=== PATIENT | male | born 1950 | race Caucasian/White ===

== ENCOUNTER 2018-04-21 17:04 | Emergency (ER) | payer MEDICARE, MEDICAID ==
[2018-04-21] MEDS ORDERED: Ondansetron 4 MG/2 ML SDV IVPUSH ONE (17:29)
[2018-04-21] MEDS ORDERED: Sodium Chloride 0.9% 10 ML Syringe FLUSH PRN (17:29)
[2018-04-21] MEDS ORDERED: Sodium Chloride 0.9% 1,000 ML IV SCH (17:30)
[2018-04-21] MEDS ORDERED: HYDROmorphone 0.5 MG/0.5 ML SYRINGE IVPUSH ONE (17:30)
[2018-04-21] MEDS ORDERED: HYDROmorphone 0.5 MG/0.5 ML SYRINGE ONE ×2 (19:57→20:02)
[2018-04-21] MEDS ORDERED: Sodium Chloride 0.9% 1,000 ML ONE ×2 (19:57→20:01)
[2018-04-21] MEDS ORDERED: Sodium Chloride 0.9% 10 ML Syringe IV ONE (20:10)
[2018-04-21] MEDS ORDERED: Iopamidol 612 MG/ML 150 ML Bottle IV ONE (20:10)
[2018-04-21] MEDS ORDERED: Famotidine 20 MG/2 ML SDV ONE (20:51)
[2018-04-21] MEDS ORDERED: Levofloxacin 500 MG Tab ONE (20:51)
--- NOTE | 2018-04-22 07:52 | EDM.PDOC ---
ED HPI GENERAL MEDICAL PROBLEM - General Chief Complaint: Gastrointestinal Problem Stated Complaint: VOMITING X 2 DAYS Time Seen by Provider: 04/21/18 17:14 Source of Information: Reports: Patient History Limitations: Reports: No Limitations - History of Present Illness INITIAL COMMENTS - FREE TEXT/NARRATIVE: The patient presents with nausea, vomiting and abdominal pain. This started 2 days ago. He thinks he ate a bad hamburger on Saturday. He had a few episodes of diarrhea the first day. He is not able to keep any fluids or food down. He has no fever, chills or cough. He has joint pain. He has his gallbladder and appendix. He says he has taken off many tics in the past few weeks. He is worried he may have an infection from them. Onset: Gradual Duration: Day(s): (2) Location: Reports: Abdomen Quality: Reports: Sharp Severity: Moderate Improves with: Reports: None Worsens with: Reports: None Associated Symptoms: Reports: Nausea/Vomiting. Denies: Chest Pain, Cough, Fever /Chills, Headaches, Shortness of Breath - Related Data Allergies Allergy/AdvReac Type Severity Reaction Status Date / Time boysenberry flavor Allergy Anaphylactic Uncoded 05/25/14 08:50 Shock Home Meds: Home Meds Cyclobenzaprine [Flexeril] 0.5 tab PO TID PRN 05/25/14 [History] Hydrocodone/Acetaminophen [Hydrocodone-Acetaminophen 5-325] 1 tab PO Q6HR PRN [History] Zolpidem [Ambien] 5 mg PO BEDTIME PRN 05/25/14 [History] oxyCODONE HCl/Acetaminophen [oxyCODONE-Acetaminophen 5-325] 1 tab PO Q6H PRN [History] Past Medical History Musculoskeletal History: Reports: Arthritis Social & Family History - Tobacco Use Smoking Status *Q: Never Smoker - Recreational Drug Use Recreational Drug Use: No ED ROS GENERAL - Review of Systems Review Of Systems: See Below Constitutional: Reports: No Symptoms HEENT: Reports: No Symptoms Respiratory: Reports: No Symptoms Cardiovascular: Reports: No Symptoms Endocrine: Reports: No Symptoms GI/Abdominal: Reports: Abdominal Pain, Diarrhea, Nausea, Vomiting : Reports: No Symptoms Musculoskeletal: Reports: Muscle Pain ED EXAM, GI/ABD - Physical Exam Exam: See Below Exam Limited By: No Limitations General Appearance: Alert, No Apparent Distress Ears: Normal External Exam Nose: Normal Inspection Head: Atraumatic, Normocephalic Neck: Normal Inspection Respiratory/Chest: No Respiratory Distress, Lungs Clear, Normal Breath Sounds Cardiovascular: Regular Rate, Rhythm, No Edema, No Murmur GI/Abdominal Exam: Soft, No Organomegaly, No Mass, Tender (Moderate generalized tenderness) Back Exam: Normal Inspection Course - Vital Signs Last Recorded V/S: Last Vital Signs Temp 98.2 F 04/21/18 17:12 Pulse 77 04/21/18 17:12 Resp 16 04/21/18 17:12 BP 125/76 04/21/18 17:12 Pulse Ox 95 04/21/18 17:12 - Orders/Labs/Meds Orders: Active Orders 24 hr Category Date Time Status Cardiac Monitoring [RC] . DIRECTED Care 04/21/18 17:29 Active Peripheral IV Care [RC] . DIRECTED Care 04/21/18 17:29 Active Abdomen Pelvis w Cont [CT] Routine Exams 04/21/18 19:22 Taken LYME, WESTERN BLOT, SERUM [REF] Stat Lab 04/21/18 18:36 Ordered UA W/MICROSCOPIC [URIN] Stat Lab 04/21/18 20:23 Ordered ED Antiemetic Medication Reflex [OM.PC] Stat Oth 04/21/18 17:29 Ordered Peripheral IV Insertion Adult [OM.PC] Stat Oth 04/21/18 17:29 Ordered Labs: Laboratory Tests 04/21/18 04/21/18 04/21/18 Range/Units 17:45 17:45 20:23 WBC 9.84 H (4.23-9.07) K/mm3 RBC 5.34 (4.63-6.08) M/mm3 Hgb 16.2 (13.7-17.5) gm/L Hct 47.7 (40.1-51.0) % MCV 89.3 (79.0-92.2) fl MCH 30.3 (25.7-32.2) pg MCHC 34.0 (32.2-35.5) g/dl RDW Std Deviation 41.4 (35.1-43.9) fL Plt Count 335 (163-337) K/mm3 MPV 10.5 (9.4-12.3) fl Neut % (Auto) 70.0 H (34.0-67.9) % Lymph % (Auto) 17.6 L (21.8-53.1) % [place] % (Auto) 11.4 (5.3-12.2) % Eos % (Auto) 0.5 L (0.8-7.0) Baso % (Auto) 0.1 (0.1-1.2) % Neut # (Auto) 6.89 H (1.78-5.38) K/mm3 Lymph # (Auto) 1.73 (1.32-3.57) K/mm3 [place] # (Auto) 1.12 H (0.30-0.82) K/mm3 Eos # (Auto) 0.05 (0.04-0.54) K/mm3 Baso # (Auto) 0.01 (0.01-0.08) K/mm3 Sodium 138 (136-145) mEq/L Potassium 3.9 (3.5-5.1) mEq/L Chloride 100 (98-107) mEq/L Carbon Dioxide 28 (21-32) mEq/L Anion Gap 13.9 (5-15) BUN 18 (7-18) mg/dL Creatinine 1.0 (0.7-1.3) mg/dL Est Cr Clr Drug Dosing 69.72 mL/min Estimated GFR (MDRD) > 60 (>60) mL/min BUN/Creatinine Ratio 18.0 (14-18) Glucose 109 (80-115) mg/dL Calcium 10.2 H (8.5-10.1) mg/dL Total Bilirubin 1.1 H (0.2-1.0) mg/dL AST 31 (15-37) U/L ALT 27 (16-63) U/L Alkaline Phosphatase 79 (46-116) U/L Total Protein 8.9 H (6.4-8.2) g/dl Albumin 4.2 (3.4-5.0) g/dl Globulin 4.7 gm/dL Albumin/Globulin Ratio 0.9 L (1-2) Lipase 99 (73-393) U/L Urine Color Dark yellow (Yellow) Urine Appearance Clear (Clear) Urine pH 6.0 (5.0-8.0) Ur Specific Adkins 1.020 (1.005-1.030) Urine Protein 1+ H (Negative) Urine Glucose (UA) Negative (Negative) Urine Ketones Negative (Negative) Urine Occult Blood Negative (Negative) Urine Nitrite Negative (Negative) Urine Bilirubin Negative (Negative) Urine Urobilinogen 0.2 (0.2-1.0) Ur Leukocyte Esterase Negative (Negative) Urine RBC 0-5 (0-5) /hpf Urine WBC 0-5 (0-5) /hpf Ur Epithelial Cells Not seen (0-5) /hpf Urine Bacteria Not seen (FEW) /hpf Hyaline Casts 0-5 (0-5) /lpf Urine Mucus Not seen (FEW) /hpf Meds: Medications Discontinued Medications Generic Name Dose Route Start Last Admin Trade Name Freq PRN Reason Stop Dose Admin Famotidine Confirm 04/21/18 20:51 Pepcid Administered 04/21/18 20:52 Dose 20 mg .ROUTE .STK-MED ONE Hydromorphone HCl 0.5 mg 04/21/18 17:30 04/21/18 17:52 Dilaudid IVPUSH 04/21/18 17:31 0.5 mg ONETIME ONE Administration Hydromorphone HCl Confirm 04/21/18 19:57 Dilaudid Administered 04/21/18 19:58 Dose 0.5 mg .ROUTE .STK-MED ONE Hydromorphone HCl Confirm 04/21/18 20:02 Dilaudid Administered 04/21/18 20:03 Dose 0.5 mg .ROUTE .STK-MED ONE Sodium Chloride 1,000 mls @ 1,000 mls/hr 04/21/18 17:30 04/21/18 17:54 Normal Saline IV 1,000 mls/hr .BOLUS SCAR Administration Sodium Chloride Confirm 04/21/18 19:57 Normal Saline Administered 04/21/18 19:58 Dose 1,000 mls @ as directed .ROUTE .STK-MED ONE Sodium Chloride Confirm 04/21/18 20:01 Normal Saline Administered 04/21/18 20:02 Dose 1,000 mls @ as directed .ROUTE .STK-MED ONE Levofloxacin Confirm 04/21/18 20:51 Levaquin Administered 04/21/18 20:52 Dose 500 mg .ROUTE .STK-MED ONE Ondansetron HCl 4 mg 04/21/18 17:29 04/21/18 17:51 Zofran IVPUSH 04/21/18 17:30 4 mg ONETIME ONE Administration Sodium Chloride 10 ml 04/21/18 17:29 04/21/18 17:51 Saline Flush FLUSH 10 ml ASDIRECTED PRN Administration Keep Vein Open - Re-Assessments/Exams Free Text/Narrative Re-Assessment/Exam: 04/22/18 08:08 I ordered an IV NS 1L bolus, zofran 4mg IV, dilaudid 0.5mg IV, labs, and a UA. I also ordered a lyme disease test. His WBC was elevated at 9.84. His total bili is 1.1. His protein was elevated. His lipase was negative. His UA shows no UTI. He still had pain so I ordered dilaudid 0.5mg IV. I then ordered a CT of his abdomen and pelvis. That showed he had a gastritis and duodenitis. I am concerned this may be infectious. He thought he ate a bad burger in town. He also has 5 dogs and 22 cats in his house. I gave him a dose of levaquin here and some pepcid. I will get him on cipro, zofran and something for pain. He should also take some pepcid. Departure - Departure Time of Disposition: 08:25 Disposition: Home, Self-Care 01 Condition: Good Clinical Impression: Gastritis and duodenitis Nausea & vomiting Qualifiers: Vomiting type: unspecified Vomiting Intractability: non-intractable Qualified Code(s): R11.2 - Nausea with vomiting, unspecified - Discharge Information Referrals: PCP,None [Primary Care Provider] - Forms: ED Department Discharge Additional Instructions: Take the medication as prescribed. You should also take some pepcid daily. Drink plenty of fluids. Follow up with your doctor. Please return if you are worse. - My Orders Last 24 Hours: My Active Orders 04/21/18 17:29 Cardiac Monitoring [RC] . DIRECTED Peripheral IV Care [RC] . DIRECTED ED Antiemetic Medication Reflex [OM.PC] Stat Peripheral IV Insertion Adult [OM.PC] Stat 04/21/18 18:36 LYME, WESTERN BLOT, SERUM [REF] Stat 04/21/18 19:22 Abdomen Pelvis w Cont [CT] Routine 04/21/18 20:23 UA W/MICROSCOPIC [URIN] Stat - Assessment/Plan Last 24 Hours: My Active Orders 04/21/18 17:29 Cardiac Monitoring [RC] . DIRECTED Peripheral IV Care [RC] . DIRECTED ED Antiemetic Medication Reflex [OM.PC] Stat Peripheral IV Insertion Adult [OM.PC] Stat 04/21/18 18:36 LYME, WESTERN BLOT, SERUM [REF] Stat 04/21/18 19:22 Abdomen Pelvis w Cont [CT] Routine 04/21/18 20:23 UA W/MICROSCOPIC [URIN] Stat
--- NOTE | 2018-04-23 12:53 | CT ---
CT abdomen and pelvis Technique: Multiple axial sections were obtained from above the dome of the diaphragm inferiorly to the pubic symphysis. Intravenous contrast was utilized. Delayed images were obtained through the bladder. No oral contrast was utilized. Findings: Increased wall enhancement is seen at the gastroduodenal junction. There appears to be some luminal narrowing present at this junction. Mild surrounding inflammatory change is seen. Visualized lung bases show nothing acute. Liver shows no focal parenchymal abnormality. Spleen appears within normal limits. Adrenal glands show no nodule. Gallbladder contains no calcified gallstones. Pancreas is normal. Kidneys show symmetric contrast enhancement without hydronephrosis or mass. Small cyst is seen within the mid left kidney measuring 9mm which is incidental. Aorta shows no aneurysmal dilatation. No retroperitoneal adenopathy or mesenteric abnormalities are seen. Appendix is seen which appears normal. No pelvic mass or adenopathy is seen. No free fluid is identified. Delayed images show contrast within the distal ureters and within the bladder. Small fat containing bilateral inguinal hernias are noted. Scattered degenerative change is noted throughout the spine. Impression: 1. Findings at gastroduodenal junction most likely due to duodenitis and distal gastritis. Difficult to exclude ulcer. 2. Other incidental findings. Diagnostic code #3 I agree with preliminary report from [facility], finalized at 04/21/18, 9:32 PM Central Time
== END 2018-04-21 20:30 | disposition home or self-care (01) ==
LOC: JD.ED 17:04
DX: K29.70 Gastritis, unspecified, without bleeding (principal); K29.80 Duodenitis without bleeding; M19.90 Unspecified osteoarthritis, unspecified site; Z91.018 Allergy to other foods
CPT/HCPCS: 36415; 74177; 80053; 81001; 83690; 85025; 96374; 99284; A9270; J1170; J2405; J7040; J7050; Q9967; 96375; 96376

== ENCOUNTER 2019-02-26 16:10 | Emergency (ER) | payer MEDICARE, MEDICAID ==
--- NOTE | 2019-02-26 16:50 | EDM.PDOC ---
ED HPI GENERAL MEDICAL PROBLEM - General Chief Complaint: Upper Extremity Injury/Pain Stated Complaint: LT SHOULDER PAIN Time Seen by Provider: 02/26/19 16:23 Source of Information: Reports: Patient, RN Notes Reviewed History Limitations: Reports: No Limitations - History of Present Illness INITIAL COMMENTS - FREE TEXT/NARRATIVE: Patient is a 69-year-old male who presents to the ED today for the evaluation of left shoulder pain. He notes that he has a "bum" left shoulder and he is going to need surgery on this to provide definitive management. He notes that he has pain medication, hydrocodone's 10/325 and tramadol 50 mg that he gets filled in [place] by another provider. He states that the hydrocodone, even taken as directed does not provide any pain relief any longer. He states for the last week his left shoulder has been giving him more trouble than lately. He notes that he now has limited range of motion, where it is hard to lift even his blankets to go to bed he states that he is not able to get much rest. Due to pain in his left shoulder. He also notes that he has had previous joints replaced in this facility by Dr. Goodman, this includes his R shoulder, and he notes that he does need to have his hips replaced eventually. Left Shoulder Pain Score (Numeric/FACES): 8 - Related Data Allergies Allergy/AdvReac Type Severity Reaction Status Date / Time boysenberry flavor Allergy Anaphylactic Uncoded 05/25/14 08:50 Shock Home Meds: Home Meds Hydrocodone/Acetaminophen [Hydrocodone-Acetaminophen 5-325] 10 - 325 mg PO Q6HR PRN 05/25/14 [History] Baclofen 10 mg PO Q8H PRN 02/26/19 [History] oxyCODONE HCl/Acetaminophen [Percocet 10-325 mg Tablet] 1 each PO Q6H #28 tablet 02/26/19 [Rx] traMADol [Ultram] 50 mg PO Q6H 02/26/19 [History] Past Medical History Musculoskeletal History: Reports: Arthritis, RA - Past Surgical History GI Surgical History: Reports: Hernia, Abdominal Musculoskeletal Surgical History: Reports: Shoulder Surgery, Other (See Below) Other Musculoskeletal Surgeries/Procedures:: shoulder pain; right knee surgery 3 times Social & Family History - Tobacco Use Smoking Status *Q: Never Smoker - Caffeine Use Caffeine Use: Reports: Soda - Recreational Drug Use Recreational Drug Use: No Review of Systems - Review of Systems Review Of Systems: See Below Constitutional: Reports: No Symptoms Eyes: Reports: No Symptoms Ears: Reports: No Symptoms Nose: Reports: No Symptoms Mouth/Throat: Reports: No Symptoms Respiratory: Reports: No Symptoms Cardiovascular: Reports: No Symptoms GI/Abdominal: Reports: No Symptoms Genitourinary: Reports: No Symptoms Musculoskeletal: Reports: Shoulder Pain, Joint Pain (hip pain) Skin: Reports: No Symptoms Neurological: Reports: No Symptoms Psychiatric: Reports: No Symptoms ED EXAM, GENERAL - Physical Exam Exam: See Below Exam Limited By: No Limitations General Appearance: Alert, WD/WN, No Apparent Distress Eye Exam: Bilateral Eye: Normal Inspection Ears: Normal External Exam Head: Atraumatic, Normocephalic Respiratory/Chest: No Respiratory Distress, Lungs Clear, Normal Breath Sounds, No Accessory Muscle Use, Chest Non-Tender Cardiovascular: Normal Peripheral Pulses, Regular Rate, Rhythm, No Murmur Back Exam: Normal Inspection Extremities: Normal Inspection, Normal Capillary Refill, Limited Range of Motion (of left shoulder d/t pain) Neurological: Alert, Oriented, Normal Cognition, No Motor/Sensory Deficits Psychiatric: Normal Affect, Normal Mood Skin Exam: Warm, Dry, Intact, Normal Color, No Rash Course - Vital Signs Last Recorded V/S: Last Vital Signs Temp 97.3 F 02/26/19 16:18 Pulse 65 02/26/19 16:18 Resp 20 02/26/19 16:18 BP 116/73 02/26/19 16:18 Pulse Ox 97 02/26/19 16:18 - Re-Assessments/Exams Free Text/Narrative Re-Assessment/Exam: 02/26/19 17:42 Patient presents to the ED for the evaluation of left shoulder pain. This is a chronic issue for him. I did review his PD MP and he does get hydrocodone's 10/ 325 and tramadol 50 mg from a another provider. He did get a full prescription refill on 03 February, I did count his pills with him and he has taken appropriate amount of pain medications. It appears that the hydrocodone is not providing him pain relief. I did write him a prescription for 1 week's worth of oxycodone tablets, an MRI outpatient of his left shoulder with referral to the orthostatic surgeon for possible repair. The patient is amenable to this plan. Departure - Departure Time of Disposition: 16:48 Disposition: Home, Self-Care 01 Condition: Fair Clinical Impression: Left shoulder pain Qualifiers: Chronicity: chronic Qualified Code(s): M25.512 - Pain in left shoulder; G89.29 - Other chronic pain - Discharge Information *PRESCRIPTION DRUG MONITORING PROGRAM REVIEWED*: Yes *COPY OF PRESCRIPTION DRUG MONITORING REPORT IN PATIENT DANIKA: No Instructions: Shoulder Pain, [id number] Referrals: PCP,None [Primary Care Provider] - Forms: ED Department Discharge Additional Instructions: You have been evaluated in the ED for your left shoulder pain. You did not get imaging at this ED visit, as an MRI would be the best imaging modality for your left shoulder to further determine the damage in the shoulder joint. Our x-ray department will call you tomorrow a.m. to schedule this MRI. Please use ice/heat as tolerated to the affected area. Please take your previous pain medicine as previously prescribed by your pain contract provider. You have been given a prescription for OxyContin, you have only been given enough tablets for one week so that you may be evaluated by the orthopedic surgeon. You will need to set up care with a primary care provider please call [phone], any family practice provider will be able to do this for you. Please call Ortho for follow-up and further evaluation Dr. Gillespie is our orthopedic surgeon, his office number is [phone]. Please call and set up an appointment as soon as possible for further management. Please return to ED if your symptoms should change or worsen.
== END 2019-02-26 17:27 | disposition home or self-care (01) ==
LOC: JD.ED 16:10
DX: G89.29 Other chronic pain (principal); M25.512 Pain in left shoulder; Z79.899 Other long term (current) drug therapy; Z91.018 Allergy to other foods
CPT/HCPCS: 99283

== ENCOUNTER 2019-04-28 02:31 | Emergency (ER) | payer MEDICARE, MEDICAID ==
[2019-04-28] MEDS ORDERED: Ondansetron 4 MG/2 ML SDV IVPUSH ONE (03:11)
[2019-04-28] MEDS ORDERED: Sodium Chloride 0.9% 10 ML Syringe FLUSH PRN (03:11)
[2019-04-28] MEDS ORDERED: Sodium Chloride 0.9% 1,000 ML IV SCH (03:15)
[2019-04-28] MEDS ORDERED: cloNIDine 0.1 MG Tab PO ONE (03:21)
--- NOTE | 2019-04-28 03:21 | EDM.PDOC ---
ED HPI GENERAL MEDICAL PROBLEM - General Chief Complaint: Gastrointestinal Problem Stated Complaint: WITHDRAW FROM PAIN PILLS 10YRS ON PILLS Time Seen by Provider: 04/28/19 02:58 Source of Information: Reports: Patient, RN Notes Reviewed - History of Present Illness INITIAL COMMENTS - FREE TEXT/NARRATIVE: 6-year-old male comes in with abdominal pain, nausea, vomiting and diarrhea. He eats that he stopped taking his hydrocodone and tramadol "cold turkey about 5 days ago. He states he did fine for the first day or so and since then has been having nausea, vomiting and especially frequent watery diarrhea. He states he has been on pain meds for many years for various arthritic type pains upper and lower extremities and low back. Abdomen Pain Score (Numeric/FACES): 5 - Related Data Allergies Allergy/AdvReac Type Severity Reaction Status Date / Time boysenberry flavor Allergy Anaphylactic Uncoded 04/28/19 02:51 Shock Home Meds: Home Meds Baclofen 10 mg PO Q8H PRN 02/26/19 [History] Ondansetron [Zofran ODT] 4 mg PO Q6H PRN #10 tab.dis 04/28/19 [Rx] cloNIDine [Catapres] 0.1 mg PO Q12HR #20 tab 04/28/19 [Rx] Past Medical History Musculoskeletal History: Reports: Arthritis, RA - Past Surgical History GI Surgical History: Reports: Hernia, Abdominal Musculoskeletal Surgical History: Reports: Shoulder Surgery, Other (See Below) Other Musculoskeletal Surgeries/Procedures:: shoulder pain; right knee surgery 3 times Social & Family History - Tobacco Use Smoking Status *Q: Never Smoker Second Hand Smoke Exposure: No - Caffeine Use Caffeine Use: Reports: None - Recreational Drug Use Recreational Drug Use: Yes ED ROS GENERAL - Review of Systems Review Of Systems: See Below HEENT: Reports: Other (Mouth is dry). Denies: Throat Pain, Throat Swelling Respiratory: Denies: Shortness of Breath Cardiovascular: Denies: Chest Pain GI/Abdominal: Reports: Abdominal Pain (Intermittent generalized abdominal cramps ), Diarrhea, Nausea, Vomiting Musculoskeletal: Reports: Back Pain (Low back, chronic), Joint Pain (Knees and hips, chronic) Skin: Denies: Rash Neurological: Denies: Numbness, Tingling, Weakness ED EXAM, GI/ABD - Physical Exam Exam: See Below General Appearance: Alert, No Apparent Distress Eyes: Bilateral: Normal Appearance Throat/Mouth: Other Head: Atraumatic (Oral mucosa is dry). No: Facial Swelling Neck: Supple Respiratory/Chest: No Respiratory Distress, Lungs Clear, Normal Breath Sounds Cardiovascular: Regular Rate, Rhythm GI/Abdominal Exam: Soft, Non-Tender. No: Guarding Extremities: Normal Inspection, Normal Range of Motion. No: Pedal Edema, Leg Pain Skin Exam: Warm, Dry, No Rash Course - Vital Signs Last Recorded V/S: Last Vital Signs Temp 98.3 F 04/28/19 02:39 Pulse 85 04/28/19 02:39 Resp 20 04/28/19 02:39 BP 148/84 H 04/28/19 03:31 Pulse Ox 97 04/28/19 02:39 - Orders/Labs/Meds Orders: Active Orders 24 hr Category Date Time Status Peripheral IV Care [RC] . DIRECTED Care 04/28/19 03:11 Active Sodium Chloride 0.9% [Normal Saline] 1,000 ml Med 04/28/19 03:15 Active IV ONETIME Sodium Chloride 0.9% [Saline Flush] Med 04/28/19 03:11 Active 10 ml FLUSH ASDIRECTED PRN Peripheral IV Insertion Adult [OM.PC] Stat Oth 04/28/19 03:11 Ordered Medication Orders Sodium Chloride (Normal Saline) 1,000 mls @ 999 mls/hr IV ONETIME [facility] Last Admin: 04/28/19 03:26 Dose: 999 mls/hr Sodium Chloride (Saline Flush) 10 ml FLUSH ASDIRECTED PRN PRN Reason: Keep Vein Open Last Admin: 04/28/19 03:27 Dose: 10 ml Labs: Laboratory Tests 04/28/19 04/28/19 Range/Units 03:25 03:25 WBC 12.81 H (4.23-9.07) K/mm3 RBC 5.37 (4.63-6.08) M/mm3 Hgb 16.1 D (13.7-17.5) gm/L Hct 47.5 (40.1-51.0) % MCV 88.5 (79.0-92.2) fl MCH 30.0 (25.7-32.2) pg MCHC 33.9 (32.2-35.5) g/dl RDW Std Deviation 41.1 (35.1-43.9) fL Plt Count 389 H D (163-337) K/mm3 MPV 10.2 (9.4-12.3) fl Neut % (Auto) 68.1 H (34.0-67.9) % Lymph % (Auto) 19.4 L (21.8-53.1) % [place] % (Auto) 11.3 (5.3-12.2) % Eos % (Auto) 0.3 L (0.8-7.0) Baso % (Auto) 0.2 (0.1-1.2) % Neut # (Auto) 8.71 H (1.78-5.38) K/mm3 Lymph # (Auto) 2.49 (1.32-3.57) K/mm3 [place] # (Auto) 1.45 H (0.30-0.82) K/mm3 Eos # (Auto) 0.04 (0.04-0.54) K/mm3 Baso # (Auto) 0.03 (0.01-0.08) K/mm3 Sodium 137 (136-145) mEq/L Potassium 3.5 (3.5-5.1) mEq/L Chloride 101 (98-107) mEq/L Carbon Dioxide 23 (21-32) mEq/L Anion Gap 16.5 H (5-15) BUN 19 H (7-18) mg/dL Creatinine 0.9 (0.7-1.3) mg/dL Est Cr Clr Drug Dosing 76.37 mL/min Estimated GFR (MDRD) > 60 (>60) mL/min BUN/Creatinine Ratio 21.1 H (14-18) Glucose 114 (80-115) mg/dL Calcium 9.2 (8.5-10.1) mg/dL Total Bilirubin 1.6 H (0.2-1.0) mg/dL AST 51 H (15-37) U/L ALT 62 (16-63) U/L Alkaline Phosphatase 80 (46-116) U/L Total Protein 8.2 (6.4-8.2) g/dl Albumin 4.0 (3.4-5.0) g/dl Globulin 4.2 gm/dL Albumin/Globulin Ratio 1.0 (1-2) Meds: Medications Generic Name Dose Route Start Last Admin Trade Name Freq PRN Reason Stop Dose Admin Sodium Chloride 1,000 mls @ 999 mls/hr 04/28/19 03:15 04/28/19 03:26 Normal Saline IV 999 mls/hr ONETIME SCAR Administration Sodium Chloride 10 ml 04/28/19 03:11 04/28/19 03:27 Saline Flush FLUSH 10 ml ASDIRECTED PRN Administration Keep Vein Open Discontinued Medications Generic Name Dose Route Start Last Admin Trade Name Melita PRN Reason Stop Dose Admin Clonidine HCl 0.1 mg 04/28/19 03:21 04/28/19 03:31 Catapres PO 04/28/19 03:22 0.1 mg ONETIME ONE Administration Ondansetron HCl 4 mg 04/28/19 03:11 04/28/19 03:26 Zofran IVPUSH 04/28/19 03:12 4 mg ONETIME ONE Administration - Re-Assessments/Exams Free Text/Narrative Re-Assessment/Exam: 04/28/19 04:00 Labs show very mild dehydration. We are running a liter of normal saline. Have also given Zofran 4 mg IV, clonidine 0.1 mg oral. A checked on the patient just a couple of minutes ago and he is currently sleeping. Landed discharge home with when necessary Zofran, clonidine 0.1 mg twice a day and also strong suggestion to take [id number] probiotic twice daily. Departure - Departure Time of Disposition: 04:45 Disposition: Home, Self-Care 01 Condition: Fair Clinical Impression: Vomiting, Diarrhea, Opioid withdrawal - Discharge Information Prescriptions: cloNIDine [Catapres] 0.1 mg PO Q12HR #20 tab Ondansetron [Zofran ODT] 4 mg PO Q6H PRN #10 tab.dis PRN Reason: Nausea/Vomiting Referrals: Alessia Shannon MD [Primary Care Provider] - Forms: ED Department Discharge Additional Instructions: Clear liquids and bland diet as tolerated, Zofran 4 mg ODT every 8 hours when necessary severe nausea or vomiting. Clonidine 0.1 mg twice daily. Follow-up with your regular medical provider in about 2-3 days for recheck. Call for appointment. - My Orders Last 24 Hours: My Active Orders 04/28/19 03:11 Peripheral IV Care [RC] . DIRECTED Sodium Chloride 0.9% [Saline Flush] 10 ml FLUSH ASDIRECTED PRN Peripheral IV Insertion Adult [OM.PC] Stat 04/28/19 03:15 Sodium Chloride 0.9% [Normal Saline] 1,000 ml IV ONETIME - Assessment/Plan Last 24 Hours: My Active Orders 04/28/19 03:11 Peripheral IV Care [RC] . DIRECTED Sodium Chloride 0.9% [Saline Flush] 10 ml FLUSH ASDIRECTED PRN Peripheral IV Insertion Adult [OM.PC] Stat 04/28/19 03:15 Sodium Chloride 0.9% [Normal Saline] 1,000 ml IV ONETIME
== END 2019-04-28 04:49 | disposition home or self-care (01) ==
LOC: JD.ED 02:31
DX: F11.23 Opioid dependence with withdrawal (principal); M06.9 Rheumatoid arthritis, unspecified; M19.90 Unspecified osteoarthritis, unspecified site; Z91.018 Allergy to other foods
CPT/HCPCS: 36415; 80053; 85025; 96361; 96374; 99284; A9270; J2405; J7040

== ENCOUNTER 2019-07-27 19:33 | Emergency (ER) | payer MEDICARE, MEDICAID ==
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
== END 2019-07-27 20:30 | disposition home or self-care (01) ==
LOC: JD.ED 19:33
DX: M25.512 Pain in left shoulder (principal); M06.9 Rheumatoid arthritis, unspecified; Z79.899 Other long term (current) drug therapy; Z91.048 Other nonmedicinal substance allergy status
CPT/HCPCS: 99283

== ENCOUNTER 2019-12-30 06:14 | Day surgery (SDC) | payer MEDICARE, MEDICAID ==
[~2019-12-30 06:14] MED LIST: Albuterol 0.083% 2.5 MG/3 ML Neb Soln NEB PRN; Lactated Ringers 1,000 ML IV SCH; Lidocaine 1%/Sod Bicarbonate in NS 8.4% 1 ML Syringe IDERM PRN; Sodium Chloride 0.9% 10 ML Syringe FLUSH PRN
[2019-12-30] MEDS ORDERED: Albuterol/Ipratropium 3.0-0.5 MG/3 ML Neb Soln NEB SCH (07:30)
--- NOTE | 2019-12-30 07:36 | PCM.PREANE ---
Preanesthetic Assessment - Anesthesia/Transfusion/Family Hx Anesthesia History: Prior Anesthesia Without Reaction Family History of Anesthesia Reaction: No Transfusion History: No Prior Transfusion(s) Intubation History: Unknown - Review of Systems General: No Symptoms Pulmonary: No Symptoms (History of ETOH abuse, last drank 20 years ago./Never smoked per patient (COPD)-last used inhaler months ago. Pre-op albuterol nebulizer given.) Cardiovascular: No Symptoms (Histroy of elevated HTN) Gastrointestinal: No Symptoms (GERD-denies) Neurological: No Symptoms (chronic back pain 04/27, Arthritis noted by patient over all of body) Other: Reports: Anxiety (patient denies.) - Physical Assessment NPO Status Date: 12/29/19 NPO Status Time: 23:00 Vital Signs: Last Vital Signs Temp 36.6 C 12/30/19 06:20 Pulse 64 12/30/19 06:20 Resp 16 12/30/19 06:20 BP 109/71 12/30/19 06:20 Pulse Ox 95 12/30/19 06:20 Height: 1.75 m Weight: 84.368 kg ASA Class: 2 Mental Status: Alert & Oriented x3 Airway Class: Mallampati = 2 Dentition: Reports: Dentures Thyro-Mental Finger Breadths: 3 Mouth Opening Finger Breadths: 3 ROM/Head Extension: Full Lungs: Clear to Auscultation, Normal Respiratory Effort, Wheezing (forced on expiration noted otherwise clear.) Cardiovascular: Regular Rate, Regular Rhythm, No Murmurs - Lab Values: Laboratory Last Values MRSA (PCR) Negative 12/23/19 15:47 All labs reviewed and noted and within acceptable ranges to proceed with scheduled procedure. 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 Gillespie for post operative pain control.) Pt an Appropriate Candidate for the Planned Anesthesia: Yes Alternatives and Risks of Anesthesia Discussed w Pt/Guardian: Yes Pt/Guardian Understands and Agrees with Anesthesia Plan: Yes PreAnesthesia Questionnaire Cardiovascular History: Reports: Hypertension, Other (See Below) Other Cardiovascular History: heart block Respiratory History: Reports: COPD Gastrointestinal History: Reports: GERD Genitourinary History: Reports: None LEGAL ANALYST History: Reports: None Musculoskeletal History: Reports: Arthritis, RA Other Musculoskeletal History: chronic pain, AC joint bone spurs, rotator cuff tear, malunion fracture Neurological History: Reports: None Psychiatric History: Reports: Addiction, Anxiety, Other (See Below) Other Psychiatric History: history of ETOH abx, 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, insomnia Endocrine/Metabolic History: Reports: Vitamin D Deficiency Hematologic History: Reports: None Immunologic History: Reports: None Oncologic (Cancer) History: Reports: None Dermatologic History: Reports: Other (See Below) Other Dermatologic History: HSV-2, abcess, scabies, rash - Past Surgical History Head Surgeries/Procedures: Reports: None HEENT Surgical History: Reports: Cataract Surgery, Other (See Below) Other HEENT Surgeries/Procedures: has dentures Cardiovascular Surgical History: Reports: None Respiratory Surgical History: Reports: None GI Surgical History: Reports: Colonoscopy, Hernia, Abdominal Female Surgical History: Reports: None Male Surgical History: Reports: None Endocrine Surgical History: Reports: None Neurological Surgical History: Reports: None Musculoskeletal Surgical History: Reports: Arthroscopic Knee, Shoulder Surgery, Other (See Below) Other Musculoskeletal Surgeries/Procedures:: shoulder pain; right knee surgery 3 times Oncologic Surgical History: Reports: None Dermatological Surgical History: Reports: None - SUBSTANCE USE Smoking Status *Q: Never Smoker Recreational Drug Use History: No - HOME MEDS Home Medications: Home Meds Baclofen 10 mg PO Q8H PRN 02/26/19 [History] Acetaminophen/HYDROcodone [[place] 325-5 MG] 1 tab PO Q4H PRN 12/29/19 [History] traZODone HCl [Trazodone HCl] 50 mg PO BEDTIME PRN 12/29/19 [History] - CURRENT (IN HOUSE) MEDS Current Meds: Current Medications Albuterol/Ipratropium (Duoneb 3.0-0.5 Mg/3 Ml) 3 ml NEB ONETIME SCAR Epinephrine HCl (Adrenalin) 3 mg .XX ONETIME SCAR Lactated Ringer's (Ringers, Lactated) 1,000 mls @ 125 mls/hr IV ASDIRECTED SCAR Stop: 12/30/19 23:00 Lidocaine/Sodium Bicarbonate (Buffered Lidocaine 1% In Ns 8.4%) 0.25 ml IDERM ONETIME PRN PRN Reason: Prior to IV Start Stop: 12/30/19 18:00 Sodium Chloride (Saline Flush) 10 ml FLUSH ASDIRECTED PRN PRN Reason: Keep Vein Open Stop: 12/30/19 18:00 Discontinued Medications Albuterol (Proventil Neb Soln) 2.5 mg NEB ONETIME PRN PRN Reason: bronchodilation Stop: 09/09/19 14:00 Lactated Ringer's (Ringers, Lactated) 1,000 mls @ 125 mls/hr IV ASDIRECTED SCAR Stop: 09/09/19 23:00 Lidocaine/Sodium Bicarbonate (Buffered Lidocaine 1% In Ns 8.4%) 0.25 ml IDERM ONETIME PRN PRN Reason: Prior to IV Start Stop: 09/09/19 18:00 Sodium Chloride (Saline Flush) 10 ml FLUSH ASDIRECTED PRN PRN Reason: Keep Vein Open Stop: 09/09/19 18:00
[2019-12-30] MEDS ORDERED: Lidocaine 1% 4 ML ONE ×2 (07:43→08:37)
[2019-12-30] MEDS ORDERED: Ertapenem 1 GM Vial ONE (07:44)
[2019-12-30] MEDS ORDERED: EPINEPHrine 1 MG/ML SDV ONE (07:44)
[2019-12-30] MEDS ORDERED: Ropivacaine 0.5% 5 MG/ML 30 ML SDV ONE (07:44)
[2019-12-30] MEDS ORDERED: Midazolam 1 MG/ML 2 ML SDV ONE (07:46)
[2019-12-30] MEDS ORDERED: fentaNYL 250 MCG/5 ML SDV ONE (07:47)
[2019-12-30] MEDS ORDERED: EPINEPHrine 1 MG/1 ML Amp SCH (08:30)
[2019-12-30] MEDS ORDERED: Ondansetron 4 MG/2 ML SDV ONE (08:36)
[2019-12-30] MEDS ORDERED: Rocuronium 50 MG/5 ML Vial ONE (08:36)
[2019-12-30] MEDS ORDERED: Propofol 200 MG/20 ML SDV ONE (08:37)
[2019-12-30] MEDS ORDERED: ceFAZolin 1 GM Vial ONE (08:37)
[2019-12-30] MEDS ORDERED: Lactated Ringers 1,000 ML ONE (09:17)
--- NOTE | 2019-12-30 10:22 | PCM.SN ---
- Free Text/Narrative Note: Date: 12/30/2019 Time Out: 811 Start: 811 Stop: 829 Surgical Procedure: Left Shoulder Video Arthroscopy and Rotator Cuff Repair Diagnosis Left Shoulder Rotator Cuff Tear Current Procedure: Left interscalene block under US guidance for postoperative pain control requested by Dr. Gillespie. Patient chart reviewed, risk/benefits discussed with patient, consent obtained. Patient positioned supine, monitors/alarms on, oxygen placed via nasal cannula at 2 LPM. IV sedation administered: Versed 2mg IV, Fentanyl 50, mcg IV given in pre-op prior to block placement. Left shoulder prepped with two chloropreps. Sterile drapes placed with aseptic technique noted. Under US guidance, left subclavian artery visualized along with the left brachial plexus. Plexus followed up to C6 cricoid level, and area localized with 2mls of 1% lidocaine. 22gauge 2 inch stimiplex needle advanced under US with 0.6mV with stimulation of biceps noted. Good stimulation noted with decreased voltage and absent at 0.3mVs. 1ml of Normal Saline injected with loss of stimulation noted to confirm needle not placed intraneurally. Incremental dosing of 5mls with negative aspiration noted prior to each injection of 0.5% ropivacaine with 1:200,000 epinephrine. Total volume=30mls. Please refer to nurses noted for vital signs. Tomasa Gordillo CRNA
[2019-12-30] MEDS ORDERED: fentaNYL 100 MCG/2 ML SDV IVPUSH PRN (11:12)
--- NOTE | 2019-12-30 11:13 | PCM.POSTAN ---
POST ANESTHESIA ASSESSMENT - MENTAL STATUS Mental Status: Alert, Oriented - VITAL SIGNS Vital Signs: Last Vital Signs Temp 36.6 C 12/30/19 06:20 Pulse 64 12/30/19 06:20 Resp 16 12/30/19 06:20 BP 109/71 12/30/19 06:20 Pulse Ox 97 12/30/19 07:28 - RESPIRATORY Respiratory Status: Respiratory Rate WNL, Airway Patent, O2 Saturation Stable, Supplemental Oxygen - CARDIOVASCULAR CV Status: Pulse Rate WNL, Blood Pressure Stable - GASTROINTESTINAL GI Status: No Symptoms - PAIN Pain Score: 0 - POST OP HYDRATION Hydration Status: Adequate & Stable - OBSERVATIONS Free Text/Narrative:: no anesthesia complications noted
--- NOTE | 2019-12-30 14:29 | PCM48HPAN ---
Post Anesthesia Note - EVALUATION WITHIN 48HRS OF ANESTHETIC Vital Signs in Normal Range: Yes Patient Participated in Evaluation: Yes Respiratory Function Stable: Yes Airway Patent: Yes Cardiovascular Function Stable: Yes Hydration Status Stable: Yes Pain Control Satisfactory: Yes Nausea and Vomiting Control Satisfactory: Yes Mental Status Recovered: Yes Vital Signs: Last Vital Signs Temp 37.2 C 12/30/19 12:10 Pulse 84 12/30/19 13:05 Resp 14 12/30/19 13:05 BP 132/93 H 12/30/19 13:05 Pulse Ox 92 L 12/30/19 13:05
--- NOTE | 2020-01-01 12:47 | PCM.OPNOTE ---
- General Post-Op/Procedure Note Date of Surgery/Procedure: 12/30/19 Operative Procedure(s): left shoulder video arthoscopy with massive rotator cuff repair, subacromial decompression, biceps tenotomy and extensive debridement Pre Op Diagnosis: left shoulder rotator cuff tear with impingement Post-Op Diagnosis: same with biceps tendinopathy Anesthesia Technique: General ET Tube, Regional Block Primary Surgeon: Soren Gillespie Anesthesia Provider: Aftab Mcdonnell Regulatory Product Manager: Hansa Howell EBL in mLs: 5 Complications: None Condition: Good
--- NOTE | 2020-01-01 13:19 | OR ---
DATE OF OPERATION: 12/30/2019 SURGEON: Soren Gillespie MD OPERATION PERFORMED: Left shoulder video arthroscopy with massive rotator cuff repair, subacromial decompression, biceps tenotomy, and extensive debridement. PREOPERATIVE DIAGNOSIS: Left shoulder rotator cuff tear with impingement. POSTOPERATIVE DIAGNOSIS: Left shoulder rotator cuff tear with impingement with biceps tendinopathy. ANESTHESIA: General endotracheal intubation with regional interscalene block. ANESTHESIA PROVIDER: Aftab Mcdonnell CRNA DYE RANGE FEEDER: Hansa Howell LPN ESTIMATED BLOOD LOSS: 5 mL. COMPLICATIONS: None. CONDITION: Stable. DESCRIPTION OF PROCEDURE: The patient was identified in the preop holding area. Proper site was marked and identified by the surgeon. The patient was taken back to the operating theater, where after adequate anesthesia, the patient was placed in the lazy right lateral decubitus position. A wedge was placed posteriorly. The patient was secured to the table. At this time, left shoulder was then sterilely prepped and draped in the usual sterile fashion. OR-wide time-out was performed. The patient received 2 g of IV Ancef and 12 pounds of traction was applied to the left upper extremity. Standard posterior incision was made. Scope trocar was introduced into the glenohumeral joint. With the use of a spinal needle, anterior portal was then created as well with an outside-in technique. The patient was noted to have a massive full-thickness rotator cuff tear of the supraspinatus as well as the anterior portion of the infraspinatus. At this time, he was noted to have significant biceps fraying as well as biceps tendinopathy with some fraying of the superior labrum. At this time, a biceps tenotomy was performed as well as an extensive debridement of the synovium as well as the anterior and superior labrum. The labrum otherwise was found to be intact with no instability. The subscapularis tendon was intact. At this time, the scope trocar was removed and attention was turned to the subacromial space. The patient was noted to have a large amount of bursitis and synovitis noted in the subacromial space and an extensive debridement was done at this time. A lateral portal was then created. With the use of a spinal needle, two medial row 4.5 mm Arthrex SwiveLock anchors, triple loaded with FiberTape were then placed medially. Before this, a good bony bleeding surface had been done using a 4.0 full-radius macy. The suture limbs were then passed anterior to posterior with all 12 limbs exiting through good tissue through the previous footprint. The Fiberwire limbs, all 8 strands were then tied for a medial-row repair and then cut. The 2 limbs of FiberTape, the most anterior and then the third one were brought anteriorly and another 4.75 mm Arthrex SwiveLock anchor was placed anteriorly for a lateral row. The remaining 2 limbs of FiberTape were then brought posteriorly and another anchor was placed posteriorly for a second lateral row repair. It had good watertight repair of the rotator cuff at this time. Subacromial decompression with a 4.0 full-radius macy was then done bringing it to a smooth border to the posterior portion of the acromion. Excess saline was drained from the shoulder. 3-0 nylon suture was used for closure of the skin. The patient tolerated the procedure well and was sent to PACU in stable condition with a sterile soft dressing and a pillow sling. XIMENA /[id number]
== END 2019-12-30 13:20 | disposition home or self-care (01) ==
LOC: JD.SDS 06:14
PROVIDERS: ATTEND Orthopaedic Surgery
DX: M75.122 Complete rotator cuff tear or rupture of left shoulder, not specified as traumatic (principal); M25.812 Other specified joint disorders, left shoulder; M75.22 Bicipital tendinitis, left shoulder; M19.019 Primary osteoarthritis, unspecified shoulder; J43.9 Emphysema, unspecified; M06.9 Rheumatoid arthritis, unspecified; G47.00 Insomnia, unspecified; K21.9 Gastro-esophageal reflux disease without esophagitis; I10 Essential (primary) hypertension; Z79.899 Other long term (current) drug therapy; G89.18 Other acute postprocedural pain
CPT/HCPCS: 29823; 29826; 29827; 87641; 94640; C1713; J0171; J0690; J2001; J2250; J2405; J2704; J2795; J3010; J7120; 01630; 64415; J1335; J7620-GY

== ENCOUNTER 2020-05-28 18:08 | Emergency (ER) | payer MEDICARE, MEDICAID ==
--- NOTE | 2020-05-28 19:26 | EDM.PDOC ---
ED HPI GENERAL MEDICAL PROBLEM - General Chief Complaint: General Stated Complaint: CRAMPS IN LEGS,HANDS,AND FEET Time Seen by Provider: 05/28/20 19:03 Source of Information: Reports: Patient History Limitations: Reports: No Limitations - History of Present Illness INITIAL COMMENTS - FREE TEXT/NARRATIVE: This is a 70-year-old male. He comes tonight because he has had 4 days of spasms in his calves he also says his hands and his feet. He apparently takes some potassium or can and has been drinking water and he is not certain why he is having the spasms. He does have a history of some sort of arthritis for which she takes hydrocodone twice a day and has a pain contract with Dr. Morales in [place]. He comes tonight because the spasms are unrelenting and he is not able to sleep at night. He has no idea why he is having these spasms. He does drink some green tea but he says he does that because is good for him. Denies any fever or chills, no cough or congestion, no other acute symptoms. - Related Data Allergies Allergy/AdvReac Type Severity Reaction Status Date / Time No Known Drug Allergies Allergy N/A Verified 05/28/20 18:29 Home Meds: Home Meds Baclofen 10 mg PO Q8H PRN 02/26/19 [History] Acetaminophen/HYDROcodone [[place] 325-5 MG] 1 tab PO Q4H PRN 12/29/19 [History] traZODone HCl [Trazodone HCl] 50 mg PO BEDTIME PRN 12/29/19 [History] Albuterol Sulfate [Albuterol Sulfate Hfa] 18 gm IH 04/08/20 [History] Past Medical History Cardiovascular History: Reports: Other (See Below) Other Cardiovascular History: heart block Respiratory History: Reports: COPD Gastrointestinal History: Reports: GERD Genitourinary History: Reports: None IT CONSULTING DIRECTOR History: Reports: None Musculoskeletal History: Reports: Arthritis, RA Other Musculoskeletal History: chronic pain Neurological History: Reports: None Psychiatric History: Reports: Addiction, Anxiety, Other (See Below) Other Psychiatric History: history of ETOH abx, 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, insomnia Endocrine/Metabolic History: Reports: Vitamin D Deficiency Hematologic History: Reports: None Immunologic History: Reports: None Oncologic (Cancer) History: Reports: None Dermatologic History: Reports: Other (See Below) Other Dermatologic History: HSV-2, abcess, scabies, rash - Past Surgical History Head Surgeries/Procedures: Reports: None HEENT Surgical History: Reports: Cataract Surgery, Other (See Below) Other HEENT Surgeries/Procedures: has dentures Respiratory Surgical History: Reports: None GI Surgical History: Reports: Hernia, Abdominal Male Surgical History: Reports: None Endocrine Surgical History: Reports: None Neurological Surgical History: Reports: None Musculoskeletal Surgical History: Reports: Shoulder Surgery, Other (See Below) Oncologic Surgical History: Reports: None Dermatological Surgical History: Reports: None Social & Family History - Family History Family Medical History: Noncontributory - Tobacco Use Smoking Status *Q: Never Smoker - Caffeine Use Caffeine Use: Reports: Soda ED ROS GENERAL - Review of Systems Review Of Systems: See Below Constitutional: Denies: Fever, Chills HEENT: Reports: No Symptoms Respiratory: Denies: Shortness of Breath, Cough Cardiovascular: Denies: Chest Pain Endocrine: Reports: No Symptoms GI/Abdominal: Denies: Abdominal Pain, Diarrhea, Nausea, Vomiting : Reports: No Symptoms Musculoskeletal: Reports: Other (History of arthritis in his joints) Skin: Reports: No Symptoms Neurological: Reports: No Symptoms Psychiatric: Reports: No Symptoms ED EXAM, GENERAL - Physical Exam Exam: See Below Exam Limited By: No Limitations General Appearance: Alert, WD/WN, Other (Occasional distress when he has a spasm in his right calf) Eye Exam: Bilateral Eye: Normal Inspection Ears: Normal External Exam Nose: Normal Inspection Throat/Mouth: Normal Voice, No Airway Compromise Head: Normocephalic Neck: Supple Respiratory/Chest: No Respiratory Distress, Lungs Clear, Normal Breath Sounds Cardiovascular: Regular Rate, Rhythm, No Murmur Back Exam: Full Range of Motion Extremities: Normal Inspection, Normal Range of Motion, Other (When he talks about having a spasm he says he his toes will curl back as and extend back yet he complains of the belly of his gastrocnemius as being the place of pain, when I palpate his muscles in his calves they do not appear to be tight or tense though they are sore, he has full flexion and extension of his ankles. He is able to walk with no significant difficulty and holds his balance well. While I talked to him he did not have any hand spasms noted.) Neurological: Alert, Oriented Psychiatric: Normal Affect, Normal Mood Skin Exam: Warm, Dry Course - Vital Signs Last Recorded V/S: Last Vital Signs Temp 97.9 F 05/28/20 18:26 Pulse 59 L 05/28/20 18:26 Resp 16 05/28/20 18:26 BP 145/81 H 05/28/20 18:26 Pulse Ox 97 05/28/20 18:26 - Orders/Labs/Meds Labs: Laboratory Tests 05/28/20 05/28/20 05/28/20 Range/Units 18:46 18:46 18:46 WBC 8.34 (4.23-9.07) K/mm3 RBC 5.04 (4.63-6.08) M/mm3 Hgb 15.0 (13.7-17.5) gm/dl Hct 47.0 (40.1-51.0) % MCV 93.3 H D (79.0-92.2) fl MCH 29.8 (25.7-32.2) pg MCHC 31.9 L (32.2-35.5) g/dl RDW Std Deviation 46.1 H (35.1-43.9) fL Plt Count 317 (163-337) K/mm3 MPV 9.6 (9.4-12.3) fl Neut % (Auto) 68.7 H (34.0-67.9) % Lymph % (Auto) 18.9 L (21.8-53.1) % [place] % (Auto) 9.6 (5.3-12.2) % Eos % (Auto) 1.2 (0.8-7.0) Baso % (Auto) 0.5 (0.1-1.2) % Neut # (Auto) 5.73 H (1.78-5.38) K/mm3 Lymph # (Auto) 1.58 (1.32-3.57) K/mm3 [place] # (Auto) 0.80 (0.30-0.82) K/mm3 Eos # (Auto) 0.10 (0.04-0.54) K/mm3 Baso # (Auto) 0.04 (0.01-0.08) K/mm3 Sodium 138 (136-145) mEq/L Potassium 3.6 (3.5-5.1) mEq/L Chloride 102 (98-107) mEq/L Carbon Dioxide 27 (21-32) mEq/L Anion Gap 12.6 (5-15) BUN 20 H (7-18) mg/dL Creatinine 1.0 (0.7-1.3) mg/dL Est Cr Clr Drug Dosing 67.75 mL/min Estimated GFR (MDRD) > 60 (>60) mL/min BUN/Creatinine Ratio 20.0 H (14-18) Glucose 189 H (83-115) mg/dL Calcium 9.0 (8.5-10.1) mg/dL Phosphorus 4.0 (2.6-4.7) mg/dL Magnesium 2.2 (1.8-2.4) mg/dl Total Bilirubin 0.7 (0.2-1.0) mg/dL AST 28 (15-37) U/L ALT 43 (16-63) U/L Alkaline Phosphatase 63 (46-116) U/L Total Protein 7.6 (6.4-8.2) g/dl Albumin 3.5 (3.4-5.0) g/dl Globulin 4.1 gm/dL Albumin/Globulin Ratio 0.9 L (1-2) - Re-Assessments/Exams Free Text/Narrative Re-Assessment/Exam: 05/28/20 20:10 I spoke to the patient regarding his test results and his electrolytes as well as magnesium and phosphorus and calcium are all within normal limits. I do not know why he is having these muscle spasms but I will give him some muscle relaxers to help at home he is to follow-up with his family doctor regarding th is work-up. He indicates he is not withdrawing from narcotics because he has been taking his pain medications faithfully. Departure - Departure Time of Disposition: 20:11 Disposition: Home, Self-Care 01 Condition: Fair Clinical Impression: Muscle spasm of both lower legs - Discharge Information *PRESCRIPTION DRUG MONITORING PROGRAM REVIEWED*: Not Applicable *COPY OF PRESCRIPTION DRUG MONITORING REPORT IN PATIENT DANIKA: Not Applicable Instructions: Muscle Cramps and Spasms, [id number] Referrals: Alessia Shannon MD [Primary Care Provider] - Forms: ED Department Discharge Additional Instructions: Get the medications from the [facility] machine in the lobby. Take the medication for spasms as needed, follow-up with your family doctor this coming week for continued evaluation of why you are having these muscle spasms, return to the ER if needed Sepsis Event Note (ED) - Evaluation Sepsis Screening Result: No Definite Risk - Focused Exam Vital Signs: Vital Signs Temp Pulse Resp BP Pulse Ox 05/28/20 18:26 97.9 F 59 L 16 145/81 H 97
== END 2020-05-28 20:30 | disposition home or self-care (01) ==
LOC: JD.ED 18:08
DX: M62.838 Other muscle spasm (principal); J44.9 Chronic obstructive pulmonary disease, unspecified; F41.9 Anxiety disorder, unspecified
CPT/HCPCS: 36415; 80053; 83735; 84100; 85025; 99282; 99283

== ENCOUNTER 2020-08-12 15:32 | Emergency (ER) | payer MEDICARE, MEDICAID ==
--- NOTE | 2020-08-12 16:32 | EDM.PDOC ---
ED HPI GENERAL MEDICAL PROBLEM - General Chief Complaint: Skin Complaint Stated Complaint: SKIN COMPLAINT/BUTTOCKS Time Seen by Provider: 08/12/20 16:22 - History of Present Illness INITIAL COMMENTS - FREE TEXT/NARRATIVE: 70-year-old male presents the emergency room skin lesions. Patient had 2 areas on his left buttocks that came to pimples he squeezed them and peel them apart had some exudative-like material drained from the area but now they are not healing. He also has an area on his right knee that is the same thing. He is not had any fevers or chills the areas are getting a little more uncomfortable and they drained lots of what sounds like serous fluid. Left Buttock Pain Score (Numeric/FACES): 8 - Related Data Allergies Allergy/AdvReac Type Severity Reaction Status Date / Time No Known Drug Allergies Allergy N/A Verified 05/28/20 18:29 Home Meds: Home Meds Baclofen 10 mg PO Q8H PRN 02/26/19 [History] Acetaminophen/HYDROcodone [[place] 325-5 MG] 1 tab PO Q4H PRN 12/29/19 [History] traZODone HCl [Trazodone HCl] 50 mg PO BEDTIME PRN 12/29/19 [History] Albuterol Sulfate [Albuterol Sulfate Hfa] 18 gm IH 04/08/20 [History] Sulfamethoxazole/Trimethoprim [Bactrim Ds Tablet] 1 each PO BID #20 tablet 08/12/20 [Rx] Past Medical History Cardiovascular History: Reports: Other (See Below) Other Cardiovascular History: heart block Respiratory History: Reports: COPD Gastrointestinal History: Reports: GERD Genitourinary History: Reports: None IMMIGRATION PARALEGAL History: Reports: None Musculoskeletal History: Reports: Arthritis, RA Other Musculoskeletal History: chronic pain Neurological History: Reports: None Psychiatric History: Reports: Addiction, Anxiety, Other (See Below) Other Psychiatric History: history of ETOH abx, 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, insomnia Endocrine/Metabolic History: Reports: Vitamin D Deficiency Hematologic History: Reports: None Immunologic History: Reports: None Oncologic (Cancer) History: Reports: None Dermatologic History: Reports: Other (See Below) Other Dermatologic History: HSV-2, abcess, scabies, rash - Past Surgical History Head Surgeries/Procedures: Reports: None HEENT Surgical History: Reports: Cataract Surgery, Other (See Below) Other HEENT Surgeries/Procedures: has dentures Respiratory Surgical History: Reports: None GI Surgical History: Reports: Hernia, Abdominal Male Surgical History: Reports: None Endocrine Surgical History: Reports: None Neurological Surgical History: Reports: None Musculoskeletal Surgical History: Reports: Shoulder Surgery, Other (See Below) Oncologic Surgical History: Reports: None Dermatological Surgical History: Reports: None Social & Family History - Family History Family Medical History: Noncontributory - Caffeine Use Caffeine Use: Reports: Soda ED ROS GENERAL - Review of Systems Review Of Systems: See Below Constitutional: Reports: No Symptoms Respiratory: Reports: No Symptoms Cardiovascular: Reports: No Symptoms GI/Abdominal: Reports: No Symptoms ED EXAM, SKIN/RASH Exam: See Below Exam Limited By: No Limitations General Appearance: Alert, No Apparent Distress Respiratory/Chest: No Respiratory Distress, Lungs Clear, Normal Breath Sounds Cardiovascular: Regular Rate, Rhythm, No Edema, No Murmur Skin: Warm, Dry, Intact, Other (Patient has an area of the largest lesion on his left buttocks roughly 1-1/2 cm circular with erythematous margins and an inflamed base there is nothing to culture at this point. He has a smaller lesion adjacent to this. And he has an area on his right knee that is less than a centimeter round that is doing the same thing.) Course - Vital Signs Last Recorded V/S: Last Vital Signs Temp 36.1 C 08/12/20 15:55 Pulse 74 08/12/20 15:55 Resp 16 08/12/20 15:55 BP 134/66 08/12/20 15:55 Pulse Ox 93 L 08/12/20 15:55 - Re-Assessments/Exams Free Text/Narrative Re-Assessment/Exam: 08/12/20 16:41 Patient will be started on antibiotics considering MRSA. He is advised to do Epson salt soaks for 20 minutes twice daily. And follow-up with his regular provider this next week. Departure - Departure Time of Disposition: 16:42 Disposition: Home, Self-Care 01 Clinical Impression: Skin lesion, infected - Discharge Information Referrals: Alessia Shannon MD [Primary Care Provider] - Additional Instructions: Return to the emergency room with any questions problems or worsening symptoms. 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 Take 1 twice daily until all gone. forklift supervisor some Epson salts and soak your bottom in knee and Epson salt solution that is warm for 20 minutes twice daily. Follow-up with Dr. Shannon the end of this next week. Sepsis Event Note (ED) - Evaluation Sepsis Screening Result: No Definite Risk - Focused Exam Vital Signs: Vital Signs Temp Pulse Resp BP Pulse Ox 08/12/20 15:55 36.1 C 74 16 134/66 93 L
== END 2020-08-12 17:26 | disposition home or self-care (01) ==
LOC: JD.ED 15:32
DX: L98.9 Disorder of the skin and subcutaneous tissue, unspecified (principal); L08.9 Local infection of the skin and subcutaneous tissue, unspecified; J44.9 Chronic obstructive pulmonary disease, unspecified
CPT/HCPCS: 99282; 99283

== ENCOUNTER 2020-12-25 19:44 | Emergency (ER) | payer MEDICARE, MEDICAID ==
--- NOTE | 2020-12-25 20:30 | EDM.PDOC ---
ED HPI GENERAL MEDICAL PROBLEM - General Chief Complaint: Lower Extremity Injury/Pain Stated Complaint: KNEE SWELLING AND ABSCESS Time Seen by Provider: 12/25/20 19:54 Source of Information: Reports: Patient History Limitations: Reports: No Limitations - History of Present Illness INITIAL COMMENTS - FREE TEXT/NARRATIVE: Mr. De La Rosa is a very pleasant 70-year-old gentleman who now presents to the ED with a few concerns, but primarily about an infection of his anterior right knee. He states that he has suffered from recurrent infections to this area ever since he underwent 3 arthroscopic procedures to the right knee in 2004. This most current episode began about 3 weeks ago. 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 He reports that he numbed his anterior knee yesterday, then lanced an apparent abscess, draining a considerable amount of purulent material. He states that he is primarily here to figure out why he keeps getting an infection to the area. He also points out a number of skin lesions on various parts of his body. He acknowledges that he has 24 cats, and also takes care of a number of strays. He acknowledges that when he feeds them, he gets down on his right knee, and that he hears and feels a crunching sensation, but, for reasons unclear, he does not seem to think that that has anything to do with his recurrent knee infection. The patient also showed me an anterior abdominal hernia that he says he has had his entire life. He states that he has not talked to anyone about getting it repaired. Here in the ED, the patient's initial BP is found to be mildly elevated at 148/83, otherwise, he is hemodynamically stable, afebrile, saturating 97% on room air. Other than his recurrent knee infection and lifelong abdominal hernia, the patient denies having a recent fever, chills, sore throat, ear pain, nasal or sinus congestion, cough, dyspnea, chest pain, palpitations, nausea, vomiting, constipation, diarrhea, abdominal pain, urinary symptoms, recent weight gain or weight loss, recent bloody bowel movements or black bowel movements, recent joint aches, headaches, or rashes. The patient's PCP is Dr. Alessia Shannon. He states that he has not seen her in over a year. His pain specialist is Dr. Ilan Morales. His Psych Assistant is Dr. Jon Higgins. He does not recall the name of his Orthopedic Surgeon. He has not received an influenza vaccine this season, but agreed to receive one here in the ED. Middle Back Pain Score (Numeric/FACES): 9 - Related Data Allergies Allergy/AdvReac Type Severity Reaction Status Date / Time No Known Drug Allergies Allergy N/A Verified 12/25/20 19:58 Home Meds: Home Meds Baclofen 10 mg PO Q8H PRN 02/26/19 [History] Acetaminophen/HYDROcodone [[place] 325-5 MG] 1 tab PO Q4H PRN 12/29/19 [History] traZODone HCl [Trazodone HCl] 50 mg PO BEDTIME PRN 12/29/19 [History] Albuterol Sulfate [Albuterol Sulfate Hfa] 18 gm IH ASDIRECTED 04/08/20 [History] Past Medical History Cardiovascular History: Reports: High Cholesterol (untreated) Musculoskeletal History: Reports: Osteoarthritis Psychiatric History: Reports: Addiction (alcohol), Other (See Below) Endocrine/Metabolic History: Reports: Vitamin D Deficiency - Past Surgical History HEENT Surgical History: Reports: Cataract Surgery (bilateral), Oral Surgery (dentures) Musculoskeletal Surgical History: Reports: Arthroscopic Knee (x 3 in 2004), Shoulder Surgery (bilateral, arthroscopic) Social & Family History - Tobacco Use Tobacco Use Status *Q: Never Tobacco User Second Hand Smoke Exposure: No - Caffeine Use Caffeine Use: Reports: Coffee - Alcohol Use Alcohol Use History: Yes Date/Time of Last Drink Comment: Alcoholic - sober x 1999 - Recreational Drug Use Recreational Drug Use: Yes Drug Use in Last 12 Months: No Recreational Drug Type: Reports: Marijuana/Hashish (last smoked 1985) - Living Situation & Occupation Living situation: Reports: Single, Alone, Other (Has 24 cats + strays) Occupation: Retired ED ROS GENERAL - Review of Systems Review Of Systems: Comprehensive ROS is negative, except as noted in HPI. ED EXAM, GENERAL - Physical Exam Exam: See Below Exam Limited By: No Limitations General Appearance: Alert, WD/WN, No Apparent Distress Extremities: Other (Over the patient's right patella, there is a 2 cm diameter scab, surrounded by a 6 cm diameter area of erythema. The area is indurated, with no palpable fluctuance. It is warm to palpation. It is tender to palpation. Neurovascular status of the right lower extremity is intact.) Course - Vital Signs Last Recorded V/S: Last Vital Signs Temp 36.9 C 12/25/20 19:53 Pulse 92 12/25/20 19:53 Resp 16 12/25/20 19:53 BP 148/83 H 12/25/20 19:53 Pulse Ox 97 12/25/20 19:53 - Orders/Labs/Meds Meds: Medications Discontinued Medications Generic Name Dose Route Start Last Admin Trade Name Melita PRN Reason Stop Dose Admin Influenza Virus Vaccine 1 each 12/25/20 20:46 Pharmacy To Dose - Influenza Vaccine IM 12/25/20 20:47 ONETIME ONE Influenza Virus Vaccine 240 mcg 12/25/20 21:00 12/25/20 20:53 Fluzone High-Dose Quad 2019- IM 12/25/20 21:01 240 mcg .ONCE ONE Administration - Re-Assessments/Exams Free Text/Narrative Re-Assessment/Exam: 12/25/20 20:24 As above, the patient has had a recurrent infection to his anterior right knee on and off over the past 8 years, with his most current episode persisting for the past 3 weeks. He states that he injected his knee with lidocaine yesterday, then lanced it, recovering some purulent fluid. On examination today, the patient has what appears to be a 2 cm diameter scab within a 6 cm diameter area of erythema over his right patella. The area is indurated, with no fluctuance felt whatsoever. It appears to be a relatively simple case of cellulitis at this time. I will prescribe Keflex via [facility], but I stressed to the patient the importance of him following up with Dr. Shannon at the next available appointment. At that time, he can also discuss whether or not he wants to be referred to a surgeon to address his lifelong abdominal hernia. The patient will be given an influenza vaccine prior to discharge. Departure - Departure Time of Disposition: 20:30 Disposition: Home, Self-Care 01 Condition: Good Clinical Impression: Cellulitis of right knee - Discharge Information *PRESCRIPTION DRUG MONITORING PROGRAM REVIEWED*: Not Applicable *COPY OF PRESCRIPTION DRUG MONITORING REPORT IN PATIENT DANIKA: Not Applicable Instructions: Cellulitis, Adult, [id number] Referrals: Alessia Shannon MD [Primary Care Provider] - Jon Higgins MD [Ordering Only Provider] - Ilan Morales MD [Ordering Only Provider] - Forms: ED Department Discharge Additional Instructions: You were seen in the emergency room for a recurrent infection of your right knee. Based on your history and physical examination, you appear to have cellulitis (an infection of the skin) of your right knee. You have been started on the antibiotic cephalexin (Keflex) via [facility]. Take 1 tablet of cephalexin every 6 hours, as prescribed. Finish the entire prescription unless told otherwise by a doctor. We strongly recommend that you do not try to grant the wound on your own. We recommend that you follow-up with your PCP, Dr. Alessia Shannon, at the next available appointment. At that time, you can talk to her about being referred to a surgeon to address your lifelong abdominal hernia. If any other problems, please do not hesitate to return to the ER. You were given an influenza vaccine during your ER visit. Sepsis Event Note (ED) - Evaluation Sepsis Screening Result: No Definite Risk - Focused Exam Vital Signs: Vital Signs Temp Pulse Resp BP Pulse Ox 12/25/20 19:53 36.9 C 92 16 148/83 H 97
[2020-12-25] MEDS ORDERED: FLU Vacc QV2020-21(65YR UP)/PF 240 MCG/0.7 ML Syringe IM ONE (21:00)
== END 2020-12-25 21:00 | disposition home or self-care (01) ==
LOC: JD.ED 19:44
DX: L03.115 Cellulitis of right lower limb (principal); Z23 Encounter for immunization
CPT/HCPCS: 90662; 99283; G0008

== ENCOUNTER 2021-04-09 09:42 | Emergency (ER) | payer MEDICARE, MEDICAID ==
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
--- NOTE | 2021-04-09 11:03 | CR ---
Left shoulder: 3 views of the left shoulder were obtained. Comparison: Prior MRI left shoulder arthrogram study of 04/12/20. Joint space narrowing is noted within the acromioclavicular joint with inferior spurring being seen within the distal clavicle at the acromioclavicular joint. Glenohumeral joint appears within normal limits. No acute fracture, dislocation or other bony abnormality is appreciated. Impression: 1. Degenerative change within the acromioclavicular joint. 2. No additional abnormality is appreciated on left shoulder study. Diagnostic code #2
== END 2021-04-09 11:40 | disposition home or self-care (01) ==
LOC: SUPCPDRO 09:42 → JD.ED 09:42
DX: M75.42 Impingement syndrome of left shoulder (principal); J44.9 Chronic obstructive pulmonary disease, unspecified; Z91.018 Allergy to other foods
CPT/HCPCS: 73030-26-LT; 73030-LT; 99283

== ENCOUNTER 2021-04-30 19:53 | Emergency (ER) | payer MEDICARE, MEDICAID ==
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
[2021-04-30] MEDS ORDERED: Albuterol 6.7 GM Inhaler INH ONE (21:15)
[2021-04-30] MEDS ORDERED: Morphine 2 MG/ML SYRINGE IVPUSH STA (22:25)
--- NOTE | 2021-05-01 08:12 | CR ---
Chest: Portable view of the chest was obtained. Comparison: No prior chest imaging is available. Prior right shoulder surgery is noted. Scattered degenerative spurring is noted within the spine. Heart size and mediastinum are normal. Lungs are clear with no acute parenchymal change. Impression: 1. Prior right shoulder surgery. Degenerative spurring within the spine. 2. Nothing acute is appreciated on portable chest x-ray. Diagnostic code #2
== END 2021-04-30 23:25 | disposition home or self-care (01) ==
LOC: JD.ED 19:53
DX: T59.811A Toxic effect of smoke, accidental (unintentional), initial encounter (principal); E78.00 Pure hypercholesterolemia, unspecified; J44.9 Chronic obstructive pulmonary disease, unspecified; Z91.018 Allergy to other foods
CPT/HCPCS: 36415; 71045; 80053; 82375; 84484; 85025; 93005; 94640; 96374; 99284; A9270; J2270; 93010; 99283

== ENCOUNTER 2021-06-11 17:48 | Emergency (ER) | payer MEDICARE, MEDICAID ==
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
[2021-06-11] MEDS ORDERED: Cephalexin 500 MG Cap PO STA (20:20)
--- NOTE | 2021-06-11 20:28 | CR ---
Left foot: 3 views of the left foot were obtained. Comparison: No prior foot exam is available. No calcaneal spurs are seen. Slight joint space narrowing is noted within the first MTP joint. No acute fracture, dislocation or other bony abnormality is appreciated. Impression: 1. Mild degenerative change within the first MTP joint. 2. Nothing acute is otherwise seen on the foot study. Diagnostic code #2
== END 2021-06-11 20:43 | disposition home or self-care (01) ==
LOC: JD.ED 17:48
DX: L03.116 Cellulitis of left lower limb (principal); E78.00 Pure hypercholesterolemia, unspecified; J44.9 Chronic obstructive pulmonary disease, unspecified; Z79.899 Other long term (current) drug therapy; Z91.018 Allergy to other foods
CPT/HCPCS: 73630; 99283; A9270

== ENCOUNTER 2021-09-23 18:54 | Emergency (ER) | payer MEDICARE, MEDICAID ==
[2021-09-23] MEDS ORDERED: HYDROmorphone 1 MG/ML Syringe IM ONE (19:35)
[2021-09-23] MEDS ORDERED: Ketorolac 60 MG/2 ML SDV IM ONE (19:39)
--- NOTE | 2021-09-23 19:42 | EDM.PDOC ---
ED HPI GENERAL MEDICAL PROBLEM - General Chief Complaint: Laceration Stated Complaint: LT POINTER FINGER LAC Time Seen by Provider: 09/23/21 19:20 Source of Information: Reports: Patient, RN Notes Reviewed History Limitations: Reports: No Limitations - History of Present Illness INITIAL COMMENTS - FREE TEXT/NARRATIVE: Patient is a 71-year-old male who presents to the ER for evaluation of his left hand/finger injury. States that he was holding a rash that his cat had corn. When the rat must have jumped a little bit, the patient became startled, and had some sort of small hammer type tool and went to hit the ratchet, but ended up hitting his left second metacarpal area instead. The whole base of the finger is swollen. Extremely painful. There is a very superficial linear abrasion over the posterior MCP. Denying any numbness or tingling into the fingertip. All range of motion is intact at this time. Patient denies any other sick-like symptoms, fever/chills, cough/shortness of breath, nausea/vomiting/diarrhea. Left Finger-Index Pain Score (Numeric/FACES): 8 - Related Data Allergies Allergy/AdvReac Type Severity Reaction Status Date / Time bosenberry Allergy Severe Anaphylactic Uncoded 09/23/21 19:18 Shock Home Meds: Home Meds Albuterol Sulfate [Albuterol Sulfate Hfa] 18 gm IH ASDIRECTED 04/08/20 [History] atorvaSTATin [Lipitor] 20 mg PO BEDTIME 04/30/21 [History] Hydrocodone/Acetaminophen [HYDROcodone-Acetaminophen 5-325 MG] 1 each PO Q6H PRN #12 tablet 09/23/21 [Rx] Past Medical History Cardiovascular History: Reports: High Cholesterol Other Cardiovascular History: heart block Respiratory History: Reports: COPD Gastrointestinal History: Reports: GERD Genitourinary History: Reports: None Musculoskeletal History: Reports: Osteoarthritis Other Musculoskeletal History: chronic pain Neurological History: Reports: None Psychiatric History: Reports: Addiction, Other (See Below) Other Psychiatric History: history of ETOH abx, 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, insomnia Endocrine/Metabolic History: Reports: Vitamin D Deficiency Hematologic History: Reports: None Immunologic History: Reports: None Oncologic (Cancer) History: Reports: None Dermatologic History: Reports: Other (See Below) Other Dermatologic History: HSV-2, abcess, scabies, rash - Infectious Disease History Infectious Disease History: Reports: Chicken Pox, Measles, Mumps - Past Surgical History Head Surgeries/Procedures: Reports: None HEENT Surgical History: Reports: Cataract Surgery, Oral Surgery Other HEENT Surgeries/Procedures: has dentures Cardiovascular Surgical History: Reports: None Respiratory Surgical History: Reports: None Male Surgical History: Reports: None Endocrine Surgical History: Reports: None Neurological Surgical History: Reports: None Musculoskeletal Surgical History: Reports: Arthroscopic Knee, Shoulder Surgery Other Musculoskeletal Surgeries/Procedures:: shoulder pain; right knee surgery 3 times Oncologic Surgical History: Reports: None Dermatological Surgical History: Reports: None Social & Family History - Family History Family Medical History: No Pertinent Family History - Tobacco Use Tobacco Use Status *Q: Never Tobacco User - Caffeine Use Caffeine Use: Reports: Soda - Recreational Drug Use Recreational Drug Use: No - Living Situation & Occupation Living situation: Reports: Single, Alone, Other (Has 24 cats + strays) Occupation: Retired ED ROS GENERAL - Review of Systems Review Of Systems: Comprehensive ROS is negative, except as noted in HPI. ED EXAM, SKIN/RASH Exam: See Below Exam Limited By: No Limitations General Appearance: Alert, WD/WN, No Apparent Distress Respiratory/Chest: No Respiratory Distress, Lungs Clear, Normal Breath Sounds, No Accessory Muscle Use, Chest Non-Tender Cardiovascular: Normal Peripheral Pulses, Regular Rate, Rhythm Peripheral Pulses: 2+: Radial (L), Radial (R) Extremities: Normal Inspection, Normal Capillary Refill Neurological: Alert, Oriented, Normal Cognition, No Motor/Sensory Deficits Psychiatric: Normal Affect, Normal Mood Skin: Warm, Dry, Normal Color, No Rash, Wound/Incision (Linear laceration to the Left posterior second MCP. No active bleeding noted.) Course - Vital Signs Last Recorded V/S: Last Vital Signs Temp 98.4 F 09/23/21 19:15 Pulse 74 09/23/21 19:15 Resp 19 09/23/21 19:15 BP 134/84 09/23/21 19:15 Pulse Ox 93 L 09/23/21 19:15 - Orders/Labs/Meds Orders: Active Orders 24 hr Category Date Time Status Hand Comp Min 3V Lt [CR] Stat Exams 09/23/21 19:24 Ordered Meds: Medications Discontinued Medications Generic Name Dose Route Start Last Admin Trade Name Freq PRN Reason Stop Dose Admin Hydromorphone HCl 1 mg 09/23/21 19:35 09/23/21 19:59 Hydromorphone 1 Mg/Ml Syringe IM 09/23/21 19:36 Not Given ONETIME ONE Ketorolac Tromethamine 60 mg 09/23/21 19:39 09/23/21 19:54 Ketorolac 60 Mg/2 Ml Sdv IM 09/23/21 19:40 60 mg ONETIME ONE Administration - Re-Assessments/Exams Free Text/Narrative Re-Assessment/Exam: 09/23/21 19:40 Patient presents to the ER for his finger crush injury; we will go ahead and get x-rays of his hand for evaluation. Patient's laceration is superficial and will not require sutures however if the bone is broken, we will send him home on antibiotics due to having to have the area wrapped. 09/23/21 20:14 X-rays were obtained and show no acute fracture or other bony abnormality. Reviewed by myself and Dr. Vázquez, official radiology read is still pending. We will go ahead get the patient with some pain meds for home use and discharge him with general recommendations. Departure - Departure Time of Disposition: 20:15 Disposition: Home, Self-Care 01 Condition: Good Clinical Impression: Crushing injury of finger of left hand - Discharge Information *PRESCRIPTION DRUG MONITORING PROGRAM REVIEWED*: Yes *COPY OF PRESCRIPTION DRUG MONITORING REPORT IN PATIENT DANIKA: No Prescriptions: Hydrocodone/Acetaminophen [HYDROcodone-Acetaminophen 5-325 MG] 1 each PO Q6H PRN #12 tablet PRN Reason: Pain Instructions: Laceration Care, Adult, [id number] Referrals: Alessia Shannon MD [Primary Care Provider] - Forms: ED Department Discharge Additional Instructions: You have been evaluated in the ED for your left finger injury. Your x-ray demonstrated no acute fractures or other bony abnormalities. Please use ice as tolerated to the affected area. Please try to elevate the affected area to relieve swelling. You may take Tylenol 500 mg or ibuprofen 600mg q6 hrs for pain relief. Please do so until you have a tolerable level of pain with activity. Do not exceed 4000mg Tylenol or 3200mg ibuprofen in a 24 hour time period. You were given a prescription for a strong pain medication, hydrocodone/acetaminophen 5/325mg, please take 1 tab every 6 hours as needed for pain not relieved by Tylenol or ibuprofen alone. Please note this medication does contain Tylenol in it, so do not take more than 4000 mg in a 24-hour time span. These medications can be addictive, so please take as few as possible to achieve adequate pain control. These meds can also be quite constipating, recommend that you increase your oral fluid intake and take a stool softener like MiraLAX while taking these medications. Do not drive while taking this medication. This medication was electronically sent to the [place] pharmacy located in the [facility] grocery store. Please follow-up with your regular provider for re-evaluation, if your injury is not feeling much better in roughly 7 to 10 days time. Please return to ED if your symptoms should change or worsen. Sepsis Event Note (ED) - Evaluation Sepsis Screening Result: No Definite Risk - Focused Exam Vital Signs: Vital Signs Temp Pulse Resp BP Pulse Ox 09/23/21 19:15 98.4 F 74 19 134/84 93 L - My Orders Last 24 Hours: My Active Orders 09/23/21 19:24 Hand Comp Min 3V Lt [CR] Stat - Assessment/Plan Last 24 Hours: My Active Orders 09/23/21 19:24 Hand Comp Min 3V Lt [CR] Stat
--- NOTE | 2021-09-24 06:07 | CR ---
Left hand: 3 views of the left hand were obtained. Comparison: Prior left hand study of 09/18/19. Severe joint space narrowing is seen within the third MCP joint. Lesser joint space narrowing is noted within the fifth MCP joint. Scattered joint space narrowing is noted within the DIP joints with osteophytes. Joint space narrowing is noted off the distal navicular bone. Mild deformity is seen within the proximal phalanx of the second finger compatible with old injury. No acute fracture, dislocation or other bony abnormality is appreciated. Impression: 1. Diffuse degenerative change as noted above. 2. Old injury believed to be present within the proximal phalanx of the left second finger. 3. No definite acute osseous abnormality is appreciated. Diagnostic code #2
== END 2021-09-23 20:30 | disposition home or self-care (01) ==
LOC: JD.ED 18:54
DX: S67.191A Crushing injury of left index finger, initial encounter (principal); E78.00 Pure hypercholesterolemia, unspecified; J44.9 Chronic obstructive pulmonary disease, unspecified; Z79.899 Other long term (current) drug therapy; Z91.018 Allergy to other foods; W22.09XA Striking against other stationary object, initial encounter
CPT/HCPCS: 73130; 96372; 99283; J1885

== ENCOUNTER 2021-11-20 16:25 | Emergency (ER) | payer MEDICARE, MEDICAID ==
--- NOTE | 2021-11-20 17:51 | EDM.PDOC ---
ED HPI GENERAL MEDICAL PROBLEM - General Chief Complaint: Upper Extremity Injury/Pain Stated Complaint: SHOULDER INJURY Time Seen by Provider: 11/20/21 16:39 Source of Information: Reports: Patient, RN Notes Reviewed History Limitations: Reports: No Limitations - History of Present Illness INITIAL COMMENTS - FREE TEXT/NARRATIVE: Patient is a 71-year-old male presenting to the emergency department with complaints of left shoulder pain. Reports that he tripped over his cat and hit his shoulder on the wall. He reports chronic pain to the shoulder. He has had previous rotator cuff surgery and reports that his bicep was cut. He is scheduled to have shoulder replacement done at [facility] in [place] after his "scabies scabs" heal. He is able to move his shoulder, however it is painful. He has not taken anything for pain. Left Shoulder Pain Score (Numeric/FACES): 7 - Related Data Allergies Allergy/AdvReac Type Severity Reaction Status Date / Time bosenberry Allergy Severe Anaphylactic Uncoded 11/20/21 16:36 Shock Home Meds: Home Meds Albuterol Sulfate [Albuterol Sulfate Hfa] 18 gm IH ASDIRECTED 04/08/20 [History] atorvaSTATin [Lipitor] 20 mg PO BEDTIME 04/30/21 [History] Hydrocodone/Acetaminophen [Hydrocodone-Acetamin 5-325 mg] 1 each PO Q4H PRN #12 tablet 11/20/21 [Rx] Past Medical History Cardiovascular History: Reports: High Cholesterol Other Cardiovascular History: heart block Respiratory History: Reports: COPD Gastrointestinal History: Reports: GERD Genitourinary History: Reports: None Musculoskeletal History: Reports: Osteoarthritis Other Musculoskeletal History: chronic pain Neurological History: Reports: None Psychiatric History: Reports: Addiction, Other (See Below) Other Psychiatric History: history of ETOH abx, 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, insomnia Endocrine/Metabolic History: Reports: Vitamin D Deficiency Hematologic History: Reports: None Immunologic History: Reports: None Oncologic (Cancer) History: Reports: None Dermatologic History: Reports: Other (See Below) Other Dermatologic History: HSV-2, abcess, scabies, rash - Infectious Disease History Infectious Disease History: Reports: Chicken Pox, Measles, Mumps - Past Surgical History HEENT Surgical History: Reports: Cataract Surgery, Oral Surgery Other HEENT Surgeries/Procedures: has dentures GI Surgical History: Reports: Hernia, Abdominal Musculoskeletal Surgical History: Reports: Arthroscopic Knee, Shoulder Surgery Other Musculoskeletal Surgeries/Procedures:: shoulder pain; right knee surgery 3 times Social & Family History - Family History Family Medical History: No Pertinent Family History - Tobacco Use Tobacco Use Status *Q: Never Tobacco User Second Hand Smoke Exposure: No - Caffeine Use Caffeine Use: Reports: Soda - Recreational Drug Use Recreational Drug Use: No - Living Situation & Occupation Living situation: Reports: Single, Alone, Other (Has 24 cats + strays) Occupation: Retired Review of Systems - Review of Systems Review Of Systems: Comprehensive ROS is negative, except as noted in HPI. ED EXAM, GENERAL - Physical Exam Exam: See Below Exam Limited By: No Limitations General Appearance: Alert, WD/WN, No Apparent Distress Respiratory/Chest: No Respiratory Distress, Lungs Clear, Normal Breath Sounds, No Accessory Muscle Use, Chest Non-Tender Cardiovascular: Normal Peripheral Pulses, Regular Rate, Rhythm, No Edema, No Gallop, No JVD, No Murmur, No Rub Extremities: Other (Slight swelling and tenderness to palpation over the humeral head. No obvious deformity.) Neurological: Alert, Oriented, CN II-XII Intact, Normal Cognition, Normal Gait, Normal Reflexes, No Motor/Sensory Deficits Psychiatric: Normal Affect, Normal Mood Skin Exam: Warm, Dry, Intact, Normal Color, No Rash Course - Vital Signs Last Recorded V/S: Last Vital Signs Temp 98.1 F 11/20/21 16:30 Pulse 124 H 11/20/21 16:30 Resp 16 11/20/21 16:30 BP 117/82 11/20/21 16:30 Pulse Ox 91 L 11/20/21 16:30 - Orders/Labs/Meds Orders: Active Orders 24 hr Category Date Time Status Shoulder Comp Lt [CR] Stat Exams 11/20/21 16:44 Taken - Re-Assessments/Exams Free Text/Narrative Re-Assessment/Exam: 11/20/21 17:59 X-ray of the left shoulder shows no acute abnormalities. Recommend intermittent icing. I will gove a short prescription of hydrocodone with Tylenol for pain. Recommend follow-up with orthopedics as scheduled. Discharge instructions as document. Departure - Departure Time of Disposition: 17:59 Disposition: Home, Self-Care 01 Condition: Good Clinical Impression: Contusion of shoulder, left Qualifiers: Encounter type: initial encounter Qualified Code(s): S40.012A - Contusion of left shoulder, initial encounter - Discharge Information *PRESCRIPTION DRUG MONITORING PROGRAM REVIEWED*: Yes *COPY OF PRESCRIPTION DRUG MONITORING REPORT IN PATIENT DANIKA: No Prescriptions: Hydrocodone/Acetaminophen [Hydrocodone-Acetamin 5-325 mg] 1 each PO Q4H PRN #12 tablet PRN Reason: Pain Instructions: Contusion, [id number] Referrals: Alessia Shannon MD [Primary Care Provider] - Forms: ED Department Discharge Additional Instructions: Ice shoulder intermittently over the next few days. Use routine Tylenol and ibuprofen for pain. For pain not relieved by this, you may use one of the hydrocodone with Tylenol. Follow-up with orthopedics as planned. Return to ER as needed. Sepsis Event Note (ED) - Evaluation Sepsis Screening Result: No Definite Risk - Focused Exam Vital Signs: Vital Signs Temp Pulse Resp BP Pulse Ox 11/20/21 16:30 98.1 F 124 H 16 117/82 91 L - My Orders Last 24 Hours: My Active Orders 11/20/21 16:44 Shoulder Comp Lt [CR] Stat - Assessment/Plan Last 24 Hours: My Active Orders 11/20/21 16:44 Shoulder Comp Lt [CR] Stat
--- NOTE | 2021-11-21 09:58 | CR ---
EXAM: XRAY SHOULDER,2+VWS LEFT LOCATION: [facility] DATE/TIME: 11/20/2021 5:14 PM INDICATION: Fell over cat, hit shoulder on wall, shoulder pain. COMPARISON: None. IMPRESSION: Anatomic alignment left shoulder. No acute displaced left shoulder fracture. Moderate-severe left acromioclavicular joint osteoarthritis. Mild left glenohumeral joint osteoarthritis. Slight lateral downsloping of the acromion. Visualized left lung grossly clear. Degenerative change visualized spine. SIGNED BY: Lucien Holden MD 11/20/2021 7:14 PM LETY
== END 2021-11-20 18:20 | disposition home or self-care (01) ==
LOC: JD.ED 16:25
DX: S40.012A Contusion of left shoulder, initial encounter (principal); E78.00 Pure hypercholesterolemia, unspecified; J44.9 Chronic obstructive pulmonary disease, unspecified; K21.9 Gastro-esophageal reflux disease without esophagitis; M19.90 Unspecified osteoarthritis, unspecified site; Z91.018 Allergy to other foods; W22.09XA Striking against other stationary object, initial encounter
CPT/HCPCS: 73030-26-LT; 73030-LT; 99283-25

== ENCOUNTER 2022-02-17 14:58 | Emergency (ER) | payer MEDICARE, MEDICAID | END 2022-02-17 16:35 | disposition home or self-care (01) | LOC: JD.ED 14:58 | DX: M25.512 Pain in left shoulder (principal); F11.23 Opioid dependence with withdrawal; E78.00 Pure hypercholesterolemia, unspecified; K21.9 Gastro-esophageal reflux disease without esophagitis; J44.9 Chronic obstructive pulmonary disease, unspecified; Z91.018 Allergy to other foods; Z79.899 Other long term (current) drug therapy | CPT/HCPCS: 99283 ==

== ENCOUNTER 2022-03-16 20:00 | Emergency (ER) | payer MEDICARE, MEDICAID ==
[2022-03-16] MEDS ORDERED: Acetaminophen/HYDROcodone 325-10 MG Tab PO ONE (23:02)
== END 2022-03-16 23:31 | disposition home or self-care (01) ==
LOC: JD.ED 20:00
DX: G89.29 Other chronic pain (principal); M25.512 Pain in left shoulder; E78.00 Pure hypercholesterolemia, unspecified; J44.9 Chronic obstructive pulmonary disease, unspecified; K21.9 Gastro-esophageal reflux disease without esophagitis; M19.90 Unspecified osteoarthritis, unspecified site; Z91.018 Allergy to other foods; Z79.899 Other long term (current) drug therapy
CPT/HCPCS: 99283; A9270

== ENCOUNTER 2022-04-17 16:09 | Emergency (ER) | payer MEDICARE, MEDICAID | END 2022-04-17 18:03 | disposition home or self-care (01) | LOC: JD.ED 16:09 | DX: M25.512 Pain in left shoulder (principal); E78.00 Pure hypercholesterolemia, unspecified; J44.9 Chronic obstructive pulmonary disease, unspecified; Z91.018 Allergy to other foods; Z79.899 Other long term (current) drug therapy | CPT/HCPCS: 73030-26-LT; 73030-LT; 99283-25 ==

== ENCOUNTER 2022-05-12 18:00 | Emergency (ER) | payer MEDICARE, MEDICAID | END 2022-05-12 19:15 | disposition home or self-care (01) | LOC: JD.ED 18:00 | DX: M25.512 Pain in left shoulder (principal); F11.90 Opioid use, unspecified, uncomplicated; E78.00 Pure hypercholesterolemia, unspecified; J44.9 Chronic obstructive pulmonary disease, unspecified; Z91.018 Allergy to other foods; Z79.899 Other long term (current) drug therapy | CPT/HCPCS: 99283; 99284 ==

== ENCOUNTER 2022-07-05 20:29 | Emergency (ER) | payer MEDICARE, MEDICAID | END 2022-07-05 22:28 | disposition home or self-care (01) | LOC: JD.ED 20:29 | DX: M25.512 Pain in left shoulder (principal) | CPT/HCPCS: 99283 ==

== ENCOUNTER 2022-07-16 17:00 | Emergency (ER) | payer MEDICARE, MEDICAID | END 2022-07-16 18:20 | disposition home or self-care (01) | LOC: JD.ED 17:00 | DX: S46.212A Strain of muscle, fascia and tendon of other parts of biceps, left arm, initial encounter (principal); J45.909 Unspecified asthma, uncomplicated; Z91.018 Allergy to other foods; Z79.899 Other long term (current) drug therapy; W23.1XXA Caught, crushed, jammed, or pinched between stationary objects, initial encounter | CPT/HCPCS: 99283; 99284 ==

== ENCOUNTER 2022-07-25 13:20 | Emergency (ER) | payer MEDICARE, MEDICAID | END 2022-07-25 15:45 | disposition left against medical advice (07) | LOC: JD.ED 13:20 | DX: G89.29 Other chronic pain (principal); F11.10 Opioid abuse, uncomplicated; J45.909 Unspecified asthma, uncomplicated; Z91.018 Allergy to other foods; Z79.899 Other long term (current) drug therapy | CPT/HCPCS: 99283 ==

== ENCOUNTER 2022-08-17 15:55 | Emergency (ER) | payer MEDICARE, MEDICAID | END 2022-08-17 20:44 | disposition home or self-care (01) | LOC: JD.ED 15:55 | DX: S29.012A Strain of muscle and tendon of back wall of thorax, initial encounter (principal); S49.92XA Unspecified injury of left shoulder and upper arm, initial encounter; J45.909 Unspecified asthma, uncomplicated; E78.00 Pure hypercholesterolemia, unspecified; Z91.018 Allergy to other foods; Z79.899 Other long term (current) drug therapy; W01.0XXA Fall on same level from slipping, tripping and stumbling without subsequent striking against object, initial encounter | CPT/HCPCS: 72072; 72072-26; 73030-26-LT; 73030-LT; 99283; 99284 ==

== ENCOUNTER 2022-08-21 14:25 | Emergency (ER) | payer MEDICARE, MEDICAID | END 2022-08-21 17:15 | disposition home or self-care (01) | LOC: JD.ED 14:25 | DX: F11.20 Opioid dependence, uncomplicated (principal); Z96.611 Presence of right artificial shoulder joint; W19.XXXA Unspecified fall, initial encounter | CPT/HCPCS: 99283 ==

== ENCOUNTER 2022-08-24 14:08 | Emergency (ER) | payer MEDICARE, MEDICAID | END 2022-08-24 17:19 | disposition home or self-care (01) | LOC: JD.ED 14:08 | DX: L03.012 Cellulitis of left finger (principal); M25.512 Pain in left shoulder; G89.29 Other chronic pain; J45.909 Unspecified asthma, uncomplicated; Z91.018 Allergy to other foods; Z79.899 Other long term (current) drug therapy | CPT/HCPCS: 99283 ==

== ENCOUNTER 2023-01-05 02:54 | Emergency (ER) | payer MEDICARE, MEDICAID ==
[2023-01-05] MEDS ORDERED: Sodium Chloride 0.9% 10 ML Syringe FLUSH PRN (03:13)
[2023-01-05] MEDS ORDERED: Albuterol/Ipratropium 3.0-0.5 MG/3 ML Neb Soln NEB ONE (03:14)
[2023-01-05 03:57] LABS: CORONAVIRUS COVID-19 NAA POSITIVE (NEGATIVE)
[2023-01-05] MEDS ORDERED: REMDESIVIR 200 MG in Sodium Chloride 0.9% 250 ML IV ONE (04:48)
[2023-01-05] MEDS ORDERED: Albuterol 6.7 GM Inhaler INH ONE (04:49)
== END 2023-01-05 06:35 | disposition home or self-care (01) ==
LOC: JD.ED 02:54
DX: U07.1 COVID-19 (principal); E78.00 Pure hypercholesterolemia, unspecified; I10 Essential (primary) hypertension; J44.9 Chronic obstructive pulmonary disease, unspecified; Z79.899 Other long term (current) drug therapy; Z91.018 Allergy to other foods; Z87.891 Personal history of nicotine dependence
CPT/HCPCS: 0241U; 36415; 71045; 80053; 83605; 85007; 85027; 85610; 86140; 87040; 93005; 94640; 96365; 99285; J0248; J7050; 93010; 99284; J7620-GY

== ENCOUNTER 2023-02-14 18:19 | Emergency (ER) | payer MEDICARE, MEDICAID ==
[2023-02-14] MEDS ORDERED: methylPREDNISolone Sodium Succinate 40 MG/1 ML SDV IVPUSH ONE (19:05)
[2023-02-14] MEDS ORDERED: Albuterol/Ipratropium 3.0-0.5 MG/3 ML Neb Soln NEB ONE ×2 (19:14→21:06)
[2023-02-14 20:41] LABS: ESTIMATED GFR 93 mL/min (>60)
[2023-02-14 20:57] LABS: CORONAVIRUS COVID-19 NAA NEGATIVE (NEGATIVE)
== END 2023-02-14 21:36 | disposition home or self-care (01) ==
LOC: JD.ED 18:19
DX: J44.1 Chronic obstructive pulmonary disease with (acute) exacerbation (principal); I10 Essential (primary) hypertension; M19.90 Unspecified osteoarthritis, unspecified site; Z86.16 Personal history of COVID-19; Z91.018 Allergy to other foods; Z79.899 Other long term (current) drug therapy; Z20.822 Contact with and (suspected) exposure to COVID-19
CPT/HCPCS: 0241U; 36415; 71045; 80053; 83880; 84484; 85025; 86140; 93005; 94640; 96374; 99285; J2920; J7620-GY

== ENCOUNTER 2023-02-17 12:33 | Emergency (ER) | payer MEDICARE, MEDICAID ==
[2023-02-17] MEDS ORDERED: Albuterol/Ipratropium 3.0-0.5 MG/3 ML Neb Soln ONE (12:45)
[2023-02-17] MEDS ORDERED: Sodium Chloride 0.9% 10 ML Syringe FLUSH PRN (12:46)
[2023-02-17] MEDS ORDERED: methylPREDNISolone Sodium Succinate 125 MG/2 ML SDV IVPUSH ONE (12:48)
[2023-02-17] MEDS ORDERED: Albuterol/Ipratropium 3.0-0.5 MG/3 ML Neb Soln NEB ONE ×2 (12:50→14:10)
[2023-02-17 14:07] LABS: CORONAVIRUS COVID-19 NAA POSITIVE (NEGATIVE)
[2023-02-17] MEDS ORDERED: REMDESIVIR 200 MG in Sodium Chloride 0.9% 250 ML IV ONE (15:23)
[2023-02-17] MEDS ORDERED: Albuterol 6.7 GM Inhaler INH ONE (16:31)
== END 2023-02-17 17:35 | disposition home or self-care (01) ==
LOC: JD.ED 12:33
DX: U07.1 COVID-19 (principal); I10 Essential (primary) hypertension; J44.9 Chronic obstructive pulmonary disease, unspecified; Z86.16 Personal history of COVID-19; Z91.018 Allergy to other foods; Z79.899 Other long term (current) drug therapy; Z20.822 Contact with and (suspected) exposure to COVID-19
CPT/HCPCS: 0241U; 36415; 71045; 80053; 83880; 84484; 85025; 85379; 86140; 93005; 94640; 99285; J0248; J2930; J3490; J7050; 93010; 99284; J7620-GY

== ENCOUNTER 2023-04-16 17:22 | Emergency (ER) | payer MEDICARE, MEDICAID ==
[2023-04-16] MEDS ORDERED: Amoxicillin/Clavulanate K 875-125 MG Tab PO ONE (19:32)
== END 2023-04-16 19:52 | disposition home or self-care (01) ==
LOC: JD.ED 17:22
DX: S61.451A Open bite of right hand, initial encounter (principal); J44.9 Chronic obstructive pulmonary disease, unspecified; I10 Essential (primary) hypertension; Z86.16 Personal history of COVID-19; Z91.018 Allergy to other foods; W54.0XXA Bitten by dog, initial encounter
CPT/HCPCS: 99283; A9270; 99282

== ENCOUNTER 2023-04-22 12:46 | Emergency (ER) | payer MEDICARE, MEDICAID | END 2023-04-22 13:08 | disposition left against medical advice (07) | LOC: JD.ED 12:46 | DX: Z53.21 Procedure and treatment not carried out due to patient leaving prior to being seen by health care provider (principal) ==

== ENCOUNTER 2023-05-16 21:18 | Emergency (ER) | payer MEDICARE, MEDICAID | END 2023-05-17 01:00 | disposition home or self-care (01) | LOC: JD.ED 21:18 | DX: R05.9 Cough, unspecified (principal); R53.81 Other malaise; J44.9 Chronic obstructive pulmonary disease, unspecified; Z86.16 Personal history of COVID-19; Z91.018 Allergy to other foods; Z79.899 Other long term (current) drug therapy; Z20.822 Contact with and (suspected) exposure to COVID-19 | CPT/HCPCS: 99283; U0002; 99282 ==

== ENCOUNTER 2023-08-11 19:41 | Emergency (ER) | payer MEDICARE, MEDICAID ==
[2023-08-11] MEDS ORDERED: Albuterol/Ipratropium 3.0-0.5 MG/3 ML Neb Soln NEB ONE ×2 (20:30→21:29)
[2023-08-11] MEDS ORDERED: predniSONE 20 MG Tab PO ONE (21:23)
[2023-08-11] MEDS ORDERED: Albuterol 6.7 GM Inhaler INH ONE (21:23)
== END 2023-08-11 22:47 | disposition home or self-care (01) ==
LOC: JD.ED 19:41
DX: J44.1 Chronic obstructive pulmonary disease with (acute) exacerbation (principal); Z86.16 Personal history of COVID-19; Z91.018 Allergy to other foods; Z79.899 Other long term (current) drug therapy
CPT/HCPCS: 71046; 94640; 99285; A9270; J7512; 99284; J7620-GY

== ENCOUNTER 2023-11-02 08:13 | Emergency (ER) | payer MEDICARE, MEDICAID ==
[2023-11-02] MEDS ORDERED: Acetaminophen 325 MG Tab PO ONE (08:55)
[2023-11-02] MEDS ORDERED: Dextrose 5%-0.9% NaCl 1,000 ML IV SCH (09:00)
[2023-11-02] MEDS ORDERED: Albuterol/Ipratropium 3.0-0.5 MG/3 ML Neb Soln NEB ONE (09:04)
[2023-11-02] MEDS ORDERED: Iopamidol 612 MG/ML 100 ML Bottle IVPUSH ONE (09:22)
[2023-11-02 09:43] LABS: BASOPHILS ABSOLUTE AUTO 0.1 K/mm3 (0.0-0.2); EOSINOPHILS ABSOLUTE AUTO 0.2 K/mm3 (0.0-0.4); HEMATOCRIT 43.4 % (42.0-52.0); HEMOGLOBIN 14.2 gm/dl (14.0-18.0); IMMATURE GRAN PERCENT AUTO 3.7 % (0.0-0.4); LYMPHOCYTES ABSOLUTE AUTO 2.2 K/mm3 (1.0-4.8); LYMPHOCYTES PERCENT AUTO 27.3 % (24.0-44.0); MEAN CORPUSCULAR HEMOGLOBIN 29.9 pg (28.0-32.0); MEAN CORPUSCULAR HGB CONC 32.7 g/dl (32.0-36.0); MEAN CORPUSCULAR VOLUME 91.4 fl (83.0-99.0); MEAN PLATELET VOLUME 9.9 fl (9.4-12.4); MONOCYTES ABSOLUTE AUTO 0.9 K/mm3 (0.0-0.8); MONOCYTES PERCENT AUTO 11.1 % (0.0-8.0); NEUTROPHILS ABSOLUTE AUTO 4.4 K/mm3 (1.8-7.7); NEUTROPHILS PERCENT AUTO 53.9 % (41.0-71.0); PLATELET COUNT,PLT 264 K/mm3 (150-400); RED BLOOD CELL COUNT 4.75 M/mm3 (4.52-5.90); WHITE BLOOD CELL COUNT,WBC 8.09 K/mm3 (3.9-11.3)
[2023-11-02 09:53] LABS: INR 1.01; PROTHROMBIN TIME 10.8 SECONDS (9.7-12.0)
[2023-11-02 09:54] LABS: A/G RATIO 0.8 (1-2); ALBUMIN 3.2 g/dl (3.4-5.0); ANION GAP 9.9 (5-15); BILIRUBIN TOTAL 0.4 mg/dL (0.2-1.0); BUN/CREATININE RATIO 22.2 (14-18); C-REACTIVE PROTEIN 0.3 mg/dL (<1.0); CALCIUM 8.8 mg/dL (8.5-10.1); CREATININE 0.9 mg/dL (0.7-1.3); EST CRCL DRUG DOSING (CG) 72.01 mL/min; MAGNESIUM 1.9 mg/dL (1.8-2.4); POTASSIUM,K 3.9 mEq/L (3.5-5.1); PTT,PARTIAL THROMBOPLSTIN TIME 26.3 SECONDS (21.7-31.4)
[2023-11-02 11:19] LABS: APPEARANCE,URINE CLEAR (Clear); BILIRUBIN,URINE NEGATIVE (Negative); COLOR,URINE YELLOW (Yellow); GLUCOSE,URINE NEGATIVE (Negative); KETONES,URINE NEGATIVE (Negative); LEUKOCYTE ESTERASE,URINE NEGATIVE (Negative); NITRITE,URINE NEGATIVE (Negative); OCCULT BLOOD,URINE NEGATIVE (Negative); PH,URINE 6.5 (5.0-8.0); PROTEIN,URINE NEGATIVE (Negative); UROBILINOGEN,URINE 0.2 (0.2-1.0)
[2023-11-02 11:34] LABS: BACTERIA,URINE RARE /hpf (FEW); MUCUS,URINE NOT SEEN /hpf (FEW); RBC,URINE 0-5 /hpf (0-5); SQUAMOUS EPITHELIAL CELLS,UR 0-5 /hpf (0-5); WBC,URINE 0-5 /hpf (0-5)
[2023-11-02] MEDS ORDERED: cefTRIAXone 2 GM in Sodium Chloride 0.9% 100 ML IV ONE (12:20)
== END 2023-11-02 14:05 | disposition home or self-care (01) ==
LOC: JD.ED 08:13
DX: R06.02 Shortness of breath (principal); K11.1 Hypertrophy of salivary gland; E78.00 Pure hypercholesterolemia, unspecified; J44.9 Chronic obstructive pulmonary disease, unspecified; Z86.16 Personal history of COVID-19; Z79.899 Other long term (current) drug therapy; Z91.018 Allergy to other foods
CPT/HCPCS: 36415; 70491; 71045; 80053; 81001; 83735; 83880; 84484; 85025; 85379; 85610; 85730; 86140; 87040; 93005; 94640; 96361; 96365; 99285; A9270; J0696; J3490; J7042; Q9967; J7620-GY

== ENCOUNTER 2023-11-04 11:56 | Emergency (ER) | payer MEDICARE, MEDICAID ==
[2023-11-04] MEDS ORDERED: Ondansetron 4 MG/2 ML SDV IVPUSH ONE (12:53)
[2023-11-04] MEDS ORDERED: Sodium Chloride 0.9% 10 ML Syringe FLUSH PRN (12:53)
[2023-11-04] MEDS ORDERED: Sodium Chloride 0.9% 1,000 ML IV STA (12:53)
[2023-11-04] MEDS ORDERED: Loperamide 2 MG Cap PO ONE (12:54)
[2023-11-04 14:18] LABS: BASOPHILS ABSOLUTE AUTO 0.1 K/mm3 (0.0-0.2); BASOPHILS PERCENT AUTO 0.6 % (0.0-1.0); EOSINOPHILS PERCENT AUTO 0.1 % (0.0-6.0); HEMATOCRIT 50.8 % (42.0-52.0); IMMATURE GRAN ABSOLUTE AUTO 0.28 K/mm3 (0.00-0.05); IMMATURE GRAN PERCENT AUTO 2.5 % (0.0-0.4); LYMPHOCYTES PERCENT AUTO 9.2 % (24.0-44.0); MEAN CORPUSCULAR HGB CONC 33.5 g/dl (32.0-36.0); MEAN PLATELET VOLUME 9.1 fl (9.4-12.4); MONOCYTES ABSOLUTE AUTO 0.7 K/mm3 (0.0-0.8); MONOCYTES PERCENT AUTO 6.3 % (0.0-8.0); NEUTROPHILS ABSOLUTE AUTO 9.2 K/mm3 (1.8-7.7); NEUTROPHILS PERCENT AUTO 81.3 % (41.0-71.0); PLATELET COUNT,PLT 293 K/mm3 (150-400); RED BLOOD CELL COUNT 5.87 M/mm3 (4.52-5.90); WHITE BLOOD CELL COUNT,WBC 11.34 K/mm3 (3.9-11.3)
[2023-11-04 14:36] LABS: MEAN CORPUSCULAR VOLUME 86.5 fl (83.0-99.0)
[2023-11-04 14:44] LABS: A/G RATIO 0.8 (1-2); ALBUMIN 3.6 g/dl (3.4-5.0); ANION GAP 16.4 (5-15); BILIRUBIN TOTAL 1.1 mg/dL (0.2-1.0); CALCIUM 9.6 mg/dL (8.5-10.1); CREATININE 0.8 mg/dL (0.7-1.3); EST CRCL DRUG DOSING (CG) 81.01 mL/min; POTASSIUM,K 4.4 mEq/L (3.5-5.1); PROTEIN TOTAL,TP 8.4 g/dl (6.4-8.2)
[2023-11-04] MEDS ORDERED: Sodium Chloride 0.9% 1,000 ML IV ONE (15:58)
[2023-11-04] MEDS ORDERED: Diltiazem 25 MG/5 ML SDV IVPUSH ONE (15:59)
[2023-11-04 17:08] LABS: TSH 0.364 uIU/mL (0.358-3.74)
== END 2023-11-04 18:15 | disposition home or self-care (01) ==
LOC: JD.ED 11:56
DX: A08.4 Viral intestinal infection, unspecified (principal); J44.9 Chronic obstructive pulmonary disease, unspecified; K21.9 Gastro-esophageal reflux disease without esophagitis; Z79.899 Other long term (current) drug therapy; Z91.018 Allergy to other foods; Z86.16 Personal history of COVID-19
CPT/HCPCS: 36415; 74018; 80053; 83690; 84443; 84484; 85025; 96361; 96374; 96375; 99284; A9270; J2405; J3490; J7030; 93010

== ENCOUNTER 2023-11-05 23:06 | Emergency (ER) | payer MEDICARE, MEDICAID ==
[2023-11-05] MEDS ORDERED: Aspirin 81 MG Tab.Chew PO ONE ×2 (23:34→23:38)
[2023-11-05] MEDS ORDERED: Sodium Chloride 0.9% 10 ML Syringe FLUSH PRN (23:38)
[2023-11-06 00:03] LABS: BASOPHILS PERCENT AUTO 0.3 % (0.0-1.0); EOSINOPHILS PERCENT AUTO 0.3 % (0.0-6.0); HEMATOCRIT 49.2 % (42.0-52.0); HEMOGLOBIN 16.3 gm/dl (14.0-18.0); IMMATURE GRAN ABSOLUTE AUTO 0.23 K/mm3 (0.00-0.05); IMMATURE GRAN PERCENT AUTO 1.6 % (0.0-0.4); LYMPHOCYTES ABSOLUTE AUTO 1.8 K/mm3 (1.0-4.8); LYMPHOCYTES PERCENT AUTO 11.9 % (24.0-44.0); MEAN CORPUSCULAR HEMOGLOBIN 29.5 pg (28.0-32.0); MEAN CORPUSCULAR HGB CONC 33.1 g/dl (32.0-36.0); MEAN CORPUSCULAR VOLUME 89.1 fl (83.0-99.0); MEAN PLATELET VOLUME 9.3 fl (9.4-12.4); MONOCYTES ABSOLUTE AUTO 1.4 K/mm3 (0.0-0.8); MONOCYTES PERCENT AUTO 9.8 % (0.0-8.0); NEUTROPHILS ABSOLUTE AUTO 11.2 K/mm3 (1.8-7.7); NEUTROPHILS PERCENT AUTO 76.1 % (41.0-71.0); PLATELET COUNT,PLT 281 K/mm3 (150-400); RED BLOOD CELL COUNT 5.52 M/mm3 (4.52-5.90); WHITE BLOOD CELL COUNT,WBC 14.67 K/mm3 (3.9-11.3)
[2023-11-06 00:21] LABS: INR 1.06; PROTHROMBIN TIME 11.3 SECONDS (9.7-12.0)
[2023-11-06 00:33] LABS: D-DIMER QUANTITATIVE 1.79 mg/L (0.19-0.50)
[2023-11-06 00:40] LABS: A/G RATIO 0.7 (1-2); ALBUMIN 3.1 g/dl (3.4-5.0); ANION GAP 14.1 (5-15); BILIRUBIN TOTAL 1.1 mg/dL (0.2-1.0); BUN/CREATININE RATIO 17.8 (14-18); CALCIUM 9.1 mg/dL (8.5-10.1); CREATININE 0.9 mg/dL (0.7-1.3); EST CRCL DRUG DOSING (CG) 72.01 mL/min; POTASSIUM,K 4.1 mEq/L (3.5-5.1); PROTEIN TOTAL,TP 7.6 g/dl (6.4-8.2)
[2023-11-06] MEDS ORDERED: Lidocaine 2% Viscous Solution 15 ML UD ONE (03:23)
[2023-11-06] MEDS ORDERED: Sodium Chloride 0.9% 10 ML Syringe FLUSH ONE (05:29)
[2023-11-06] MEDS ORDERED: Iopamidol 755 Mg/ML 100 ML Bottle IVPUSH ONE (05:29)
[2023-11-06] MEDS ORDERED: Sodium Chloride 0.9% 100 ML IV SCH (05:30)
== END 2023-11-06 04:18 | disposition home or self-care (01) ==
LOC: JD.ED 23:06
DX: R10.13 Epigastric pain (principal); R94.6 Abnormal results of thyroid function studies; R11.0 Nausea; E78.00 Pure hypercholesterolemia, unspecified; J44.9 Chronic obstructive pulmonary disease, unspecified; Z86.16 Personal history of COVID-19; Z79.899 Other long term (current) drug therapy; Z91.018 Allergy to other foods
CPT/HCPCS: 36415; 71045; 71275; 80053; 83735; 83880; 84484; 85025; 85379; 85610; 93005; 99284; A9270; J3490; Q9967; 93010

== ENCOUNTER 2023-11-07 17:14 | Emergency (ER) | payer MEDICARE, MEDICAID ==
[2023-11-07] MEDS ORDERED: Sodium Chloride 0.9% 10 ML Syringe FLUSH PRN (18:18)
[2023-11-07] MEDS ORDERED: Iopamidol 612 MG/ML 100 ML Bottle IVPUSH ONE (18:56)
[2023-11-07] MEDS ORDERED: Sodium Chloride 0.9% 10 ML Syringe FLUSH ONE (18:56)
[2023-11-07 19:32] LABS: BASOPHILS ABSOLUTE AUTO 0.1 K/mm3 (0.0-0.2); BASOPHILS PERCENT AUTO 0.5 % (0.0-1.0); EOSINOPHILS PERCENT AUTO 0.1 % (0.0-6.0); HEMATOCRIT 51.2 % (42.0-52.0); IMMATURE GRAN ABSOLUTE AUTO 0.25 K/mm3 (0.00-0.05); IMMATURE GRAN PERCENT AUTO 1.6 % (0.0-0.4); LYMPHOCYTES ABSOLUTE AUTO 1.9 K/mm3 (1.0-4.8); LYMPHOCYTES PERCENT AUTO 12.4 % (24.0-44.0); MEAN CORPUSCULAR HEMOGLOBIN 29.1 pg (28.0-32.0); MEAN CORPUSCULAR HGB CONC 33.2 g/dl (32.0-36.0); MEAN CORPUSCULAR VOLUME 87.5 fl (83.0-99.0); MEAN PLATELET VOLUME 9.4 fl (9.4-12.4); MONOCYTES ABSOLUTE AUTO 1.5 K/mm3 (0.0-0.8); MONOCYTES PERCENT AUTO 9.4 % (0.0-8.0); NEUTROPHILS ABSOLUTE AUTO 11.9 K/mm3 (1.8-7.7); PLATELET COUNT,PLT 348 K/mm3 (150-400); RED BLOOD CELL COUNT 5.85 M/mm3 (4.52-5.90); WHITE BLOOD CELL COUNT,WBC 15.68 K/mm3 (3.9-11.3)
[2023-11-07] MEDS ORDERED: Sucralfate Suspension 1 GM/10 ML Cup PO STA (19:54)
[2023-11-07 19:57] LABS: CORONAVIRUS COVID-19 NAA NEGATIVE (NEGATIVE); INFLUENZA A NAA NEGATIVE (NEGATIVE); RESPIRATORY SYNCYTIAL VIR NAA NEGATIVE (NEGATIVE)
[2023-11-07 19:58] LABS: A/G RATIO 0.7 (1-2); ALBUMIN 3.2 g/dl (3.4-5.0); ANION GAP 15.1 (5-15); BILIRUBIN TOTAL 1.2 mg/dL (0.2-1.0); C-REACTIVE PROTEIN 2.3 mg/dL (<1.0); CALCIUM 9.1 mg/dL (8.5-10.1); EST CRCL DRUG DOSING (CG) 60.59 mL/min; POTASSIUM,K 4.1 mEq/L (3.5-5.1)
[2023-11-07] MEDS ORDERED: Sodium Chloride 0.9% 1,000 ML IV SCH (20:00)
[2023-11-07 22:10] LABS: APPEARANCE,URINE CLEAR (Clear); BILIRUBIN,URINE 1+ (Negative); COLOR,URINE ORANGE (Yellow); GLUCOSE,URINE NEGATIVE (Negative); KETONES,URINE 2+ (Negative); LEUKOCYTE ESTERASE,URINE NEGATIVE (Negative); NITRITE,URINE NEGATIVE (Negative); OCCULT BLOOD,URINE TRACE-INTACT (Negative); PROTEIN,URINE NEGATIVE (Negative); UROBILINOGEN,URINE 0.2 (0.2-1.0)
[2023-11-07 22:23] LABS: RBC,URINE 0-5 /hpf (0-5); SQUAMOUS EPITHELIAL CELLS,UR 0-5 /hpf (0-5); WBC,URINE 0-5 /hpf (0-5)
[2023-11-07 22:24] LABS: BACTERIA,URINE FEW /hpf (FEW); HYALINE CASTS,URINE 0-5 /lpf (0-5); MUCUS,URINE MODERATE /hpf (FEW)
[2023-11-07] MEDS ORDERED: Alum Hydrox/Mag Hydrox/Simeth 30 ML, Lidocaine 2% 15 ML PO ONE ×2 (22:44)
[2023-11-07] MEDS ORDERED: Dicyclomine 10 MG Cap PO ONE (22:45)
[2023-11-08] MEDS ORDERED: Aluminum Hydroxide/Magnesium Hydroxide/Simethicone Susp 30 ML Cup PO ONE (04:37)
[2023-11-08] MEDS ORDERED: Dicyclomine 10 MG Cap PO ONE (04:37)
[2023-11-08] MEDS ORDERED: Alum Hydrox/Mag Hydrox/Simeth 30 ML, Lidocaine 2% 15 ML PO ONE ×2 (07:22)
== END 2023-11-08 08:38 | disposition home or self-care (01) ==
LOC: JD.ED 17:14
DX: K29.80 Duodenitis without bleeding (principal); E78.00 Pure hypercholesterolemia, unspecified; J44.9 Chronic obstructive pulmonary disease, unspecified; Z86.16 Personal history of COVID-19; Z79.899 Other long term (current) drug therapy; Z91.018 Allergy to other foods
CPT/HCPCS: 0241U; 36415; 74177; 80053; 81001; 83690; 84484; 85025; 86140; 93005; 96360; 96361; 99284; A9270; J3490; J7030; Q9967

== ENCOUNTER 2023-11-17 18:51 | Emergency (ER) | payer MEDICARE, MEDICAID ==
[2023-11-17] MEDS ORDERED: Alum Hydrox/Mag Hydrox/Simeth 30 ML, Lidocaine 2% 15 ML PO ONE ×2 (20:00)
== END 2023-11-17 20:25 | disposition home or self-care (01) ==
LOC: JD.ED 18:51
DX: Z76.0 Encounter for issue of repeat prescription (principal); J44.9 Chronic obstructive pulmonary disease, unspecified; Z86.16 Personal history of COVID-19; Z91.018 Allergy to other foods; Z79.899 Other long term (current) drug therapy
CPT/HCPCS: 99281; A9270; 99282

== ENCOUNTER 2023-12-22 06:15 | Emergency (ER) | payer MEDICARE, MEDICAID ==
[2023-12-22] MEDS ORDERED: Acetaminophen 325 MG Tab PO PRN (07:07)
[2023-12-22 07:23] LABS: CORONAVIRUS COVID-19 NAA NEGATIVE (NEGATIVE); INFLUENZA A NAA NEGATIVE (NEGATIVE); RESPIRATORY SYNCYTIAL VIR NAA POSITIVE (NEGATIVE)
[2023-12-22] MEDS: Albuterol/Ipratropium 3.0-0.5 MG/3 ML Neb Soln NEB PRN (07:34)
[2023-12-22] MEDS: Dextrose 5%-0.9% NaCl 1,000 ML IV SCH (07:37)
[2023-12-22] MEDS: HYDROmorphone 0.5 MG/0.5 ML Syringe IVPUSH ONE (07:37)
[2023-12-22] MEDS: Metoclopramide 10 MG/2 ML SDV IVPUSH ONE (07:37)
[2023-12-22 08:21] LABS: BASOPHILS ABSOLUTE AUTO 0.1 K/mm3 (0.0-0.2); EOSINOPHILS ABSOLUTE AUTO 0.2 K/mm3 (0.0-0.4); EOSINOPHILS PERCENT AUTO 3.5 % (0.0-6.0); HEMATOCRIT 40.1 % (42.0-52.0); HEMOGLOBIN 13.1 gm/dl (14.0-18.0); IMMATURE GRAN ABSOLUTE AUTO 0.03 K/mm3 (0.00-0.05); IMMATURE GRAN PERCENT AUTO 0.5 % (0.0-0.4); LYMPHOCYTES ABSOLUTE AUTO 1.5 K/mm3 (1.0-4.8); LYMPHOCYTES PERCENT AUTO 23.5 % (24.0-44.0); MEAN CORPUSCULAR HEMOGLOBIN 29.1 pg (28.0-32.0); MEAN CORPUSCULAR HGB CONC 32.7 g/dl (32.0-36.0); MEAN CORPUSCULAR VOLUME 89.1 fl (83.0-99.0); MEAN PLATELET VOLUME 9.4 fl (9.4-12.4); MONOCYTES ABSOLUTE AUTO 0.9 K/mm3 (0.0-0.8); MONOCYTES PERCENT AUTO 13.8 % (0.0-8.0); NEUTROPHILS ABSOLUTE AUTO 3.6 K/mm3 (1.8-7.7); NEUTROPHILS PERCENT AUTO 57.7 % (41.0-71.0); PLATELET COUNT,PLT 250 K/mm3 (150-400)
[2023-12-22 08:47] LABS: A/G RATIO 0.9 (1-2); ALBUMIN 3.4 g/dl (3.4-5.0); ANION GAP 11.7 (5-15); BILIRUBIN TOTAL 0.5 mg/dL (0.2-1.0); BUN/CREATININE RATIO 21.1 (14-18); C-REACTIVE PROTEIN 0.5 mg/dL (<1.0); CALCIUM 8.5 mg/dL (8.5-10.1); CREATININE 0.9 mg/dL (0.7-1.3); EST CRCL DRUG DOSING (CG) 72.01 mL/min; MAGNESIUM 1.7 mg/dL (1.8-2.4); POTASSIUM,K 3.7 mEq/L (3.5-5.1); PROTEIN TOTAL,TP 7.2 g/dl (6.4-8.2)
[2023-12-22] MEDS: methylPREDNISolone Sodium Succinate 125 MG/2 ML SDV IVPUSH ONE (10:27)
== END 2023-12-22 10:38 | disposition home or self-care (01) ==
LOC: JD.ED 06:15
DX: J45.909 Unspecified asthma, uncomplicated (principal); B97.4 Respiratory syncytial virus as the cause of diseases classified elsewhere; M75.42 Impingement syndrome of left shoulder; I25.2 Old myocardial infarction; Z86.16 Personal history of COVID-19; Z79.899 Other long term (current) drug therapy; Z91.018 Allergy to other foods
CPT/HCPCS: 0241U; 36415; 71045; 80053; 83605; 83735; 83880; 84484; 85025; 86140; 87040; 93005; 94640; 96361; 96374; 96375; 99285; J1170; J2765; J2930; J7042; 93010; 99284; J7620-GY

== ENCOUNTER 2023-12-24 08:18 | Emergency (ER) | payer MEDICARE, MEDICAID ==
[2023-12-24] MEDS ORDERED: Albuterol/Ipratropium 3.0-0.5 MG/3 ML Neb Soln NEB SCH (08:45)
[2023-12-24] MEDS: Albuterol/Ipratropium 3.0-0.5 MG/3 ML Neb Soln NEB SCH (08:45)
[2023-12-24] MEDS ORDERED: Magnesium Sulfate/Water 2 GM/50 ML BAG IV ONE (09:21)
[2023-12-24] MEDS: Magnesium Sulfate/Water 50 ML ONE (09:37)
[2023-12-24] MEDS: Magnesium Sulfate/Water 2 GM in Premix Bag 1 BAG IV ONE (09:37)
[2023-12-24] MEDS ORDERED: Magnesium Sulfate/Water 2 GM in Premix Bag 1 BAG IV ONE (09:45)
== END 2023-12-24 11:04 | disposition left against medical advice (07) ==
LOC: JD.ED 08:18
DX: J44.1 Chronic obstructive pulmonary disease with (acute) exacerbation (principal); Z87.09 Personal history of other diseases of the respiratory system; Z91.018 Allergy to other foods; Z79.899 Other long term (current) drug therapy; Z86.16 Personal history of COVID-19
CPT/HCPCS: 93005; 94640; 96365; 99284; J3475; J7620-GY

== ENCOUNTER 2024-03-23 21:07 | Emergency (ER) | payer MEDICARE, MEDICAID | END 2024-03-23 22:48 | disposition home or self-care (01) | LOC: JD.ED 21:07 | DX: M16.0 Bilateral primary osteoarthritis of hip (principal); J44.9 Chronic obstructive pulmonary disease, unspecified; Z86.16 Personal history of COVID-19; Z79.899 Other long term (current) drug therapy; Z91.018 Allergy to other foods; W07.XXXA Fall from chair, initial encounter | CPT/HCPCS: 73502-26-RT; 73502-RT; 99283 ==

== ENCOUNTER 2024-04-04 12:44 | Emergency (ER) | payer MEDICARE, MEDICAID ==
[2024-04-04 14:11] LABS: BASOPHILS ABSOLUTE AUTO 0.1 K/mm3 (0.0-0.2); BASOPHILS PERCENT AUTO 0.9 % (0.0-1.0); EOSINOPHILS ABSOLUTE AUTO 0.2 K/mm3 (0.0-0.4); EOSINOPHILS PERCENT AUTO 2.9 % (0.0-6.0); IMMATURE GRAN ABSOLUTE AUTO 0.04 K/mm3 (0.00-0.05); IMMATURE GRAN PERCENT AUTO 0.7 % (0.0-0.4); LYMPHOCYTES ABSOLUTE AUTO 1.7 K/mm3 (1.0-4.8); MEAN CORPUSCULAR HEMOGLOBIN 28.5 pg (28.0-32.0); MEAN CORPUSCULAR HGB CONC 32.9 g/dl (32.0-36.0); MEAN PLATELET VOLUME 9.9 fl (9.4-12.4); MONOCYTES ABSOLUTE AUTO 0.6 K/mm3 (0.0-0.8); MONOCYTES PERCENT AUTO 11.5 % (0.0-8.0); PLATELET COUNT,PLT 277 K/mm3 (150-400); RED BLOOD CELL COUNT 4.73 M/mm3 (4.52-5.90); WHITE BLOOD CELL COUNT,WBC 5.57 K/mm3 (3.9-11.3)
[2024-04-04 14:17] LABS: HEMOGLOBIN 13.5 gm/dl (14.0-18.0); MEAN CORPUSCULAR VOLUME 86.7 fl (83.0-99.0)
[2024-04-04 14:32] LABS: ALBUMIN 3.6 g/dl (3.4-5.0); ANION GAP 8.4 (5-15); BILIRUBIN TOTAL 0.5 mg/dL (0.2-1.0); BUN/CREATININE RATIO 21.3 (14-18); C-REACTIVE PROTEIN 0.51 mg/dL (<0.30); CALCIUM 9.1 mg/dL (8.5-10.1); CREATININE 0.8 mg/dL (0.7-1.3); EST CRCL DRUG DOSING (CG) 79.78 mL/min; POTASSIUM,K 4.4 mEq/L (3.5-5.1); PROTEIN TOTAL,TP 7.4 g/dl (6.4-8.2)
[2024-04-04 14:39] LABS: LACTIC ACID 0.7 mmol/L (0.4-2.0)
[2024-04-04] MEDS: Albuterol 6.7 GM Inhaler INH ONE (14:43)
== END 2024-04-04 16:03 | disposition home or self-care (01) ==
LOC: JD.ED 12:44
DX: R06.02 Shortness of breath (principal); J44.9 Chronic obstructive pulmonary disease, unspecified; E78.00 Pure hypercholesterolemia, unspecified; Z91.018 Allergy to other foods; Z79.899 Other long term (current) drug therapy; Z86.16 Personal history of COVID-19
CPT/HCPCS: 36415; 71045; 80053; 83605; 85025; 86140; 94640; 99285; A9270; 99284

== ENCOUNTER 2024-05-17 22:05 | Emergency (ER) | payer MEDICARE, MEDICAID ==
[2024-05-17 23:47] LABS: BASOPHILS ABSOLUTE AUTO 0.1 K/mm3 (0.0-0.2); BASOPHILS PERCENT AUTO 0.9 % (0.0-1.0); EOSINOPHILS ABSOLUTE AUTO 0.3 K/mm3 (0.0-0.4); EOSINOPHILS PERCENT AUTO 5.8 % (0.0-6.0); HEMATOCRIT 39.1 % (42.0-52.0); HEMOGLOBIN 12.5 gm/dl (14.0-18.0); IMMATURE GRAN ABSOLUTE AUTO 0.03 K/mm3 (0.00-0.05); IMMATURE GRAN PERCENT AUTO 0.5 % (0.0-0.4); LYMPHOCYTES ABSOLUTE AUTO 1.6 K/mm3 (1.0-4.8); LYMPHOCYTES PERCENT AUTO 28.5 % (24.0-44.0); MEAN CORPUSCULAR HEMOGLOBIN 28.3 pg (28.0-32.0); MEAN CORPUSCULAR VOLUME 88.5 fl (83.0-99.0); MEAN PLATELET VOLUME 9.9 fl (9.4-12.4); MONOCYTES ABSOLUTE AUTO 0.8 K/mm3 (0.0-0.8); MONOCYTES PERCENT AUTO 13.5 % (0.0-8.0); NEUTROPHILS ABSOLUTE AUTO 2.9 K/mm3 (1.8-7.7); NEUTROPHILS PERCENT AUTO 50.8 % (41.0-71.0); PLATELET COUNT,PLT 243 K/mm3 (150-400); RED BLOOD CELL COUNT 4.42 M/mm3 (4.52-5.90); WHITE BLOOD CELL COUNT,WBC 5.72 K/mm3 (3.9-11.3)
[2024-05-17] MEDS: Famotidine 20 MG/2 ML SDV IVPUSH ONE (23:50)
[2024-05-17] MEDS: methylPREDNISolone Sodium Succinate 125 MG/2 ML SDV IVPUSH ONE (23:50)
[2024-05-18 00:13] LABS: A/G RATIO 0.9 (1-2); ALBUMIN 3.2 g/dl (3.4-5.0); ANION GAP 8.8 (5-15); BILIRUBIN TOTAL 0.3 mg/dL (0.2-1.0); BUN/CREATININE RATIO 16.7 (14-18); CALCIUM 8.7 mg/dL (8.5-10.1); CREATININE 0.9 mg/dL (0.7-1.3); EST CRCL DRUG DOSING (CG) 70.92 mL/min; POTASSIUM,K 3.8 mEq/L (3.5-5.1); PROTEIN TOTAL,TP 6.9 g/dl (6.4-8.2)
[2024-05-18] MEDS: Albuterol/Ipratropium 3.0-0.5 MG/3 ML Neb Soln NEB ONE (00:37)
[2024-05-18] MEDS: Albuterol 6.7 GM Inhaler INH ONE (01:01)
== END 2024-05-18 01:13 | disposition home or self-care (01) ==
LOC: JD.ED 22:05
DX: J44.9 Chronic obstructive pulmonary disease, unspecified (principal); E78.00 Pure hypercholesterolemia, unspecified; K21.9 Gastro-esophageal reflux disease without esophagitis; Z79.899 Other long term (current) drug therapy; Z91.018 Allergy to other foods
CPT/HCPCS: 36415; 71045; 80053; 84484; 85025; 93005; 94640; 96374; 96375; 99285; A9270; J2919; J3490; J7620-GY

== ENCOUNTER 2024-06-03 12:09 | Emergency (ER) | payer MEDICARE, MEDICAID ==
[2024-06-03] MEDS: Albuterol/Ipratropium 3.0-0.5 MG/3 ML Neb Soln NEB ONE (13:42)
[2024-06-03] MEDS: methylPREDNISolone Sodium Succinate 125 MG/2 ML SDV IVPUSH ONE (13:45)
[2024-06-03] MEDS: Sodium Chloride 0.9% 10 ML Syringe FLUSH PRN (13:45)
[2024-06-03 13:50] LABS: BASOPHILS PERCENT AUTO 0.5 % (0.0-1.0); EOSINOPHILS ABSOLUTE AUTO 0.2 K/mm3 (0.0-0.4); EOSINOPHILS PERCENT AUTO 3.7 % (0.0-6.0); HEMATOCRIT 42.3 % (42.0-52.0); HEMOGLOBIN 13.5 gm/dl (14.0-18.0); IMMATURE GRAN ABSOLUTE AUTO 0.06 K/mm3 (0.00-0.05); IMMATURE GRAN PERCENT AUTO 0.9 % (0.0-0.4); LYMPHOCYTES ABSOLUTE AUTO 1.5 K/mm3 (1.0-4.8); LYMPHOCYTES PERCENT AUTO 23.5 % (24.0-44.0); MEAN CORPUSCULAR HEMOGLOBIN 28.4 pg (28.0-32.0); MEAN CORPUSCULAR HGB CONC 31.9 g/dl (32.0-36.0); MEAN CORPUSCULAR VOLUME 89.1 fl (83.0-99.0); MEAN PLATELET VOLUME 9.8 fl (9.4-12.4); MONOCYTES ABSOLUTE AUTO 0.7 K/mm3 (0.0-0.8); MONOCYTES PERCENT AUTO 11.2 % (0.0-8.0); NEUTROPHILS ABSOLUTE AUTO 3.9 K/mm3 (1.8-7.7); NEUTROPHILS PERCENT AUTO 60.2 % (41.0-71.0); PLATELET COUNT,PLT 239 K/mm3 (150-400); RED BLOOD CELL COUNT 4.75 M/mm3 (4.52-5.90)
[2024-06-03 14:11] LABS: A/G RATIO 0.9 (1-2); ALBUMIN 3.5 g/dl (3.4-5.0); ANION GAP 12.6 (5-15); BILIRUBIN TOTAL 0.4 mg/dL (0.2-1.0); BUN/CREATININE RATIO 16.3 (14-18); CREATININE 0.8 mg/dL (0.7-1.3); EST CRCL DRUG DOSING (CG) 79.78 mL/min; POTASSIUM,K 4.6 mEq/L (3.5-5.1); PROTEIN TOTAL,TP 7.4 g/dl (6.4-8.2)
== END 2024-06-03 15:15 | disposition home or self-care (01) ==
LOC: JD.ED 12:09
DX: J44.1 Chronic obstructive pulmonary disease with (acute) exacerbation (principal); E78.00 Pure hypercholesterolemia, unspecified; J44.9 Chronic obstructive pulmonary disease, unspecified; Z86.16 Personal history of COVID-19; Z91.018 Allergy to other foods
CPT/HCPCS: 36415; 71046; 80053; 85025; 94640; 96374; 99285; J2919; J3490; J7620-GY

== ENCOUNTER 2024-07-10 06:30 | Emergency (ER) | payer MEDICARE, MEDICAID ==
[2024-07-10] MEDS: Morphine 2 MG/ML SYRINGE IVPUSH ONE (07:06)
[2024-07-10] MEDS: Sodium Chloride 0.9% 10 ML Syringe FLUSH PRN (07:07)
[2024-07-10 07:21] LABS: BASOPHILS PERCENT AUTO 0.3 % (0.0-1.0); EOSINOPHILS ABSOLUTE AUTO 0.1 K/mm3 (0.0-0.4); EOSINOPHILS PERCENT AUTO 1.9 % (0.0-6.0); HEMATOCRIT 39.9 % (42.0-52.0); HEMOGLOBIN 12.9 gm/dl (14.0-18.0); IMMATURE GRAN ABSOLUTE AUTO 0.04 K/mm3 (0.00-0.05); IMMATURE GRAN PERCENT AUTO 1.3 % (0.0-0.4); LYMPHOCYTES PERCENT AUTO 31.1 % (24.0-44.0); MEAN CORPUSCULAR HEMOGLOBIN 28.7 pg (28.0-32.0); MEAN CORPUSCULAR HGB CONC 32.3 g/dl (32.0-36.0); MEAN CORPUSCULAR VOLUME 88.7 fl (83.0-99.0); MEAN PLATELET VOLUME 10.2 fl (9.4-12.4); MONOCYTES ABSOLUTE AUTO 0.6 K/mm3 (0.0-0.8); MONOCYTES PERCENT AUTO 18.9 % (0.0-8.0); NEUTROPHILS ABSOLUTE AUTO 1.5 K/mm3 (1.8-7.7); NEUTROPHILS PERCENT AUTO 46.5 % (41.0-71.0); PLATELET COUNT,PLT 215 K/mm3 (150-400); WHITE BLOOD CELL COUNT,WBC 3.12 K/mm3 (3.9-11.3)
[2024-07-10 07:28] LABS: INR 1.05; PROTHROMBIN TIME 11.1 SECONDS (9.7-12.0)
[2024-07-10 07:33] LABS: A/G RATIO 0.9 (1-2); ALBUMIN 3.2 g/dl (3.4-5.0); BILIRUBIN TOTAL 0.3 mg/dL (0.2-1.0); BUN/CREATININE RATIO 18.9 (14-18); C-REACTIVE PROTEIN 0.25 mg/dL (<0.30); CALCIUM 8.7 mg/dL (8.5-10.1); CREATININE 0.9 mg/dL (0.7-1.3); EST CRCL DRUG DOSING (CG) 70.92 mL/min; MAGNESIUM 1.9 mg/dL (1.8-2.4); PROTEIN TOTAL,TP 6.7 g/dl (6.4-8.2)
[2024-07-10] MEDS: methylPREDNISolone Sodium Succinate 125 MG/2 ML SDV IVPUSH ONE (09:21)
== END 2024-07-10 10:10 | disposition home or self-care (01) ==
LOC: JD.ED 06:30
DX: M16.11 Unilateral primary osteoarthritis, right hip (principal); M46.1 Sacroiliitis, not elsewhere classified; J44.9 Chronic obstructive pulmonary disease, unspecified; Z86.16 Personal history of COVID-19; Z87.891 Personal history of nicotine dependence; Z91.018 Allergy to other foods
CPT/HCPCS: 36415; 73502; 80053; 83735; 85025; 85610; 86140; 96374; 96375; 99283; J2270; J2919; J3490

== ENCOUNTER 2024-07-25 19:03 | Emergency (ER) | payer MEDICARE, MEDICAID ==
[2024-07-25] MEDS: Ketorolac 30 MG/ML SDV IM ONE (20:49)
== END 2024-07-25 21:34 | disposition home or self-care (01) ==
LOC: JD.ED 19:03
DX: M48.061 Spinal stenosis, lumbar region without neurogenic claudication (principal); Z91.018 Allergy to other foods; Z86.16 Personal history of COVID-19
CPT/HCPCS: 73502; 96372; 99284; J1885

== ENCOUNTER 2024-08-13 04:25 | Emergency (ER) | payer MEDICARE, MEDICAID ==
[2024-08-13] MEDS: Metoclopramide 10 MG/2 ML SDV IVPUSH ONE (05:15)
[2024-08-13] MEDS: Sodium Chloride 0.9% 10 ML Syringe FLUSH PRN (05:16)
[2024-08-13] MEDS: HYDROmorphone 1 MG/ML Syringe IVPUSH ONE (05:16)
== END 2024-08-13 07:55 | disposition home or self-care (01) ==
LOC: JD.ED 04:25
DX: M54.41 Lumbago with sciatica, right side (principal); J44.9 Chronic obstructive pulmonary disease, unspecified; K21.9 Gastro-esophageal reflux disease without esophagitis; E78.00 Pure hypercholesterolemia, unspecified; Z79.899 Other long term (current) drug therapy; Z91.018 Allergy to other foods; Z86.16 Personal history of COVID-19
CPT/HCPCS: 96374; 96375; 99283; J1170; J2765; J3490

== ENCOUNTER 2024-08-29 07:24 | Emergency (ER) | payer MEDICARE, MEDICAID ==
[2024-08-29] MEDS ORDERED: Sodium Chloride 0.9% 10 ML Syringe FLUSH PRN (07:54)
[2024-08-29 08:13] LABS: BASOPHILS PERCENT AUTO 0.6 % (0.0-1.0); EOSINOPHILS ABSOLUTE AUTO 0.2 K/mm3 (0.0-0.4); EOSINOPHILS PERCENT AUTO 3.4 % (0.0-6.0); HEMATOCRIT 39.9 % (42.0-52.0); HEMOGLOBIN 13.1 gm/dl (14.0-18.0); IMMATURE GRAN ABSOLUTE AUTO 0.05 K/mm3 (0.00-0.05); IMMATURE GRAN PERCENT AUTO 0.7 % (0.0-0.4); LYMPHOCYTES ABSOLUTE AUTO 1.5 K/mm3 (1.0-4.8); LYMPHOCYTES PERCENT AUTO 22.8 % (24.0-44.0); MEAN CORPUSCULAR HEMOGLOBIN 28.9 pg (28.0-32.0); MEAN CORPUSCULAR HGB CONC 32.8 g/dl (32.0-36.0); MEAN CORPUSCULAR VOLUME 88.1 fl (83.0-99.0); MEAN PLATELET VOLUME 9.4 fl (9.4-12.4); MONOCYTES ABSOLUTE AUTO 0.8 K/mm3 (0.0-0.8); MONOCYTES PERCENT AUTO 11.5 % (0.0-8.0); NEUTROPHILS ABSOLUTE AUTO 4.1 K/mm3 (1.8-7.7); PLATELET COUNT,PLT 277 K/mm3 (150-400); RED BLOOD CELL COUNT 4.53 M/mm3 (4.52-5.90); WHITE BLOOD CELL COUNT,WBC 6.72 K/mm3 (3.9-11.3)
[2024-08-29] MEDS: fentaNYL 100 MCG/2 ML SDV IVPUSH ONE (08:17)
[2024-08-29] MEDS: Sodium Chloride 0.9% 500 ML IV ONE (08:18)
[2024-08-29 08:48] LABS: A/G RATIO 0.8 (1-2); ALBUMIN 3.2 g/dl (3.4-5.0); ANION GAP 10.5 (5-15); BILIRUBIN TOTAL 0.4 mg/dL (0.2-1.0); BUN/CREATININE RATIO 22.2 (14-18); CALCIUM 9.3 mg/dL (8.5-10.1); CREATININE 0.9 mg/dL (0.7-1.3); EST CRCL DRUG DOSING (CG) 70.92 mL/min; MAGNESIUM 2.1 mg/dL (1.8-2.4); POTASSIUM,K 4.5 mEq/L (3.5-5.1); PROTEIN TOTAL,TP 7.2 g/dl (6.4-8.2)
[2024-08-29] MEDS: Iopamidol 612 MG/ML 100 ML Bottle IVPUSH ONE (10:10)
[2024-08-29 11:36] LABS: APPEARANCE,URINE CLEAR (Clear); BILIRUBIN,URINE NEGATIVE (Negative); COLOR,URINE YELLOW (Yellow); GLUCOSE,URINE NEGATIVE (Negative); KETONES,URINE NEGATIVE (Negative); LEUKOCYTE ESTERASE,URINE NEGATIVE (Negative); NITRITE,URINE NEGATIVE (Negative); OCCULT BLOOD,URINE NEGATIVE (Negative); PROTEIN,URINE NEGATIVE (Negative); UROBILINOGEN,URINE 0.2 (0.2-1.0)
== END 2024-08-29 12:25 | disposition home or self-care (01) ==
LOC: JD.ED 07:24
DX: M54.6 Pain in thoracic spine (principal); M54.50 Low back pain, unspecified; L03.115 Cellulitis of right lower limb; J44.9 Chronic obstructive pulmonary disease, unspecified; Z86.16 Personal history of COVID-19; Z79.899 Other long term (current) drug therapy; Z91.018 Allergy to other foods
CPT/HCPCS: 36415; 71045; 74177; 80053; 81003; 83690; 83735; 83880; 85025; 93005; 93970; 96361; 96374; 99284; J3010; J7030; Q9967; 93010

== ENCOUNTER 2024-09-02 07:03 | Emergency (ER) | payer MEDICARE, MEDICAID | END 2024-09-02 07:45 | LOC: JD.ED 07:03 | DX: M54.50 Low back pain, unspecified (principal); J44.9 Chronic obstructive pulmonary disease, unspecified; Z86.16 Personal history of COVID-19; Z91.018 Allergy to other foods | CPT/HCPCS: 99283; 99284 ==

== ENCOUNTER 2024-09-11 23:04 | Emergency (ER) | payer MEDICARE, MEDICAID ==
[2024-09-11 23:58] LABS: BASOPHILS ABSOLUTE AUTO 0.1 K/mm3 (0.0-0.2); BASOPHILS PERCENT AUTO 0.9 % (0.0-1.0); EOSINOPHILS ABSOLUTE AUTO 0.3 K/mm3 (0.0-0.4); EOSINOPHILS PERCENT AUTO 5.1 % (0.0-6.0); HEMATOCRIT 39.1 % (42.0-52.0); HEMOGLOBIN 12.9 gm/dl (14.0-18.0); IMMATURE GRAN ABSOLUTE AUTO 0.05 K/mm3 (0.00-0.05); IMMATURE GRAN PERCENT AUTO 0.9 % (0.0-0.4); LYMPHOCYTES ABSOLUTE AUTO 1.6 K/mm3 (1.0-4.8); LYMPHOCYTES PERCENT AUTO 30.3 % (24.0-44.0); MEAN CORPUSCULAR HEMOGLOBIN 29.4 pg (28.0-32.0); MEAN CORPUSCULAR VOLUME 89.1 fl (83.0-99.0); MEAN PLATELET VOLUME 10.2 fl (9.4-12.4); MONOCYTES ABSOLUTE AUTO 0.9 K/mm3 (0.0-0.8); MONOCYTES PERCENT AUTO 16.1 % (0.0-8.0); NEUTROPHILS ABSOLUTE AUTO 2.5 K/mm3 (1.8-7.7); NEUTROPHILS PERCENT AUTO 46.7 % (41.0-71.0); PLATELET COUNT,PLT 245 K/mm3 (150-400); RED BLOOD CELL COUNT 4.39 M/mm3 (4.52-5.90); WHITE BLOOD CELL COUNT,WBC 5.34 K/mm3 (3.9-11.3)
[2024-09-12 00:20] LABS: A/G RATIO 0.9 (1-2); ALBUMIN 3.3 g/dl (3.4-5.0); ANION GAP 8.2 (5-15); BILIRUBIN TOTAL 0.4 mg/dL (0.2-1.0); BUN/CREATININE RATIO 28.6 (14-18); CALCIUM 8.8 mg/dL (8.5-10.1); CREATININE 0.7 mg/dL (0.7-1.3); EST CRCL DRUG DOSING (CG) 91.18 mL/min; POTASSIUM,K 4.2 mEq/L (3.5-5.1); PROTEIN TOTAL,TP 7.2 g/dl (6.4-8.2)
[2024-09-12 00:43] LABS: CORONAVIRUS COVID-19 NAA NEGATIVE (NEGATIVE); INFLUENZA A NAA NEGATIVE (NEGATIVE); RESPIRATORY SYNCYTIAL VIR NAA NEGATIVE (NEGATIVE)
[2024-09-12] MEDS ORDERED: Cephalexin 500 MG Cap PO ONE (01:23)
[2024-09-12] MEDS: Acetaminophen 325 MG Tab PO ONE (01:52)
[2024-09-12] MEDS: Clindamycin HCl 150 MG Cap PO ONE (01:53)
== END 2024-09-12 02:00 | disposition home or self-care (01) ==
LOC: JD.ED 23:04
DX: M25.551 Pain in right hip (principal); R05.9 Cough, unspecified; L03.115 Cellulitis of right lower limb; L03.116 Cellulitis of left lower limb; J44.9 Chronic obstructive pulmonary disease, unspecified; Z86.16 Personal history of COVID-19; Z79.899 Other long term (current) drug therapy; Z91.018 Allergy to other foods; W19.XXXA Unspecified fall, initial encounter
CPT/HCPCS: 0241U; 36415; 70450; 71045; 72125; 72192; 73552; 80053; 85025; 99284; A9270-GY

== ENCOUNTER 2024-09-19 06:26 | Emergency (ER) | payer MEDICARE, MEDICAID ==
[2024-09-19] MEDS: Albuterol/Ipratropium 3.0-0.5 MG/3 ML Neb Soln NEB ONE (07:26)
== END 2024-09-19 08:33 | disposition home or self-care (01) ==
LOC: JD.ED 06:26
DX: M54.50 Low back pain, unspecified (principal); R06.2 Wheezing; J44.9 Chronic obstructive pulmonary disease, unspecified; Z91.018 Allergy to other foods; Z79.899 Other long term (current) drug therapy; Z86.16 Personal history of COVID-19
CPT/HCPCS: 71045; 71045-26; 94640; 99283; J7620-GY

== ENCOUNTER 2024-10-02 10:24 | Emergency (ER) | payer MEDICARE, MEDICAID ==
[2024-10-02 11:15] LABS: BASOPHILS PERCENT AUTO 0.7 % (0.0-1.0); EOSINOPHILS ABSOLUTE AUTO 0.2 K/mm3 (0.0-0.4); EOSINOPHILS PERCENT AUTO 2.6 % (0.0-6.0); HEMATOCRIT 41.9 % (42.0-52.0); HEMOGLOBIN 13.6 gm/dl (14.0-18.0); IMMATURE GRAN ABSOLUTE AUTO 0.03 K/mm3 (0.00-0.05); IMMATURE GRAN PERCENT AUTO 0.5 % (0.0-0.4); LYMPHOCYTES ABSOLUTE AUTO 1.4 K/mm3 (1.0-4.8); LYMPHOCYTES PERCENT AUTO 22.4 % (24.0-44.0); MEAN CORPUSCULAR HEMOGLOBIN 28.9 pg (28.0-32.0); MEAN CORPUSCULAR HGB CONC 32.5 g/dl (32.0-36.0); MONOCYTES ABSOLUTE AUTO 0.7 K/mm3 (0.0-0.8); MONOCYTES PERCENT AUTO 11.6 % (0.0-8.0); NEUTROPHILS ABSOLUTE AUTO 3.8 K/mm3 (1.8-7.7); NEUTROPHILS PERCENT AUTO 62.2 % (41.0-71.0); PLATELET COUNT,PLT 279 K/mm3 (150-400); RED BLOOD CELL COUNT 4.71 M/mm3 (4.52-5.90); WHITE BLOOD CELL COUNT,WBC 6.11 K/mm3 (3.9-11.3)
[2024-10-02 11:44] LABS: A/G RATIO 0.8 (1-2); ALBUMIN 3.6 g/dl (3.4-5.0); ANION GAP 13.2 (5-15); BILIRUBIN TOTAL 0.4 mg/dL (0.2-1.0); BUN/CREATININE RATIO 28.6 (14-18); C-REACTIVE PROTEIN 0.33 mg/dL (<0.30); CALCIUM 9.5 mg/dL (8.5-10.1); CREATININE 0.7 mg/dL (0.7-1.3); EST CRCL DRUG DOSING (CG) 91.18 mL/min; POTASSIUM,K 4.2 mEq/L (3.5-5.1)
[2024-10-02 12:07] LABS: TSH 0.351 uIU/mL (0.358-3.74)
[2024-10-02] MEDS: Albuterol/Ipratropium 3.0-0.5 MG/3 ML Neb Soln NEB ONE (12:26)
[2024-10-02 12:31] LABS: T4 FREE 0.93 ng/dL (0.76-1.46)
== END 2024-10-02 12:40 | disposition left against medical advice (07) ==
LOC: JD.ED 10:24
DX: R06.02 Shortness of breath (principal); Z86.16 Personal history of COVID-19; Z91.018 Allergy to other foods
CPT/HCPCS: 36415; 71046; 71046-26; 80053; 84439; 84443; 84484; 85025; 85379; 86140; 93005; 94640; 99285; J7620-GY

== ENCOUNTER 2024-10-16 12:47 | Emergency (ER) | payer MEDICARE, MEDICAID ==
[2024-10-16 14:40] LABS: BASOPHILS ABSOLUTE AUTO 0.1 K/mm3 (0.0-0.2); BASOPHILS PERCENT AUTO 0.8 % (0.0-1.0); EOSINOPHILS ABSOLUTE AUTO 0.3 K/mm3 (0.0-0.4); EOSINOPHILS PERCENT AUTO 4.1 % (0.0-6.0); HEMATOCRIT 39.1 % (42.0-52.0); HEMOGLOBIN 12.8 gm/dl (14.0-18.0); IMMATURE GRAN ABSOLUTE AUTO 0.04 K/mm3 (0.00-0.05); IMMATURE GRAN PERCENT AUTO 0.7 % (0.0-0.4); LYMPHOCYTES ABSOLUTE AUTO 1.8 K/mm3 (1.0-4.8); LYMPHOCYTES PERCENT AUTO 29.6 % (24.0-44.0); MEAN CORPUSCULAR HEMOGLOBIN 29.5 pg (28.0-32.0); MEAN CORPUSCULAR HGB CONC 32.7 g/dl (32.0-36.0); MEAN CORPUSCULAR VOLUME 90.1 fl (83.0-99.0); MEAN PLATELET VOLUME 9.7 fl (9.4-12.4); MONOCYTES PERCENT AUTO 16.7 % (0.0-8.0); NEUTROPHILS PERCENT AUTO 48.1 % (41.0-71.0); PLATELET COUNT,PLT 256 K/mm3 (150-400); RED BLOOD CELL COUNT 4.34 M/mm3 (4.52-5.90); WHITE BLOOD CELL COUNT,WBC 6.12 K/mm3 (3.9-11.3)
[2024-10-16 14:46] LABS: LACTIC ACID 1.5 mmol/L (0.4-2.0)
[2024-10-16] MEDS: Albuterol/Ipratropium 3.0-0.5 MG/3 ML Neb Soln NEB ONE (15:07)
[2024-10-16 15:18] LABS: A/G RATIO 0.9 (1-2); ALBUMIN 3.3 g/dl (3.4-5.0); ANION GAP 12.3 (5-15); BILIRUBIN TOTAL 0.4 mg/dL (0.2-1.0); C-REACTIVE PROTEIN 0.42 mg/dL (<0.30); CALCIUM 8.8 mg/dL (8.5-10.1); CREATININE 0.8 mg/dL (0.7-1.3); EST CRCL DRUG DOSING (CG) 79.78 mL/min; POTASSIUM,K 4.3 mEq/L (3.5-5.1)
== END 2024-10-16 16:41 | disposition home or self-care (01) ==
LOC: JD.ED 12:47
DX: R06.02 Shortness of breath (principal); M25.512 Pain in left shoulder; M25.551 Pain in right hip; J44.9 Chronic obstructive pulmonary disease, unspecified; Z91.018 Allergy to other foods; Z79.899 Other long term (current) drug therapy; Z86.16 Personal history of COVID-19
CPT/HCPCS: 36415; 71045; 71045-26; 73030-26-LT; 73030-LT; 73502-26-RT; 73502-RT; 80053; 83605; 83880; 84484; 85025; 85379; 86140; 87428-QW; 93005; 94640; 99285; J7620-GY

== ENCOUNTER 2024-10-21 15:43 | Emergency (ER) | payer MEDICARE, MEDICAID ==
[2024-10-21] MEDS: Albuterol/Ipratropium 3.0-0.5 MG/3 ML Neb Soln NEB ONE ×2 (17:24→18:35)
[2024-10-21 17:34] LABS: BASOPHILS PERCENT AUTO 0.6 % (0.0-1.0); EOSINOPHILS ABSOLUTE AUTO 0.2 K/mm3 (0.0-0.4); EOSINOPHILS PERCENT AUTO 3.2 % (0.0-6.0); HEMATOCRIT 42.6 % (42.0-52.0); HEMOGLOBIN 13.9 gm/dl (14.0-18.0); IMMATURE GRAN ABSOLUTE AUTO 0.08 K/mm3 (0.00-0.05); IMMATURE GRAN PERCENT AUTO 1.2 % (0.0-0.4); LYMPHOCYTES ABSOLUTE AUTO 1.7 K/mm3 (1.0-4.8); LYMPHOCYTES PERCENT AUTO 24.7 % (24.0-44.0); MEAN CORPUSCULAR HEMOGLOBIN 29.2 pg (28.0-32.0); MEAN CORPUSCULAR HGB CONC 32.6 g/dl (32.0-36.0); MEAN CORPUSCULAR VOLUME 89.5 fl (83.0-99.0); MEAN PLATELET VOLUME 9.6 fl (9.4-12.4); MONOCYTES PERCENT AUTO 14.6 % (0.0-8.0); NEUTROPHILS ABSOLUTE AUTO 3.9 K/mm3 (1.8-7.7); NEUTROPHILS PERCENT AUTO 55.7 % (41.0-71.0); PLATELET COUNT,PLT 266 K/mm3 (150-400); RED BLOOD CELL COUNT 4.76 M/mm3 (4.52-5.90); WHITE BLOOD CELL COUNT,WBC 6.92 K/mm3 (3.9-11.3)
[2024-10-21 18:07] LABS: A/G RATIO 0.8 (1-2); ALBUMIN 3.2 g/dl (3.4-5.0); ANION GAP 12.3 (5-15); BILIRUBIN TOTAL 0.3 mg/dL (0.2-1.0); BUN/CREATININE RATIO 21.1 (14-18); CALCIUM 9.2 mg/dL (8.5-10.1); CREATININE 0.9 mg/dL (0.7-1.3); EST CRCL DRUG DOSING (CG) 70.92 mL/min; POTASSIUM,K 4.3 mEq/L (3.5-5.1); PROTEIN TOTAL,TP 7.1 g/dl (6.4-8.2)
[2024-10-21] MEDS: methylPREDNISolone Sodium Succinate 125 MG/2 ML SDV IVPUSH ONE (18:19)
== END 2024-10-21 20:22 | disposition home or self-care (01) ==
LOC: JD.ED 15:43
DX: R06.02 Shortness of breath (principal); J44.9 Chronic obstructive pulmonary disease, unspecified; Z86.16 Personal history of COVID-19; Z91.018 Allergy to other foods
CPT/HCPCS: 36415; 71046; 80053; 83735; 83880; 85025; 87428; 93005; 94640; 96374; 99285; J2919; J7620-GY

== ENCOUNTER 2025-02-10 05:49 | Emergency (ER) | payer MEDICARE, MEDICAID ==
[2025-02-10 06:45] LABS: BASOPHILS ABSOLUTE AUTO 0.1 K/mm3 (0.0-0.2); BASOPHILS PERCENT AUTO 0.8 % (0.0-1.0); EOSINOPHILS ABSOLUTE AUTO 0.2 K/mm3 (0.0-0.4); EOSINOPHILS PERCENT AUTO 2.7 % (0.0-6.0); HEMATOCRIT 39.7 % (42.0-52.0); HEMOGLOBIN 12.7 gm/dl (14.0-18.0); IMMATURE GRAN ABSOLUTE AUTO 0.17 K/mm3 (0.00-0.05); IMMATURE GRAN PERCENT AUTO 2.3 % (0.0-0.4); LYMPHOCYTES ABSOLUTE AUTO 1.5 K/mm3 (1.0-4.8); LYMPHOCYTES PERCENT AUTO 20.4 % (24.0-44.0); MEAN CORPUSCULAR HEMOGLOBIN 29.5 pg (28.0-32.0); MEAN CORPUSCULAR VOLUME 92.1 fl (83.0-99.0); MEAN PLATELET VOLUME 9.5 fl (9.4-12.4); MONOCYTES PERCENT AUTO 13.3 % (0.0-8.0); NEUTROPHILS ABSOLUTE AUTO 4.4 K/mm3 (1.8-7.7); NEUTROPHILS PERCENT AUTO 60.5 % (41.0-71.0); PLATELET COUNT,PLT 234 K/mm3 (150-400); RED BLOOD CELL COUNT 4.31 M/mm3 (4.52-5.90); WHITE BLOOD CELL COUNT,WBC 7.29 K/mm3 (3.9-11.3)
[2025-02-10 06:59] LABS: APPEARANCE,URINE CLEAR (Clear); BILIRUBIN,URINE NEGATIVE (Negative); COLOR,URINE YELLOW (Yellow); GLUCOSE,URINE NEGATIVE (Negative); KETONES,URINE NEGATIVE (Negative); LEUKOCYTE ESTERASE,URINE NEGATIVE (Negative); NITRITE,URINE NEGATIVE (Negative); OCCULT BLOOD,URINE NEGATIVE (Negative); PROTEIN,URINE NEGATIVE (Negative); UROBILINOGEN,URINE 0.2 (0.2-1.0)
[2025-02-10 07:06] LABS: A/G RATIO 0.8 (1-2); ANION GAP 7.2 (5-15); BILIRUBIN TOTAL 0.6 mg/dL (0.2-1.0); BUN/CREATININE RATIO 18.8 (14-18); CALCIUM 8.8 mg/dL (8.5-10.1); CREATININE 0.8 mg/dL (0.7-1.3); EST CRCL DRUG DOSING (CG) 78.56 mL/min; POTASSIUM,K 4.2 mEq/L (3.5-5.1); PROTEIN TOTAL,TP 6.7 g/dl (6.4-8.2)
[2025-02-10] MEDS: Sodium Chloride 0.9% 10 ML Syringe FLUSH PRN (07:20)
[2025-02-10] MEDS: Iopamidol 612 MG/ML 100 ML Bottle IVPUSH ONE (07:20)
[2025-02-10] MEDS: Iopamidol 612 MG/ML 30 ML SDV IVPUSH ONE (07:20)
== END 2025-02-10 08:17 | disposition home or self-care (01) ==
LOC: JD.ED 05:49
DX: S30.1XXA Contusion of abdominal wall, initial encounter (principal); M54.50 Low back pain, unspecified; Z91.018 Allergy to other foods; Z79.899 Other long term (current) drug therapy; Z86.16 Personal history of COVID-19; W19.XXXA Unspecified fall, initial encounter
CPT/HCPCS: 36415; 70450; 71260; 72125; 74177; 80053; 81003; 83690; 85025; 93005; 99284; Q9967; 93010; 99283

== ENCOUNTER 2025-02-15 23:51 | Emergency (ER) | payer MEDICARE, MEDICAID ==
[2025-02-16] MEDS ORDERED: Sodium Chloride 0.9% 10 ML Syringe FLUSH PRN (00:40)
[2025-02-16] MEDS: Albuterol/Ipratropium 3.0-0.5 MG/3 ML Neb Soln NEB SCH ×2 (00:45→03:21)
[2025-02-16 01:06] LABS: A/G RATIO 0.8 (1-2); ALBUMIN 3.2 g/dl (3.4-5.0); ANION GAP 7.9 (5-15); BILIRUBIN TOTAL 0.4 mg/dL (0.2-1.0); CALCIUM 8.8 mg/dL (8.5-10.1); EST CRCL DRUG DOSING (CG) 62.84 mL/min; LACTIC ACID 1.2 mmol/L (0.4-2.0); POTASSIUM,K 3.9 mEq/L (3.5-5.1)
[2025-02-16 01:15] LABS: BASOPHILS PERCENT AUTO 0.6 % (0.0-1.0); EOSINOPHILS ABSOLUTE AUTO 0.2 K/mm3 (0.0-0.4); EOSINOPHILS PERCENT AUTO 3.2 % (0.0-6.0); HEMATOCRIT 40.1 % (42.0-52.0); HEMOGLOBIN 12.6 gm/dl (14.0-18.0); IMMATURE GRAN ABSOLUTE AUTO 0.06 K/mm3 (0.00-0.05); IMMATURE GRAN PERCENT AUTO 0.9 % (0.0-0.4); LYMPHOCYTES ABSOLUTE AUTO 1.6 K/mm3 (1.0-4.8); LYMPHOCYTES PERCENT AUTO 24.5 % (24.0-44.0); MEAN CORPUSCULAR HEMOGLOBIN 28.9 pg (28.0-32.0); MEAN CORPUSCULAR HGB CONC 31.4 g/dl (32.0-36.0); MEAN PLATELET VOLUME 10.1 fl (9.4-12.4); MONOCYTES ABSOLUTE AUTO 0.8 K/mm3 (0.0-0.8); NEUTROPHILS ABSOLUTE AUTO 3.9 K/mm3 (1.8-7.7); NEUTROPHILS PERCENT AUTO 58.8 % (41.0-71.0); PLATELET COUNT,PLT 236 K/mm3 (150-400); RED BLOOD CELL COUNT 4.36 M/mm3 (4.52-5.90); WHITE BLOOD CELL COUNT,WBC 6.65 K/mm3 (3.9-11.3)
[2025-02-16] MEDS: Iopamidol 755 Mg/ML 100 ML Bottle IVPUSH ONE (01:21)
[2025-02-16] MEDS: methylPREDNISolone Sodium Succinate 125 MG/2 ML SDV IVPUSH ONE (01:21)
[2025-02-16] MEDS: Sodium Chloride 0.9% 500 ML IV ONE (01:21)
[2025-02-16] MEDS: Piperacillin/Tazobactam 4.5 GM in Sodium Chloride 0.9% 100 ML IV ONE (01:22)
[2025-02-16 01:34] LABS: CORONAVIRUS COVID-19 NAA NEGATIVE (NEGATIVE); INFLUENZA A NAA NEGATIVE (NEGATIVE); RESPIRATORY SYNCYTIAL VIR NAA NEGATIVE (NEGATIVE)
[2025-02-16 02:17] LABS: APPEARANCE,URINE CLEAR (Clear); BILIRUBIN,URINE NEGATIVE (Negative); COLOR,URINE YELLOW (Yellow); GLUCOSE,URINE NEGATIVE (Negative); KETONES,URINE NEGATIVE (Negative); LEUKOCYTE ESTERASE,URINE NEGATIVE (Negative); NITRITE,URINE NEGATIVE (Negative); OCCULT BLOOD,URINE NEGATIVE (Negative); PROTEIN,URINE NEGATIVE (Negative); UROBILINOGEN,URINE 0.2 (0.2-1.0)
== END 2025-02-16 05:30 | disposition home or self-care (01) ==
LOC: JD.ED 23:51
DX: J44.1 Chronic obstructive pulmonary disease with (acute) exacerbation (principal); L03.115 Cellulitis of right lower limb; L03.116 Cellulitis of left lower limb; Z86.16 Personal history of COVID-19; Z91.018 Allergy to other foods; Z79.51 Long term (current) use of inhaled steroids; Z79.899 Other long term (current) drug therapy
CPT/HCPCS: 0241U; 36415; 70450; 71275; 72125; 80053; 81003; 83605; 83690; 83735; 83880; 84484; 85025; 87040; 93005; 94640; 96365; 96375; 99285; A9270; J2543; J2919; J7030; Q9967; 93010; 99284

== ENCOUNTER 2025-02-21 00:19 | Emergency (ER) | payer MEDICAID, MEDICARE ==
[2025-02-21] MEDS: cefTRIAXone 1 GM, Lidocaine 1% 2.1 ML IM ONE (01:36)
[2025-02-21 01:43] LABS: APPEARANCE,URINE CLEAR (Clear); BILIRUBIN,URINE NEGATIVE (Negative); COLOR,URINE YELLOW (Yellow); GLUCOSE,URINE NEGATIVE (Negative); KETONES,URINE NEGATIVE (Negative); LEUKOCYTE ESTERASE,URINE NEGATIVE (Negative); NITRITE,URINE NEGATIVE (Negative); OCCULT BLOOD,URINE NEGATIVE (Negative); PH,URINE 6.5 (5.0-8.0); PROTEIN,URINE NEGATIVE (Negative); UROBILINOGEN,URINE 0.2 (0.2-1.0)
== END 2025-02-21 02:21 | disposition home or self-care (01) ==
LOC: JD.ED 00:19
DX: N39.0 Urinary tract infection, site not specified (principal); Z86.16 Personal history of COVID-19; Z79.899 Other long term (current) drug therapy; Z91.018 Allergy to other foods
CPT/HCPCS: 74176; 81003; 96372; 99284; J0696; J2003

== ENCOUNTER 2025-03-07 20:21 | Emergency (ER) | payer MEDICARE, MEDICAID ==
[2025-03-07] MEDS ORDERED: Sodium Chloride 0.9% 10 ML Syringe FLUSH PRN (20:58)
[2025-03-07] MEDS: Cephalexin 500 MG Cap PO ONE (21:07)
[2025-03-07] MEDS: methylPREDNISolone Sodium Succinate 125 MG/2 ML SDV IVPUSH ONE (21:07)
[2025-03-07 21:09] LABS: BASOPHILS ABSOLUTE AUTO 0.1 K/mm3 (0.0-0.2); BASOPHILS PERCENT AUTO 0.7 % (0.0-1.0); EOSINOPHILS ABSOLUTE AUTO 0.2 K/mm3 (0.0-0.4); EOSINOPHILS PERCENT AUTO 2.7 % (0.0-6.0); HEMATOCRIT 43.1 % (42.0-52.0); HEMOGLOBIN 13.7 gm/dl (14.0-18.0); IMMATURE GRAN ABSOLUTE AUTO 0.22 K/mm3 (0.00-0.05); IMMATURE GRAN PERCENT AUTO 3.2 % (0.0-0.4); LYMPHOCYTES ABSOLUTE AUTO 1.7 K/mm3 (1.0-4.8); LYMPHOCYTES PERCENT AUTO 24.1 % (24.0-44.0); MEAN CORPUSCULAR HEMOGLOBIN 28.5 pg (28.0-32.0); MEAN CORPUSCULAR HGB CONC 31.8 g/dl (32.0-36.0); MEAN CORPUSCULAR VOLUME 89.6 fl (83.0-99.0); MEAN PLATELET VOLUME 9.9 fl (9.4-12.4); MONOCYTES ABSOLUTE AUTO 0.8 K/mm3 (0.0-0.8); MONOCYTES PERCENT AUTO 11.8 % (0.0-8.0); NEUTROPHILS PERCENT AUTO 57.5 % (41.0-71.0); PLATELET COUNT,PLT 262 K/mm3 (150-400); RED BLOOD CELL COUNT 4.81 M/mm3 (4.52-5.90); WHITE BLOOD CELL COUNT,WBC 6.97 K/mm3 (3.9-11.3)
[2025-03-07] MEDS: Albuterol/Ipratropium 3.0-0.5 MG/3 ML Neb Soln NEB SCH (21:11)
[2025-03-07 21:30] LABS: A/G RATIO 0.9 (1-2); ALBUMIN 3.2 g/dl (3.4-5.0); ANION GAP 8.2 (5-15); BILIRUBIN TOTAL 0.7 mg/dL (0.2-1.0); CALCIUM 8.7 mg/dL (8.5-10.1); EST CRCL DRUG DOSING (CG) 62.84 mL/min; POTASSIUM,K 4.2 mEq/L (3.5-5.1); PROTEIN TOTAL,TP 6.7 g/dl (6.4-8.2)
[2025-03-07 21:54] LABS: CORONAVIRUS COVID-19 NAA NEGATIVE (NEGATIVE); INFLUENZA A NAA NEGATIVE (NEGATIVE); RESPIRATORY SYNCYTIAL VIR NAA NEGATIVE (NEGATIVE)
== END 2025-03-07 23:32 | disposition home or self-care (01) ==
LOC: JD.ED 20:21
DX: J44.1 Chronic obstructive pulmonary disease with (acute) exacerbation (principal); L03.115 Cellulitis of right lower limb; L03.116 Cellulitis of left lower limb; E78.00 Pure hypercholesterolemia, unspecified; Z86.16 Personal history of COVID-19; Z91.018 Allergy to other foods; Z79.51 Long term (current) use of inhaled steroids; Z79.899 Other long term (current) drug therapy
CPT/HCPCS: 0241U; 36415; 80053; 83880; 84484; 85025; 85379; 93005; 94640; 96374; 99285; A9270; J2919; 93010; 99284

== ENCOUNTER 2025-04-10 00:54 | Emergency (ER) | payer MEDICARE, MEDICAID ==
[2025-04-10] MEDS ORDERED: Sodium Chloride 0.9% 10 ML Syringe FLUSH PRN (01:26)
[2025-04-10] MEDS: Albuterol/Ipratropium 3.0-0.5 MG/3 ML Neb Soln NEB SCH (01:37)
[2025-04-10 02:13] LABS: BASOPHILS ABSOLUTE AUTO 0.1 K/mm3 (0.0-0.2); BASOPHILS PERCENT AUTO 0.4 % (0.0-1.0); EOSINOPHILS ABSOLUTE AUTO 0.1 K/mm3 (0.0-0.4); EOSINOPHILS PERCENT AUTO 0.7 % (0.0-6.0); HEMATOCRIT 44.1 % (42.0-52.0); HEMOGLOBIN 14.1 gm/dl (14.0-18.0); IMMATURE GRAN ABSOLUTE AUTO 0.63 K/mm3 (0.00-0.05); IMMATURE GRAN PERCENT AUTO 5.2 % (0.0-0.4); LYMPHOCYTES ABSOLUTE AUTO 2.8 K/mm3 (1.0-4.8); LYMPHOCYTES PERCENT AUTO 23.1 % (24.0-44.0); MEAN CORPUSCULAR HEMOGLOBIN 29.4 pg (28.0-32.0); MEAN CORPUSCULAR VOLUME 91.9 fl (83.0-99.0); MEAN PLATELET VOLUME 9.6 fl (9.4-12.4); MONOCYTES ABSOLUTE AUTO 1.2 K/mm3 (0.0-0.8); NEUTROPHILS ABSOLUTE AUTO 7.4 K/mm3 (1.8-7.7); NEUTROPHILS PERCENT AUTO 60.6 % (41.0-71.0); PLATELET COUNT,PLT 291 K/mm3 (150-400); WHITE BLOOD CELL COUNT,WBC 12.12 K/mm3 (3.9-11.3)
[2025-04-10] MEDS: methylPREDNISolone Sodium Succinate 125 MG/2 ML SDV IVPUSH ONE (02:17)
[2025-04-10 02:40] LABS: A/G RATIO 0.9 (1-2); ALBUMIN 3.2 g/dl (3.4-5.0); BILIRUBIN TOTAL 0.5 mg/dL (0.2-1.0); CALCIUM 9.1 mg/dL (8.5-10.1); EST CRCL DRUG DOSING (CG) 62.84 mL/min; PROTEIN TOTAL,TP 6.7 g/dl (6.4-8.2)
[2025-04-10 02:47] LABS: SLIDE REVIEW ABNORMAL SMEAR
== END 2025-04-10 03:18 | disposition home or self-care (01) ==
LOC: JD.ED 00:54
DX: J44.1 Chronic obstructive pulmonary disease with (acute) exacerbation (principal); Z91.018 Allergy to other foods; Z79.899 Other long term (current) drug therapy; Z86.16 Personal history of COVID-19
CPT/HCPCS: 36415; 71045; 71045-26; 80053; 83880; 84484; 85025; 93005; 94640; 96374; 99285-25; A9270-GY; J2919

== ENCOUNTER 2025-04-17 21:31 | Emergency (ER) | payer MEDICARE, MEDICAID ==
[2025-04-17] MEDS ORDERED: Sodium Chloride 0.9% 10 ML Syringe FLUSH PRN (22:01)
[2025-04-17] MEDS: Albuterol/Ipratropium 3.0-0.5 MG/3 ML Neb Soln NEB SCH (22:12)
[2025-04-17] MEDS: methylPREDNISolone Sodium Succinate 125 MG/2 ML SDV IVPUSH ONE (22:14)
[2025-04-17 22:20] LABS: BASOPHILS PERCENT AUTO 0.5 % (0.0-1.0); EOSINOPHILS ABSOLUTE AUTO 0.1 K/mm3 (0.0-0.4); EOSINOPHILS PERCENT AUTO 1.7 % (0.0-6.0); HEMATOCRIT 43.3 % (42.0-52.0); HEMOGLOBIN 13.8 gm/dl (14.0-18.0); IMMATURE GRAN ABSOLUTE AUTO 0.17 K/mm3 (0.00-0.05); IMMATURE GRAN PERCENT AUTO 2.6 % (0.0-0.4); LYMPHOCYTES ABSOLUTE AUTO 1.2 K/mm3 (1.0-4.8); LYMPHOCYTES PERCENT AUTO 18.8 % (24.0-44.0); MEAN CORPUSCULAR HEMOGLOBIN 29.1 pg (28.0-32.0); MEAN CORPUSCULAR HGB CONC 31.9 g/dl (32.0-36.0); MEAN CORPUSCULAR VOLUME 91.2 fl (83.0-99.0); MEAN PLATELET VOLUME 9.9 fl (9.4-12.4); MONOCYTES ABSOLUTE AUTO 0.9 K/mm3 (0.0-0.8); MONOCYTES PERCENT AUTO 13.8 % (0.0-8.0); NEUTROPHILS PERCENT AUTO 62.6 % (41.0-71.0); PLATELET COUNT,PLT 196 K/mm3 (150-400); RED BLOOD CELL COUNT 4.75 M/mm3 (4.52-5.90); WHITE BLOOD CELL COUNT,WBC 6.45 K/mm3 (3.9-11.3)
[2025-04-17 22:55] LABS: A/G RATIO 0.8 (1-2); ANION GAP 7.9 (5-15); BILIRUBIN TOTAL 0.5 mg/dL (0.2-1.0); CALCIUM 8.6 mg/dL (8.5-10.1); EST CRCL DRUG DOSING (CG) 52.62 mL/min; POTASSIUM,K 3.9 mEq/L (3.5-5.1); PROTEIN TOTAL,TP 6.7 g/dl (6.4-8.2)
[2025-04-18] MEDS: Albuterol/Ipratropium 3.0-0.5 MG/3 ML Neb Soln NEB ONE ×2 (00:35→00:36)
== END 2025-04-18 02:00 | disposition left against medical advice (07) ==
LOC: JD.ED 21:31
DX: J44.1 Chronic obstructive pulmonary disease with (acute) exacerbation (principal); R79.89 Other specified abnormal findings of blood chemistry; E78.00 Pure hypercholesterolemia, unspecified; K21.9 Gastro-esophageal reflux disease without esophagitis; Z86.16 Personal history of COVID-19; Z79.899 Other long term (current) drug therapy; Z91.018 Allergy to other foods
CPT/HCPCS: 36415; 71045; 80053; 83880; 84484; 85025; 85379; 93005; 94640; 96374; 99285; A9270; J2919; 93010; 99284

== ENCOUNTER 2025-04-24 19:52 | Inpatient (IN) | payer MEDICARE, MEDICAID ==
[2025-04-24] MEDS: methylPREDNISolone Sodium Succinate 125 MG/2 ML SDV IVPUSH ONE (21:18)
[2025-04-24] MEDS: Sodium Chloride 0.9% 10 ML Syringe FLUSH PRN (21:18)
[2025-04-24 21:20] LABS: BASOPHILS ABSOLUTE AUTO 0.1 K/mm3 (0.0-0.2); BASOPHILS PERCENT AUTO 0.6 % (0.0-1.0); EOSINOPHILS ABSOLUTE AUTO 0.2 K/mm3 (0.0-0.4); HEMATOCRIT 44.2 % (42.0-52.0); HEMOGLOBIN 14.1 gm/dl (14.0-18.0); IMMATURE GRAN ABSOLUTE AUTO 0.54 K/mm3 (0.00-0.05); IMMATURE GRAN PERCENT AUTO 5.9 % (0.0-0.4); LYMPHOCYTES ABSOLUTE AUTO 1.7 K/mm3 (1.0-4.8); LYMPHOCYTES PERCENT AUTO 18.5 % (24.0-44.0); MEAN CORPUSCULAR HGB CONC 31.9 g/dl (32.0-36.0); MEAN CORPUSCULAR VOLUME 90.9 fl (83.0-99.0); MEAN PLATELET VOLUME 9.4 fl (9.4-12.4); MONOCYTES ABSOLUTE AUTO 0.9 K/mm3 (0.0-0.8); MONOCYTES PERCENT AUTO 10.1 % (0.0-8.0); NEUTROPHILS ABSOLUTE AUTO 5.7 K/mm3 (1.8-7.7); NEUTROPHILS PERCENT AUTO 62.9 % (41.0-71.0); PLATELET COUNT,PLT 263 K/mm3 (150-400); RED BLOOD CELL COUNT 4.86 M/mm3 (4.52-5.90); WHITE BLOOD CELL COUNT,WBC 9.09 K/mm3 (3.9-11.3)
[2025-04-24] MEDS: Albuterol/Ipratropium 3.0-0.5 MG/3 ML Neb Soln NEB ONE (21:40)
[2025-04-24 21:54] LABS: A/G RATIO 0.9 (1-2); ANION GAP 6.3 (5-15); BILIRUBIN TOTAL 0.7 mg/dL (0.2-1.0); C-REACTIVE PROTEIN 1.66 mg/dL (<0.30); CALCIUM 9.6 mg/dL (8.5-10.1); EST CRCL DRUG DOSING (CG) 52.62 mL/min; POTASSIUM,K 4.3 mEq/L (3.5-5.1); PROTEIN TOTAL,TP 6.5 g/dl (6.4-8.2)
[2025-04-24] MEDS: Azithromycin 500 MG in Sodium Chloride 0.9% 250 ML IV ONE (22:05)
[2025-04-24] MEDS: Ondansetron 4 MG/2 ML SDV IVPUSH ONE (22:05)
[2025-04-24 22:11] LABS: SLIDE REVIEW ABNORMAL SMEAR
[2025-04-24 22:13] LABS: MAGNESIUM 2.6 mg/dL (1.8-2.4)
[2025-04-25] MEDS ORDERED: Acetaminophen 325 MG Tab PO PRN (00:52)
[2025-04-25 05:38] LABS: BASOPHILS PERCENT AUTO 0.6 % (0.0-1.0); HEMATOCRIT 41.5 % (42.0-52.0); IMMATURE GRAN ABSOLUTE AUTO 0.42 K/mm3 (0.00-0.05); IMMATURE GRAN PERCENT AUTO 6.1 % (0.0-0.4); LYMPHOCYTES ABSOLUTE AUTO 0.8 K/mm3 (1.0-4.8); LYMPHOCYTES PERCENT AUTO 12.1 % (24.0-44.0); MEAN CORPUSCULAR HEMOGLOBIN 28.7 pg (28.0-32.0); MEAN CORPUSCULAR HGB CONC 31.3 g/dl (32.0-36.0); MEAN CORPUSCULAR VOLUME 91.6 fl (83.0-99.0); MEAN PLATELET VOLUME 9.7 fl (9.4-12.4); MONOCYTES ABSOLUTE AUTO 0.1 K/mm3 (0.0-0.8); MONOCYTES PERCENT AUTO 1.4 % (0.0-8.0); NEUTROPHILS ABSOLUTE AUTO 5.5 K/mm3 (1.8-7.7); NEUTROPHILS PERCENT AUTO 79.8 % (41.0-71.0); PLATELET COUNT,PLT 238 K/mm3 (150-400); RED BLOOD CELL COUNT 4.53 M/mm3 (4.52-5.90); WHITE BLOOD CELL COUNT,WBC 6.94 K/mm3 (3.9-11.3)
[2025-04-25] MEDS: Albuterol/Ipratropium 3.0-0.5 MG/3 ML Neb Soln NEB SCH (05:54)
[2025-04-25 05:59] LABS: A/G RATIO 0.8 (1-2); ALBUMIN 2.5 g/dl (3.4-5.0); ANION GAP 9.4 (5-15); BILIRUBIN TOTAL 0.7 mg/dL (0.2-1.0); EST CRCL DRUG DOSING (CG) 62.84 mL/min; MAGNESIUM 2.3 mg/dL (1.8-2.4); PHOSPHORUS 5.7 mg/dL (2.6-4.7); POTASSIUM,K 5.4 mEq/L (3.5-5.1); PROTEIN TOTAL,TP 5.7 g/dl (6.4-8.2)
[2025-04-25 06:17] LABS: SLIDE REVIEW ABNORMAL SMEAR
[2025-04-25] MEDS: methylPREDNISolone Sodium Succinate 125 MG/2 ML SDV IVPUSH ONE (10:07)
[2025-04-25] MEDS: Insulin Regular, Human 100 Units/ML 10 ML Vial IV ONE (10:10)
[2025-04-25] MEDS: 25% Dextrose in Water 10 ML Syringe IVPUSH ONE ×2 (10:15→10:17)
[2025-04-25] MEDS: Insulin Regular, Human 100 Units/ML 3 ML Vial IV ONE (10:15)
[2025-04-25] MEDS: Calcium Gluconate 10% 1 GM/10 ML SDV IV ONE (10:22)
== END 2025-04-25 13:26 | disposition left against medical advice (07) | DRG 192 ==
LOC: JD.ED 19:52 → JD.MS 22:31
PROVIDERS: ADMIT Student in an Organized Health Care Education/Training Program; ATTEND Student in an Organized Health Care Education/Training Program
PROC: 5A0935A Assistance with Respiratory Ventilation, Less than 24 Consecutive Hours, High Flow/Velocity Cannula (ICD-10-PCS; principal; 2025-04-24)
DX: J44.1 Chronic obstructive pulmonary disease with (acute) exacerbation (principal); E78.00 Pure hypercholesterolemia, unspecified; K21.9 Gastro-esophageal reflux disease without esophagitis; M54.9 Dorsalgia, unspecified; G89.29 Other chronic pain; M19.90 Unspecified osteoarthritis, unspecified site; E55.9 Vitamin D deficiency, unspecified; Z88.8 Allergy status to other drugs, medicaments and biological substances; Z98.49 Cataract extraction status, unspecified eye; Z98.890 Other specified postprocedural states; Z96.659 Presence of unspecified artificial knee joint; Z79.52 Long term (current) use of systemic steroids; Z79.899 Other long term (current) drug therapy; Z86.16 Personal history of COVID-19; Z96.619 Presence of unspecified artificial shoulder joint
CPT/HCPCS: 36415; 71045; 80053; 83735; 84484; 85025; 86140; 93005; 94640; 96365; 96375; 99285; A9270; J0456; J2405; J2919; J7050; 84100; 93010; 94760; 99221; J0612; J1815-GY; J3490

== ENCOUNTER 2025-04-25 18:11 | Inpatient (IN) | payer MEDICARE, MEDICAID ==
[2025-04-25 18:52] LABS: BASOPHILS PERCENT AUTO 0.2 % (0.0-1.0); HEMATOCRIT 41.9 % (42.0-52.0); HEMOGLOBIN 13.1 gm/dl (14.0-18.0); IMMATURE GRAN ABSOLUTE AUTO 0.54 K/mm3 (0.00-0.05); IMMATURE GRAN PERCENT AUTO 4.5 % (0.0-0.4); LYMPHOCYTES ABSOLUTE AUTO 0.4 K/mm3 (1.0-4.8); LYMPHOCYTES PERCENT AUTO 3.5 % (24.0-44.0); MEAN CORPUSCULAR HGB CONC 31.3 g/dl (32.0-36.0); MEAN CORPUSCULAR VOLUME 92.9 fl (83.0-99.0); MEAN PLATELET VOLUME 9.4 fl (9.4-12.4); MONOCYTES ABSOLUTE AUTO 0.5 K/mm3 (0.0-0.8); MONOCYTES PERCENT AUTO 3.7 % (0.0-8.0); NEUTROPHILS ABSOLUTE AUTO 10.7 K/mm3 (1.8-7.7); NEUTROPHILS PERCENT AUTO 88.1 % (41.0-71.0); PLATELET COUNT,PLT 273 K/mm3 (150-400); RED BLOOD CELL COUNT 4.51 M/mm3 (4.52-5.90); WHITE BLOOD CELL COUNT,WBC 12.12 K/mm3 (3.9-11.3)
[2025-04-25] MEDS: methylPREDNISolone Sodium Succinate 125 MG/2 ML SDV IVPUSH ONE (18:54)
[2025-04-25 18:55] LABS: O2 SATURATION ARTERIAL 97.9 % (96.0-97.0)
[2025-04-25] MEDS: Azithromycin 500 MG in Sodium Chloride 0.9% 250 ML IV ONE (18:55)
[2025-04-25] MEDS: Famotidine 20 MG/2 ML SDV IVPUSH ONE (18:55)
[2025-04-25 18:56] LABS: BASE EXCESS ARTERIAL 5.6 (-2-2.0); BICARBONATE,ARTERIAL 33.1 meq/L (22.0-26.0)
[2025-04-25] MEDS: Albuterol/Ipratropium 3.0-0.5 MG/3 ML Neb Soln NEB ONE (19:04)
[2025-04-25 19:18] LABS: A/G RATIO 0.8 (1-2); ALBUMIN 2.8 g/dl (3.4-5.0); ANION GAP 10.7 (5-15); BILIRUBIN TOTAL 0.5 mg/dL (0.2-1.0); BUN/CREATININE RATIO 27.7 (14-18); CALCIUM 8.9 mg/dL (8.5-10.1); CREATININE 1.3 mg/dL (0.7-1.3); EST CRCL DRUG DOSING (CG) 45.2 mL/min; MAGNESIUM 2.3 mg/dL (1.8-2.4); POTASSIUM,K 4.7 mEq/L (3.5-5.1); PROTEIN TOTAL,TP 6.3 g/dl (6.4-8.2)
[2025-04-25 19:34] LABS: SLIDE REVIEW ABNORMAL SMEAR
[2025-04-25] MEDS ORDERED: Acetaminophen 325 MG Tab PO PRN (21:23)
[2025-04-25] MEDS: Albuterol/Ipratropium 3.0-0.5 MG/3 ML Neb Soln ONE (21:33)
[2025-04-26] MEDS: Albuterol/Ipratropium 3.0-0.5 MG/3 ML Neb Soln NEB SCH (05:08)
[2025-04-26 06:04] LABS: BASOPHILS PERCENT AUTO 0.1 % (0.0-1.0); HEMATOCRIT 40.3 % (42.0-52.0); HEMOGLOBIN 12.6 gm/dl (14.0-18.0); IMMATURE GRAN ABSOLUTE AUTO 0.38 K/mm3 (0.00-0.05); IMMATURE GRAN PERCENT AUTO 2.9 % (0.0-0.4); LYMPHOCYTES ABSOLUTE AUTO 0.8 K/mm3 (1.0-4.8); LYMPHOCYTES PERCENT AUTO 5.8 % (24.0-44.0); MEAN CORPUSCULAR HGB CONC 31.3 g/dl (32.0-36.0); MEAN CORPUSCULAR VOLUME 92.6 fl (83.0-99.0); MEAN PLATELET VOLUME 9.7 fl (9.4-12.4); MONOCYTES ABSOLUTE AUTO 0.6 K/mm3 (0.0-0.8); MONOCYTES PERCENT AUTO 4.2 % (0.0-8.0); NEUTROPHILS ABSOLUTE AUTO 11.4 K/mm3 (1.8-7.7); PLATELET COUNT,PLT 250 K/mm3 (150-400); RED BLOOD CELL COUNT 4.35 M/mm3 (4.52-5.90)
[2025-04-26 06:41] LABS: A/G RATIO 0.8 (1-2); ALBUMIN 2.6 g/dl (3.4-5.0); ANION GAP 9.6 (5-15); BILIRUBIN TOTAL 0.4 mg/dL (0.2-1.0); BUN/CREATININE RATIO 28.9 (14-18); CALCIUM 8.8 mg/dL (8.5-10.1); CREATININE 0.9 mg/dL (0.7-1.3); EST CRCL DRUG DOSING (CG) 69.83 mL/min; MAGNESIUM 2.3 mg/dL (1.8-2.4); POTASSIUM,K 4.6 mEq/L (3.5-5.1); PROTEIN TOTAL,TP 5.9 g/dl (6.4-8.2)
[2025-04-26] MEDS ORDERED: Melatonin 3 MG Tab PO PRN (10:25)
[2025-04-26] MEDS ORDERED: Ondansetron 4 MG Tab.DIS PO PRN (10:25)
[2025-04-26] MEDS ORDERED: Sennosides/Docusate Sodium 50-8.6 MG Tab PO PRN (10:25)
[2025-04-26] MEDS ORDERED: Albuterol 0.083% 2.5 MG/3 ML Neb Soln INH PRN (10:27)
[2025-04-26] MEDS: Tiotropium BR/Olodaterol HCL 4 GM Inhalation Spray 2.5mcg/1 dose; 10 doses INH SCH (10:40)
[2025-04-26] MEDS: cefTRIAXone 1 GM Vial IVPUSH ONE (11:01)
[2025-04-26] MEDS: Azithromycin 500 MG in Sodium Chloride 0.9% 250 ML IV ONE (11:02)
[2025-04-26] MEDS: Enoxaparin 40 MG/0.4 ML Syringe SUBCUT SCH (11:02)
[2025-04-26] MEDS ORDERED: Albuterol/Ipratropium 3.0-0.5 MG/3 ML Neb Soln NEB PRN (14:24)
[2025-04-27] MEDS ORDERED: predniSONE 20 MG Tab PO SCH (07:00)
[2025-04-27] MEDS ORDERED: Azithromycin 500 MG in Sodium Chloride 0.9% 250 ML IV ONE (09:00)
== END 2025-04-26 15:41 | disposition home or self-care (01) | DRG 189 ==
LOC: JD.ED 18:11 → JD.MS 19:47
PROVIDERS: ADMIT Student in an Organized Health Care Education/Training Program; ATTEND Student in an Organized Health Care Education/Training Program
PROC: 4A033R1 Measurement of Arterial Saturation, Peripheral, Percutaneous Approach (ICD-10-PCS; principal; 2025-04-25)
DX: J96.22 Acute and chronic respiratory failure with hypercapnia (principal); J96.21 Acute and chronic respiratory failure with hypoxia; J96.01 Acute respiratory failure with hypoxia; F43.9 Reaction to severe stress, unspecified; Z91.198 Patient's noncompliance with other medical treatment and regimen for other reason; Z91.09 Other allergy status, other than to drugs and biological substances; J44.1 Chronic obstructive pulmonary disease with (acute) exacerbation; E78.00 Pure hypercholesterolemia, unspecified; K21.9 Gastro-esophageal reflux disease without esophagitis; M54.9 Dorsalgia, unspecified; F11.11 Opioid abuse, in remission; M19.90 Unspecified osteoarthritis, unspecified site; Z96.659 Presence of unspecified artificial knee joint; G89.29 Other chronic pain; Z96.619 Presence of unspecified artificial shoulder joint; Z86.16 Personal history of COVID-19; Z98.49 Cataract extraction status, unspecified eye; Z87.19 Personal history of other diseases of the digestive system; Z91.018 Allergy to other foods; Z79.52 Long term (current) use of systemic steroids
CPT/HCPCS: 36415; 36600; 80053; 82550; 82803; 83735; 84484; 85025; 93005; 94640; A9270; J0456; J2919; J7050; 84100; 93010; 94668; 94761; 96365; 96375; 99223; 99285; 99285-25; J0696; J1650

== ENCOUNTER 2025-05-12 07:05 | Emergency (ER) | payer MEDICARE, MEDICAID ==
[2025-05-12] MEDS: Albuterol/Ipratropium 3.0-0.5 MG/3 ML Neb Soln NEB ONE (07:30)
[2025-05-12 07:38] LABS: BASOPHILS PERCENT AUTO 0.4 % (0.0-1.0); EOSINOPHILS ABSOLUTE AUTO 0.2 K/mm3 (0.0-0.4); EOSINOPHILS PERCENT AUTO 2.6 % (0.0-6.0); HEMATOCRIT 41.3 % (42.0-52.0); HEMOGLOBIN 13.2 gm/dl (14.0-18.0); IMMATURE GRAN ABSOLUTE AUTO 0.16 K/mm3 (0.00-0.05); IMMATURE GRAN PERCENT AUTO 2.3 % (0.0-0.4); LYMPHOCYTES ABSOLUTE AUTO 1.4 K/mm3 (1.0-4.8); LYMPHOCYTES PERCENT AUTO 19.7 % (24.0-44.0); MEAN CORPUSCULAR HEMOGLOBIN 28.7 pg (28.0-32.0); MEAN CORPUSCULAR VOLUME 89.8 fl (83.0-99.0); MEAN PLATELET VOLUME 9.4 fl (9.4-12.4); MONOCYTES ABSOLUTE AUTO 1.1 K/mm3 (0.0-0.8); MONOCYTES PERCENT AUTO 15.1 % (0.0-8.0); NEUTROPHILS ABSOLUTE AUTO 4.2 K/mm3 (1.8-7.7); NEUTROPHILS PERCENT AUTO 59.9 % (41.0-71.0); PLATELET COUNT,PLT 283 K/mm3 (150-400); WHITE BLOOD CELL COUNT,WBC 7.01 K/mm3 (3.9-11.3)
[2025-05-12 08:08] LABS: A/G RATIO 0.7 (1-2); ANION GAP 8.1 (5-15); BILIRUBIN TOTAL 0.9 mg/dL (0.2-1.0); CALCIUM 8.7 mg/dL (8.5-10.1); EST CRCL DRUG DOSING (CG) 62.84 mL/min; MAGNESIUM 1.8 mg/dL (1.8-2.4); PROTEIN TOTAL,TP 7.4 g/dl (6.4-8.2)
[2025-05-12 08:15] LABS: POTASSIUM,K 3.1 mEq/L (3.5-5.1)
[2025-05-12] MEDS: cefTRIAXone 1 GM Vial IVPUSH ONE (08:20)
[2025-05-12] MEDS: Potassium Chloride 10 MEQ in Premix Bag 1 BAG IV SCH (08:49)
[2025-05-12] MEDS: Aspirin 81 MG Tab.Chew PO ONE (08:50)
== END 2025-05-12 12:42 | disposition home or self-care (01) ==
LOC: JD.ED 07:05
DX: J44.9 Chronic obstructive pulmonary disease, unspecified (principal); I50.9 Heart failure, unspecified; Z99.81 Dependence on supplemental oxygen; E78.00 Pure hypercholesterolemia, unspecified; Z91.018 Allergy to other foods; Z79.51 Long term (current) use of inhaled steroids; Z79.899 Other long term (current) drug therapy; Z86.16 Personal history of COVID-19
CPT/HCPCS: 36415; 71045; 80053; 82550; 83605; 83735; 83880; 84484; 85025; 93005; 94640; 96365; 96366; 96375; 99285; A9270; J0696; J3480; 93010; 99284

== ENCOUNTER 2025-06-06 22:41 | Emergency (ER) | payer MEDICARE, MEDICAID ==
[2025-06-06] MEDS ORDERED: Sodium Chloride 0.9% 10 ML Syringe FLUSH PRN (23:37)
[2025-06-06 23:43] LABS: BASOPHILS ABSOLUTE AUTO 0.1 K/mm3 (0.0-0.2); BASOPHILS PERCENT AUTO 0.9 % (0.0-1.0); EOSINOPHILS ABSOLUTE AUTO 0.1 K/mm3 (0.0-0.4); EOSINOPHILS PERCENT AUTO 2.1 % (0.0-6.0); IMMATURE GRAN ABSOLUTE AUTO 0.04 K/mm3 (0.00-0.05); IMMATURE GRAN PERCENT AUTO 0.7 % (0.0-0.4); LYMPHOCYTES ABSOLUTE AUTO 1.4 K/mm3 (1.0-4.8); LYMPHOCYTES PERCENT AUTO 23.5 % (24.0-44.0); MEAN PLATELET VOLUME 10.3 fl (9.4-12.4); MONOCYTES ABSOLUTE AUTO 0.7 K/mm3 (0.0-0.8); MONOCYTES PERCENT AUTO 12.9 % (0.0-8.0); NEUTROPHILS ABSOLUTE AUTO 3.4 K/mm3 (1.8-7.7); NEUTROPHILS PERCENT AUTO 59.9 % (41.0-71.0); NRBC ABSOLUTE 0.00 (0.00-0.02); NRBC PERCENT 0.0 % (0.0-0.2); PLATELET COUNT,PLT 234 K/mm3 (150-400); RED BLOOD CELL COUNT 4.18 M/mm3 (4.52-5.90); WHITE BLOOD CELL COUNT,WBC 5.74 K/mm3 (3.9-11.3)
[2025-06-07 00:05] LABS: LACTIC ACID 1.2 mmol/L (0.4-2.0)
[2025-06-07 00:08] LABS: A/G RATIO 0.8 (1-2); ALANINE AMINOTRANSFERASE,ALT 36.0 U/L (16-63); ASPARTATE AMNIOTRANSFERASE,AST 33.0 U/L (15-37); BILIRUBIN TOTAL 0.8 mg/dL (0.2-1.0); BLOOD UREA NITROGEN,BUN 14.0 mg/dL (7-18); CARBON DIOXIDE,CO2 34.0 mEq/L (21-32); CHLORIDE,CL 103.0 mEq/L (98-107); CREATININE 0.9 mg/dL (0.7-1.3); EST CRCL DRUG DOSING (CG) 69.83 mL/min; ESTIMATED GFR 89.0 mL/min (>60); GLUCOSE RANDOM 103.0 mg/dL (70-99); PHOSPHORUS 3.5 mg/dL (2.6-4.7); POTASSIUM,K 3.9 mEq/L (3.5-5.1); PROTEIN TOTAL,TP 6.7 g/dl (6.4-8.2); SODIUM,NA 140.0 mEq/L (136-145); TROPONIN I HIGH SENSITIVITY 15.0 pg/mL (<=76)
[2025-06-07] MEDS: methylPREDNISolone Sodium Succinate 125 MG/2 ML SDV IVPUSH ONE (02:47)
[2025-06-07 03:20] LABS: APPEARANCE,URINE CLEAR (Clear); GLUCOSE,URINE NEGATIVE (Negative); OCCULT BLOOD,URINE NEGATIVE (Negative)
== END 2025-06-07 04:07 | disposition home or self-care (01) ==
LOC: JD.ED 22:41
DX: J44.1 Chronic obstructive pulmonary disease with (acute) exacerbation (principal); Z79.899 Other long term (current) drug therapy; Z91.018 Allergy to other foods; Z79.51 Long term (current) use of inhaled steroids; Z86.16 Personal history of COVID-19
CPT/HCPCS: 36415; 71045; 80053; 81003; 83605; 83735; 83880; 84100; 84484; 85025; 85379; 93005; 94640; 96374; 99285; A9270; J2919; 93010; 99284

== ENCOUNTER 2025-06-13 01:39 | Emergency (ER) | payer MEDICARE, MEDICAID ==
[2025-06-13] MEDS ORDERED: Sodium Chloride 0.9% 10 ML Syringe FLUSH PRN (02:05)
[2025-06-13] MEDS: methylPREDNISolone Sodium Succinate 125 MG/2 ML SDV IVPUSH ONE (02:22)
[2025-06-13 02:26] LABS: BASOPHILS ABSOLUTE AUTO 0.1 K/mm3 (0.0-0.2); BASOPHILS PERCENT AUTO 0.7 % (0.0-1.0); EOSINOPHILS ABSOLUTE AUTO 0.2 K/mm3 (0.0-0.4); EOSINOPHILS PERCENT AUTO 2.7 % (0.0-6.0); IMMATURE GRAN ABSOLUTE AUTO 0.07 K/mm3 (0.00-0.05); IMMATURE GRAN PERCENT AUTO 1.0 % (0.0-0.4); LYMPHOCYTES ABSOLUTE AUTO 2.0 K/mm3 (1.0-4.8); LYMPHOCYTES PERCENT AUTO 28.9 % (24.0-44.0); MEAN PLATELET VOLUME 10.3 fl (9.4-12.4); MONOCYTES ABSOLUTE AUTO 0.6 K/mm3 (0.0-0.8); MONOCYTES PERCENT AUTO 9.1 % (0.0-8.0); NEUTROPHILS ABSOLUTE AUTO 4.1 K/mm3 (1.8-7.7); NEUTROPHILS PERCENT AUTO 57.6 % (41.0-71.0); NRBC ABSOLUTE 0.00 (0.00-0.02); NRBC PERCENT 0.0 % (0.0-0.2); PLATELET COUNT,PLT 313 K/mm3 (150-400); RED BLOOD CELL COUNT 4.67 M/mm3 (4.52-5.90); WHITE BLOOD CELL COUNT,WBC 7.03 K/mm3 (3.9-11.3)
[2025-06-13 02:45] LABS: A/G RATIO 0.9 (1-2); ALANINE AMINOTRANSFERASE,ALT 30.0 U/L (16-63); ASPARTATE AMNIOTRANSFERASE,AST 22.0 U/L (15-37); BILIRUBIN TOTAL 0.6 mg/dL (0.2-1.0); BLOOD UREA NITROGEN,BUN 19.0 mg/dL (7-18); CARBON DIOXIDE,CO2 30.0 mEq/L (21-32); CHLORIDE,CL 103.0 mEq/L (98-107); CREATININE 0.8 mg/dL (0.7-1.3); EST CRCL DRUG DOSING (CG) 65.78 mL/min; ESTIMATED GFR 92.0 mL/min (>60); GLUCOSE RANDOM 98.0 mg/dL (70-99); POTASSIUM,K 3.9 mEq/L (3.5-5.1); PROTEIN TOTAL,TP 6.6 g/dl (6.4-8.2); SODIUM,NA 141.0 mEq/L (136-145)
[2025-06-13 02:51] LABS: LACTIC ACID 1.0 mmol/L (0.4-2.0)
== END 2025-06-13 03:50 | disposition home or self-care (01) ==
LOC: JD.ED 01:39
DX: J45.909 Unspecified asthma, uncomplicated (principal); L03.115 Cellulitis of right lower limb; I50.9 Heart failure, unspecified; J44.9 Chronic obstructive pulmonary disease, unspecified; E78.00 Pure hypercholesterolemia, unspecified; K21.9 Gastro-esophageal reflux disease without esophagitis; Z91.018 Allergy to other foods; Z79.51 Long term (current) use of inhaled steroids; Z79.899 Other long term (current) drug therapy; Z86.16 Personal history of COVID-19
CPT/HCPCS: 36415; 71045; 80053; 83605; 83735; 85025; 93005; 94640; 96374; 96375; 99285; A9270; J0696; J2919

== ENCOUNTER 2025-06-20 01:17 | Emergency (ER) | payer MEDICARE, MEDICAID ==
[2025-06-20 01:51] LABS: BASOPHILS ABSOLUTE AUTO 0.1 K/mm3 (0.0-0.2); BASOPHILS PERCENT AUTO 0.6 % (0.0-1.0); EOSINOPHILS ABSOLUTE AUTO 0.2 K/mm3 (0.0-0.4); EOSINOPHILS PERCENT AUTO 1.9 % (0.0-6.0); IMMATURE GRAN ABSOLUTE AUTO 0.22 K/mm3 (0.00-0.05); IMMATURE GRAN PERCENT AUTO 2.5 % (0.0-0.4); LYMPHOCYTES ABSOLUTE AUTO 2.0 K/mm3 (1.0-4.8); LYMPHOCYTES PERCENT AUTO 22.4 % (24.0-44.0); MEAN PLATELET VOLUME 10.2 fl (9.4-12.4); MONOCYTES ABSOLUTE AUTO 0.9 K/mm3 (0.0-0.8); MONOCYTES PERCENT AUTO 9.7 % (0.0-8.0); NEUTROPHILS ABSOLUTE AUTO 5.6 K/mm3 (1.8-7.7); NEUTROPHILS PERCENT AUTO 62.9 % (41.0-71.0); NRBC ABSOLUTE 0.00 (0.00-0.02); NRBC PERCENT 0.0 % (0.0-0.2); PLATELET COUNT,PLT 276 K/mm3 (150-400); RED BLOOD CELL COUNT 4.75 M/mm3 (4.52-5.90); WHITE BLOOD CELL COUNT,WBC 8.85 K/mm3 (3.9-11.3)
[2025-06-20 03:07] LABS: LACTIC ACID 1.7 mmol/L (0.4-2.0)
[2025-06-20 03:13] LABS: A/G RATIO 0.9 (1-2); ALANINE AMINOTRANSFERASE,ALT 35.0 U/L (16-63); ASPARTATE AMNIOTRANSFERASE,AST 25.0 U/L (15-37); BILIRUBIN TOTAL 0.5 mg/dL (0.2-1.0); BLOOD UREA NITROGEN,BUN 25.0 mg/dL (7-18); CARBON DIOXIDE,CO2 33.0 mEq/L (21-32); CHLORIDE,CL 100.0 mEq/L (98-107); CREATININE 1.1 mg/dL (0.7-1.3); EST CRCL DRUG DOSING (CG) 57.13 mL/min; ESTIMATED GFR 70.0 mL/min (>60); GLUCOSE RANDOM 145.0 mg/dL (70-99); POTASSIUM,K 4.0 mEq/L (3.5-5.1); PROTEIN TOTAL,TP 6.5 g/dl (6.4-8.2); SODIUM,NA 139.0 mEq/L (136-145); TROPONIN I HIGH SENSITIVITY 16.0 pg/mL (<=76)
[2025-06-20 03:33] LABS: APPEARANCE,URINE CLEAR (Clear); GLUCOSE,URINE NEGATIVE (Negative); OCCULT BLOOD,URINE NEGATIVE (Negative)
[2025-06-20] MEDS: Furosemide 40 MG/4 ML VIAL IVPUSH ONE ×2 (03:58→04:21)
[2025-06-20] MEDS: Sodium Chloride 0.9% 10 ML Syringe FLUSH PRN (05:26)
[2025-06-20] MEDS: Iopamidol 755 Mg/ML 100 ML Bottle IVPUSH ONE (05:26)
[2025-06-20 05:27] LABS: CREATINE KINASE,CK 43 U/L (39-308); TROPONIN I HIGH SENSITIVITY 15 pg/mL (<=76)
[2025-06-22 13:47] LABS: TOXOPLASMA IGG <3.0 IU/mL (<=7.1); TOXOPLASMA IGM <3.0 AU/mL (<=7.9)
== END 2025-06-20 07:20 | disposition home or self-care (01) ==
LOC: JD.ED 01:17
DX: S32.029A Unspecified fracture of second lumbar vertebra, initial encounter for closed fracture (principal); S32.039A Unspecified fracture of third lumbar vertebra, initial encounter for closed fracture; J44.9 Chronic obstructive pulmonary disease, unspecified; K21.9 Gastro-esophageal reflux disease without esophagitis; Z86.16 Personal history of COVID-19; Z91.018 Allergy to other foods; Z79.51 Long term (current) use of inhaled steroids; Z79.899 Other long term (current) drug therapy; X58.XXXA Exposure to other specified factors, initial encounter
CPT/HCPCS: 36415; 71045; 71275; 72191; 74175; 80053; 81003; 82550; 83605; 83690; 83735; 83880; 84439; 84443; 84481; 84484; 85025; 86777; 86778; 93005; 94640; 96374; 99285; A9270; J1938; Q9967

== ENCOUNTER 2025-06-24 01:33 | Emergency (ER) | payer MEDICARE, MEDICAID ==
[2025-06-24] MEDS: Acetaminophen/oxyCODONE 325-5 MG Tab PO ONE (02:44)
== END 2025-06-24 02:52 | disposition home or self-care (01) ==
LOC: JD.ED 01:33
DX: S32.009A Unspecified fracture of unspecified lumbar vertebra, initial encounter for closed fracture (principal); J44.9 Chronic obstructive pulmonary disease, unspecified; Z86.16 Personal history of COVID-19; Z91.018 Allergy to other foods; Z79.51 Long term (current) use of inhaled steroids; Z79.899 Other long term (current) drug therapy; X58.XXXA Exposure to other specified factors, initial encounter
CPT/HCPCS: 99283; A9270

== ENCOUNTER 2025-07-09 05:21 | Emergency (ER) | payer MEDICARE, MEDICAID ==
[2025-07-09] MEDS: Ketorolac 60 MG/2 ML SDV IM ONE (06:14)
[2025-07-09] MEDS: Formoterol/Mometasone 100-5 MCG 8.8 GM Inhaler INH ONE (07:40)
[2025-07-09] MEDS ORDERED: Formoterol/Mometasone 100-5 MCG 8.8 GM Inhaler INH SCH (21:00)
== END 2025-07-09 07:49 | disposition home or self-care (01) ==
LOC: JD.ED 05:21
DX: M25.511 Pain in right shoulder (principal); J44.9 Chronic obstructive pulmonary disease, unspecified; E78.00 Pure hypercholesterolemia, unspecified; K21.9 Gastro-esophageal reflux disease without esophagitis; Z86.16 Personal history of COVID-19; Z91.018 Allergy to other foods; Z79.51 Long term (current) use of inhaled steroids; Z79.899 Other long term (current) drug therapy
CPT/HCPCS: 73030; 94640; 96372; 99285; A9270; J1885; 99284

== ENCOUNTER 2025-07-11 00:30 | Emergency (ER) | payer MEDICARE, MEDICAID ==
[2025-07-11] MEDS: Ondansetron 4 MG Tab.DIS PO ONE (01:03)
== END 2025-07-11 02:15 | disposition home or self-care (01) ==
LOC: JD.ED 00:30
DX: R51.9 Headache, unspecified (principal); S06.0X0D Concussion without loss of consciousness, subsequent encounter; J44.9 Chronic obstructive pulmonary disease, unspecified; K21.9 Gastro-esophageal reflux disease without esophagitis; Z86.16 Personal history of COVID-19; Z79.899 Other long term (current) drug therapy; Z91.018 Allergy to other foods; W19.XXXD Unspecified fall, subsequent encounter
CPT/HCPCS: 70450; 99284; A9270

== ENCOUNTER 2025-07-18 03:26 | Emergency (ER) | payer MEDICARE, MEDICAID | END 2025-07-18 06:31 | disposition home or self-care (01) | LOC: JD.ED 03:26 | DX: R21 Rash and other nonspecific skin eruption (principal); E78.00 Pure hypercholesterolemia, unspecified; J44.9 Chronic obstructive pulmonary disease, unspecified; K21.9 Gastro-esophageal reflux disease without esophagitis; Z91.018 Allergy to other foods; Z79.899 Other long term (current) drug therapy; Z86.16 Personal history of COVID-19 | CPT/HCPCS: 99282; A9270 ==

== ENCOUNTER 2025-07-25 21:29 | Emergency (ER) | payer MEDICARE, MEDICAID ==
[2025-07-25 22:39] LABS: BASOPHILS ABSOLUTE AUTO 0.0 K/mm3 (0.0-0.2); BASOPHILS PERCENT AUTO 0.3 % (0.0-1.0); EOSINOPHILS ABSOLUTE AUTO 0.0 K/mm3 (0.0-0.4); EOSINOPHILS PERCENT AUTO 0.6 % (0.0-6.0); IMMATURE GRAN ABSOLUTE AUTO 0.04 K/mm3 (0.00-0.05); IMMATURE GRAN PERCENT AUTO 0.6 % (0.0-0.4); LYMPHOCYTES ABSOLUTE AUTO 1.2 K/mm3 (1.0-4.8); LYMPHOCYTES PERCENT AUTO 19.2 % (24.0-44.0); MEAN PLATELET VOLUME 9.8 fl (9.4-12.4); MONOCYTES ABSOLUTE AUTO 0.9 K/mm3 (0.0-0.8); MONOCYTES PERCENT AUTO 14.7 % (0.0-8.0); NEUTROPHILS ABSOLUTE AUTO 4.0 K/mm3 (1.8-7.7); NEUTROPHILS PERCENT AUTO 64.6 % (41.0-71.0); NRBC ABSOLUTE 0.00 (0.00-0.02); NRBC PERCENT 0.0 % (0.0-0.2); PLATELET COUNT,PLT 207 K/mm3 (150-400); RED BLOOD CELL COUNT 4.14 M/mm3 (4.52-5.90); WHITE BLOOD CELL COUNT,WBC 6.21 K/mm3 (3.9-11.3)
[2025-07-25 23:07] LABS: A/G RATIO 0.9 (1-2); ALANINE AMINOTRANSFERASE,ALT 23.0 U/L (16-63); ASPARTATE AMNIOTRANSFERASE,AST 18.0 U/L (15-37); BILIRUBIN TOTAL 0.9 mg/dL (0.2-1.0); BLOOD UREA NITROGEN,BUN 18.0 mg/dL (7-18); CARBON DIOXIDE,CO2 31.0 mEq/L (21-32); CHLORIDE,CL 102.0 mEq/L (98-107); CREATININE 0.9 mg/dL (0.7-1.3); EST CRCL DRUG DOSING (CG) 72.1 mL/min; ESTIMATED GFR 89.0 mL/min (>60); GLUCOSE RANDOM 112.0 mg/dL (70-99); POTASSIUM,K 3.9 mEq/L (3.5-5.1); PROTEIN TOTAL,TP 6.1 g/dl (6.4-8.2); SODIUM,NA 139.0 mEq/L (136-145); TROPONIN I HIGH SENSITIVITY 14.0 pg/mL (<=76)
[2025-07-25] MEDS: methylPREDNISolone Sodium Succinate 2 GM Vial IV ONE (23:48)
[2025-07-26] MEDS: methylPREDNISolone Sodium Succinate 2 GM Vial IV ONE (00:10)
[2025-07-26] MEDS: Sodium Chloride 0.9% 10 ML Syringe FLUSH PRN (01:03)
[2025-07-26] MEDS: Iopamidol 612 MG/ML 100 ML Bottle IVPUSH ONE (01:03)
== END 2025-07-26 05:36 | disposition home or self-care (01) ==
LOC: JD.ED 21:29
DX: J44.9 Chronic obstructive pulmonary disease, unspecified (principal); E78.00 Pure hypercholesterolemia, unspecified; K21.9 Gastro-esophageal reflux disease without esophagitis; Z91.018 Allergy to other foods; Z79.899 Other long term (current) drug therapy; Z86.16 Personal history of COVID-19
CPT/HCPCS: 36415; 71046; 71260; 80053; 83880; 84484; 85025; 87428; 93005; 94640; 96374; 99285; A9270; J2919; Q9967; 99284

== ENCOUNTER 2025-08-01 21:39 | Emergency (ER) | payer MEDICARE, MEDICAID ==
[2025-08-01 22:42] LABS: BASE EXCESS ARTERIAL 7.8 (-2-2.0); BICARBONATE,ARTERIAL 33.3 meq/L (22.0-26.0); O2 SATURATION ARTERIAL 92.8 % (96.0-97.0); PCO2 ARTERIAL 49.0 mmHg (35.0-45.0); PO2 ARTERIAL 66.0 mmHg (80.0-100.0)
[2025-08-01 22:57] LABS: BASOPHILS ABSOLUTE AUTO 0.1 K/mm3 (0.0-0.2); BASOPHILS PERCENT AUTO 0.4 % (0.0-1.0); EOSINOPHILS ABSOLUTE AUTO 0.2 K/mm3 (0.0-0.4); EOSINOPHILS PERCENT AUTO 1.4 % (0.0-6.0); IMMATURE GRAN ABSOLUTE AUTO 0.24 K/mm3 (0.00-0.05); IMMATURE GRAN PERCENT AUTO 1.9 % (0.0-0.4); LYMPHOCYTES ABSOLUTE AUTO 2.5 K/mm3 (1.0-4.8); LYMPHOCYTES PERCENT AUTO 20.2 % (24.0-44.0); MEAN PLATELET VOLUME 11.9 fl (9.4-12.4); MONOCYTES ABSOLUTE AUTO 1.0 K/mm3 (0.0-0.8); MONOCYTES PERCENT AUTO 7.6 % (0.0-8.0); NEUTROPHILS ABSOLUTE AUTO 8.6 K/mm3 (1.8-7.7); NEUTROPHILS PERCENT AUTO 68.5 % (41.0-71.0); NRBC ABSOLUTE 0.00 (0.00-0.02); NRBC PERCENT 0.0 % (0.0-0.2); PLATELET COUNT,PLT 177 K/mm3 (150-400); RED BLOOD CELL COUNT 4.80 M/mm3 (4.52-5.90); WHITE BLOOD CELL COUNT,WBC 12.51 K/mm3 (3.9-11.3)
[2025-08-01] MEDS: methylPREDNISolone Sodium Succinate 125 MG/2 ML SDV IVPUSH ONE (23:37)
[2025-08-01 23:51] LABS: A/G RATIO 1.3 (1-2); ALANINE AMINOTRANSFERASE,ALT 32.0 U/L (16-63); ASPARTATE AMNIOTRANSFERASE,AST 19.0 U/L (15-37); BILIRUBIN TOTAL 0.4 mg/dL (0.2-1.0); BLOOD UREA NITROGEN,BUN 28.0 mg/dL (7-18); CARBON DIOXIDE,CO2 33.0 mEq/L (21-32); CHLORIDE,CL 100.0 mEq/L (98-107); CREATINE KINASE,CK 49.0 U/L (39-308); CREATININE 0.9 mg/dL (0.7-1.3); EST CRCL DRUG DOSING (CG) 58.47 mL/min; ESTIMATED GFR 89.0 mL/min (>60); GLUCOSE RANDOM 93.0 mg/dL (70-99); POTASSIUM,K 4.1 mEq/L (3.5-5.1); PROTEIN TOTAL,TP 6.6 g/dl (6.4-8.2); SODIUM,NA 139.0 mEq/L (136-145); TROPONIN I HIGH SENSITIVITY 21.0 pg/mL (<=76)
== END 2025-08-02 00:50 | disposition home or self-care (01) ==
LOC: JD.ED 21:39
DX: J44.1 Chronic obstructive pulmonary disease with (acute) exacerbation (principal); Z91.018 Allergy to other foods; Z86.16 Personal history of COVID-19; Z79.899 Other long term (current) drug therapy; Z79.51 Long term (current) use of inhaled steroids; Z91.199 Patient's noncompliance with other medical treatment and regimen due to unspecified reason; Z56.4 Discord with boss and workmates; Z77.118 Contact with and (suspected) exposure to other environmental pollution; Z91.09 Other allergy status, other than to drugs and biological substances
CPT/HCPCS: 36415; 36600; 71045; 80053; 82550; 82803; 83690; 83735; 83880; 84484; 85025; 93005; 94640; 96365; 96375; 99285; A9270; J0696; J1271; J2919

== ENCOUNTER 2025-08-04 11:35 | Emergency (ER) | payer MEDICARE, MEDICAID ==
[2025-08-04] MEDS ORDERED: Sodium Chloride 0.9% 10 ML Syringe FLUSH PRN (12:37)
[2025-08-04 13:01] LABS: O2 SATURATION ARTERIAL 93.8 % (96.0-97.0); PCO2 ARTERIAL 53.0 mmHg (35.0-45.0); PO2 ARTERIAL 69.0 mmHg (80.0-100.0)
[2025-08-04 13:02] LABS: BASE EXCESS ARTERIAL 7.4 (-2-2.0); BICARBONATE,ARTERIAL 33.6 meq/L (22.0-26.0)
[2025-08-04 13:18] LABS: BASOPHILS ABSOLUTE AUTO 0.0 K/mm3 (0.0-0.2); BASOPHILS PERCENT AUTO 0.2 % (0.0-1.0); EOSINOPHILS ABSOLUTE AUTO 0.1 K/mm3 (0.0-0.4); EOSINOPHILS PERCENT AUTO 0.2 % (0.0-6.0); IMMATURE GRAN ABSOLUTE AUTO 0.20 K/mm3 (0.00-0.05); IMMATURE GRAN PERCENT AUTO 0.8 % (0.0-0.4); LYMPHOCYTES ABSOLUTE AUTO 1.5 K/mm3 (1.0-4.8); LYMPHOCYTES PERCENT AUTO 5.8 % (24.0-44.0); MEAN PLATELET VOLUME 10.0 fl (9.4-12.4); MONOCYTES ABSOLUTE AUTO 1.4 K/mm3 (0.0-0.8); MONOCYTES PERCENT AUTO 5.5 % (0.0-8.0); NEUTROPHILS ABSOLUTE AUTO 21.9 K/mm3 (1.8-7.7); NEUTROPHILS PERCENT AUTO 87.5 % (41.0-71.0); NRBC ABSOLUTE 0.00 (0.00-0.02); NRBC PERCENT 0.0 % (0.0-0.2); RED BLOOD CELL COUNT 4.83 M/mm3 (4.52-5.90); WHITE BLOOD CELL COUNT,WBC 25.03 K/mm3 (3.9-11.3)
[2025-08-04 13:20] LABS: PLATELET COUNT,PLT 284 K/mm3 (150-400)
[2025-08-04 13:37] LABS: A/G RATIO 0.9 (1-2); ALANINE AMINOTRANSFERASE,ALT 32.0 U/L (16-63); ASPARTATE AMNIOTRANSFERASE,AST 20.0 U/L (15-37); BILIRUBIN TOTAL 1.3 mg/dL (0.2-1.0); BLOOD UREA NITROGEN,BUN 23.0 mg/dL (7-18); CARBON DIOXIDE,CO2 33.0 mEq/L (21-32); CHLORIDE,CL 96.0 mEq/L (98-107); CREATININE 1.1 mg/dL (0.7-1.3); EST CRCL DRUG DOSING (CG) 57.13 mL/min; ESTIMATED GFR 70.0 mL/min (>60); GLUCOSE RANDOM 147.0 mg/dL (70-99); POTASSIUM,K 3.5 mEq/L (3.5-5.1); PROTEIN TOTAL,TP 6.9 g/dl (6.4-8.2); SODIUM,NA 136.0 mEq/L (136-145)
== END 2025-08-04 14:30 | disposition home or self-care (01) ==
LOC: JD.ED 11:35
DX: J44.1 Chronic obstructive pulmonary disease with (acute) exacerbation (principal); K21.9 Gastro-esophageal reflux disease without esophagitis; E78.00 Pure hypercholesterolemia, unspecified; Z91.018 Allergy to other foods; Z79.899 Other long term (current) drug therapy; Z86.16 Personal history of COVID-19; Z91.148 Patient's other noncompliance with medication regimen for other reason; Z99.81 Dependence on supplemental oxygen
CPT/HCPCS: 36415; 36600; 71046; 71046-26; 80053; 82803; 84443; 84484; 85025; 93005; 93010; 99284; 99285

== ENCOUNTER 2025-08-07 18:35 | Emergency (ER) | payer MEDICARE, MEDICAID ==
[2025-08-07] MEDS ORDERED: Sodium Chloride 0.9% 10 ML Syringe FLUSH PRN (19:50)
[2025-08-07 20:38] LABS: BASOPHILS ABSOLUTE AUTO 0.0 K/mm3 (0.0-0.2); BASOPHILS PERCENT AUTO 0.2 % (0.0-1.0); EOSINOPHILS ABSOLUTE AUTO 0.0 K/mm3 (0.0-0.4); EOSINOPHILS PERCENT AUTO 0.1 % (0.0-6.0); IMMATURE GRAN ABSOLUTE AUTO 0.20 K/mm3 (0.00-0.05); IMMATURE GRAN PERCENT AUTO 2.0 % (0.0-0.4); LYMPHOCYTES ABSOLUTE AUTO 0.7 K/mm3 (1.0-4.8); LYMPHOCYTES PERCENT AUTO 7.1 % (24.0-44.0); MEAN PLATELET VOLUME 9.8 fl (9.4-12.4); MONOCYTES ABSOLUTE AUTO 0.7 K/mm3 (0.0-0.8); MONOCYTES PERCENT AUTO 6.7 % (0.0-8.0); NEUTROPHILS ABSOLUTE AUTO 8.4 K/mm3 (1.8-7.7); NEUTROPHILS PERCENT AUTO 83.9 % (41.0-71.0); NRBC ABSOLUTE 0.00 (0.00-0.02); NRBC PERCENT 0.0 % (0.0-0.2); PLATELET COUNT,PLT 286 K/mm3 (150-400); RED BLOOD CELL COUNT 3.94 M/mm3 (4.52-5.90); WHITE BLOOD CELL COUNT,WBC 10.02 K/mm3 (3.9-11.3)
[2025-08-07 21:05] LABS: A/G RATIO 0.7 (1-2); ALANINE AMINOTRANSFERASE,ALT 27.0 U/L (16-63); ASPARTATE AMNIOTRANSFERASE,AST 14.0 U/L (15-37); BILIRUBIN TOTAL 0.3 mg/dL (0.2-1.0); BLOOD UREA NITROGEN,BUN 25.0 mg/dL (7-18); CARBON DIOXIDE,CO2 33.0 mEq/L (21-32); CHLORIDE,CL 99.0 mEq/L (98-107); CREATININE 0.7 mg/dL (0.7-1.3); EST CRCL DRUG DOSING (CG) 89.78 mL/min; ESTIMATED GFR 95.0 mL/min (>60); GLUCOSE RANDOM 154.0 mg/dL (70-99); PROTEIN TOTAL,TP 6.2 g/dl (6.4-8.2); SODIUM,NA 135.0 mEq/L (136-145); TSH 0.078 uIU/mL (0.358-3.74)
[2025-08-07 21:11] LABS: POTASSIUM,K 5.0 mEq/L (3.5-5.1)
[2025-08-08] MEDS: Furosemide 40 MG/4 ML VIAL IVPUSH ONE (00:13)
[2025-08-08 01:17] LABS: APPEARANCE,URINE CLEAR (Clear); GLUCOSE,URINE NEGATIVE (Negative); OCCULT BLOOD,URINE NEGATIVE (Negative)
== END 2025-08-08 04:35 | disposition home or self-care (01) ==
LOC: JD.ED 18:35
DX: L03.116 Cellulitis of left lower limb (principal); I50.9 Heart failure, unspecified; E78.00 Pure hypercholesterolemia, unspecified; J44.9 Chronic obstructive pulmonary disease, unspecified; Z86.16 Personal history of COVID-19; Z79.899 Other long term (current) drug therapy; Z91.018 Allergy to other foods
CPT/HCPCS: 36415; 71045; 73630; 80053; 81003; 83880; 84443; 85025; 85379; 85652; 86140; 93005; 93970; 96374; 96375; 99284; J0696; J1938

== ENCOUNTER 2025-08-10 18:12 | Emergency (ER) | payer MEDICARE, MEDICAID ==
[2025-08-10 18:57] LABS: MEAN PLATELET VOLUME 9.5 fl (9.4-12.4); NRBC ABSOLUTE 0.00 (0.00-0.02); NRBC PERCENT 0.0 % (0.0-0.2); PLATELET COUNT,PLT 328 K/mm3 (150-400); RED BLOOD CELL COUNT 4.64 M/mm3 (4.52-5.90); WHITE BLOOD CELL COUNT,WBC 9.62 K/mm3 (3.9-11.3)
[2025-08-10] MEDS: VANCOmycin 2 GM/400 ML 2 GM in Premix Bag 1 BAG IV ONE (19:30)
[2025-08-10] MEDS: Sodium Chloride 0.9% 10 ML Syringe FLUSH PRN (19:31)
[2025-08-10 19:36] LABS: INR 1.04
[2025-08-10 19:38] LABS: A/G RATIO 0.7 (1-2); ALANINE AMINOTRANSFERASE,ALT 33.0 U/L (16-63); ASPARTATE AMNIOTRANSFERASE,AST 18.0 U/L (15-37); BILIRUBIN TOTAL 0.4 mg/dL (0.2-1.0); BLOOD UREA NITROGEN,BUN 21.0 mg/dL (7-18); CARBON DIOXIDE,CO2 32.0 mEq/L (21-32); CHLORIDE,CL 100.0 mEq/L (98-107); CREATININE 0.9 mg/dL (0.7-1.3); EST CRCL DRUG DOSING (CG) 69.83 mL/min; ESTIMATED GFR 89.0 mL/min (>60); GLUCOSE RANDOM 200.0 mg/dL (70-99); POTASSIUM,K 4.6 mEq/L (3.5-5.1); PROTEIN TOTAL,TP 6.9 g/dl (6.4-8.2); SODIUM,NA 139.0 mEq/L (136-145)
[2025-08-10 19:40] LABS: BAND PERCENT MAN 0 % (0-10); BASOPHILS PERCENT MAN 0 (0.2-1.2); EOSINOPHILS PERCENT MAN 0 % (0.8-7.0); LYMPHOCYTES PERCENT MAN 8 % (20-40); MONOCYTES PERCENT MAN 3 % (2-10)
[2025-08-10 19:41] LABS: PLATELET COUNT ESTIMATE ADEQUATE
[2025-08-10 19:43] LABS: LACTIC ACID 2.1 mmol/L (0.4-2.0)
== END 2025-08-10 22:28 | disposition home or self-care (01) ==
LOC: JD.ED 18:12
DX: L03.116 Cellulitis of left lower limb (principal); J44.9 Chronic obstructive pulmonary disease, unspecified; K21.9 Gastro-esophageal reflux disease without esophagitis; E78.00 Pure hypercholesterolemia, unspecified; Z86.16 Personal history of COVID-19; Z79.899 Other long term (current) drug therapy; Z91.018 Allergy to other foods
CPT/HCPCS: 36415; 80053; 83605; 85007; 85027; 85610; 85652; 86140; 87040; 96365; 96366; 99283; J3375

== ENCOUNTER 2025-08-13 14:01 | Emergency (ER) | payer MEDICARE, MEDICAID | END 2025-08-13 14:40 | disposition left against medical advice (07) | LOC: JD.ED 14:01 | DX: L03.116 Cellulitis of left lower limb (principal); R46.89 Other symptoms and signs involving appearance and behavior; J44.9 Chronic obstructive pulmonary disease, unspecified; M19.90 Unspecified osteoarthritis, unspecified site; Z91.018 Allergy to other foods; Z86.16 Personal history of COVID-19 | CPT/HCPCS: 99283 ==

== ENCOUNTER 2025-08-13 19:44 | Inpatient (IN) | payer MEDICARE, MEDICAID ==
[2025-08-13] MEDS ORDERED: Sodium Chloride 0.9% 10 ML Syringe FLUSH PRN ×2 (20:27→20:32)
[2025-08-13 20:32] LABS: BASOPHILS ABSOLUTE AUTO 0.0 K/mm3 (0.0-0.2); BASOPHILS PERCENT AUTO 0.6 % (0.0-1.0); EOSINOPHILS ABSOLUTE AUTO 0.1 K/mm3 (0.0-0.4); EOSINOPHILS PERCENT AUTO 1.8 % (0.0-6.0); IMMATURE GRAN ABSOLUTE AUTO 0.28 K/mm3 (0.00-0.05); IMMATURE GRAN PERCENT AUTO 4.3 % (0.0-0.4); LYMPHOCYTES ABSOLUTE AUTO 1.4 K/mm3 (1.0-4.8); LYMPHOCYTES PERCENT AUTO 21.9 % (24.0-44.0); MEAN PLATELET VOLUME 9.2 fl (9.4-12.4); MONOCYTES ABSOLUTE AUTO 0.6 K/mm3 (0.0-0.8); MONOCYTES PERCENT AUTO 9.3 % (0.0-8.0); NEUTROPHILS ABSOLUTE AUTO 4.1 K/mm3 (1.8-7.7); NEUTROPHILS PERCENT AUTO 62.1 % (41.0-71.0); NRBC ABSOLUTE 0.00 (0.00-0.02); NRBC PERCENT 0.0 % (0.0-0.2); PLATELET COUNT,PLT 290 K/mm3 (150-400); RED BLOOD CELL COUNT 4.64 M/mm3 (4.52-5.90); WHITE BLOOD CELL COUNT,WBC 6.57 K/mm3 (3.9-11.3)
[2025-08-13 21:03] LABS: A/G RATIO 0.7 (1-2); ALANINE AMINOTRANSFERASE,ALT 31.0 U/L (16-63); ASPARTATE AMNIOTRANSFERASE,AST 17.0 U/L (15-37); BILIRUBIN TOTAL 0.3 mg/dL (0.2-1.0); BLOOD UREA NITROGEN,BUN 17.0 mg/dL (7-18); CARBON DIOXIDE,CO2 38.0 mEq/L (21-32); CHLORIDE,CL 103.0 mEq/L (98-107); CREATININE 0.9 mg/dL (0.7-1.3); EST CRCL DRUG DOSING (CG) 69.83 mL/min; ESTIMATED GFR 89.0 mL/min (>60); GLUCOSE RANDOM 93.0 mg/dL (70-99); POTASSIUM,K 4.3 mEq/L (3.5-5.1); PROTEIN TOTAL,TP 6.6 g/dl (6.4-8.2); SODIUM,NA 141.0 mEq/L (136-145)
[2025-08-13] MEDS ORDERED: Acetaminophen/HYDROcodone 325-5 MG Tab PO PRN (21:07)
[2025-08-13] MEDS ORDERED: Ondansetron 4 MG/2 ML SDV IV PRN (21:07)
[2025-08-13] MEDS ORDERED: Ketorolac 15 MG/ML SDV IVPUSH PRN (21:16)
[2025-08-13] MEDS: VANCOmycin 2 GM/400 ML 2 GM in Premix Bag 1 BAG IV ONE (21:24)
[2025-08-13 21:25] LABS: LACTIC ACID 0.9 mmol/L (0.4-2.0)
[2025-08-13] MEDS: Sodium Chloride 0.9% 10 ML Syringe FLUSH PRN (21:27)
[2025-08-13] MEDS: Iopamidol 755 Mg/ML 100 ML Bottle IVPUSH ONE (21:27)
[2025-08-13 22:58] LABS: APPEARANCE,URINE CLEAR (Clear); GLUCOSE,URINE NEGATIVE (Negative); OCCULT BLOOD,URINE NEGATIVE (Negative)
[2025-08-14 05:49] LABS: BASOPHILS ABSOLUTE AUTO 0.0 K/mm3 (0.0-0.2); BASOPHILS PERCENT AUTO 0.5 % (0.0-1.0); EOSINOPHILS ABSOLUTE AUTO 0.1 K/mm3 (0.0-0.4); EOSINOPHILS PERCENT AUTO 1.4 % (0.0-6.0); IMMATURE GRAN ABSOLUTE AUTO 0.25 K/mm3 (0.00-0.05); IMMATURE GRAN PERCENT AUTO 3.8 % (0.0-0.4); LYMPHOCYTES ABSOLUTE AUTO 1.3 K/mm3 (1.0-4.8); LYMPHOCYTES PERCENT AUTO 19.1 % (24.0-44.0); MEAN PLATELET VOLUME 9.3 fl (9.4-12.4); MONOCYTES ABSOLUTE AUTO 0.5 K/mm3 (0.0-0.8); MONOCYTES PERCENT AUTO 8.1 % (0.0-8.0); NEUTROPHILS ABSOLUTE AUTO 4.4 K/mm3 (1.8-7.7); NEUTROPHILS PERCENT AUTO 67.1 % (41.0-71.0); NRBC ABSOLUTE 0.00 (0.00-0.02); NRBC PERCENT 0.0 % (0.0-0.2); PLATELET COUNT,PLT 254 K/mm3 (150-400); RED BLOOD CELL COUNT 4.28 M/mm3 (4.52-5.90); WHITE BLOOD CELL COUNT,WBC 6.56 K/mm3 (3.9-11.3)
[2025-08-14] MEDS ORDERED: Budesonide 0.5 MG/2 ML Neb Susp NEB SCH (06:00)
[2025-08-14 06:13] LABS: A/G RATIO 0.7 (1-2); ALANINE AMINOTRANSFERASE,ALT 26.0 U/L (16-63); ASPARTATE AMNIOTRANSFERASE,AST 14.0 U/L (15-37); BILIRUBIN TOTAL 0.4 mg/dL (0.2-1.0); BLOOD UREA NITROGEN,BUN 13.0 mg/dL (7-18); CARBON DIOXIDE,CO2 34.0 mEq/L (21-32); CHLORIDE,CL 102.0 mEq/L (98-107); CREATININE 0.7 mg/dL (0.7-1.3); EST CRCL DRUG DOSING (CG) 89.78 mL/min; ESTIMATED GFR 95.0 mL/min (>60); GLUCOSE RANDOM 117.0 mg/dL (70-99); POTASSIUM,K 4.3 mEq/L (3.5-5.1); PROTEIN TOTAL,TP 5.9 g/dl (6.4-8.2); SODIUM,NA 140.0 mEq/L (136-145)
[2025-08-14] MEDS: Budesonide 0.5 MG/2 ML Neb Susp NEB SCH (08:54)
[2025-08-14] MEDS: VANCOmycin 1.5 GM/300 ML 1.5 GM in Premix Bag 1 BAG IV SCH (15:38)
[2025-08-15 05:51] LABS: BASOPHILS ABSOLUTE AUTO 0.0 K/mm3 (0.0-0.2); BASOPHILS PERCENT AUTO 0.3 % (0.0-1.0); EOSINOPHILS ABSOLUTE AUTO 0.1 K/mm3 (0.0-0.4); EOSINOPHILS PERCENT AUTO 1.2 % (0.0-6.0); IMMATURE GRAN ABSOLUTE AUTO 0.24 K/mm3 (0.00-0.05); IMMATURE GRAN PERCENT AUTO 4.1 % (0.0-0.4); LYMPHOCYTES ABSOLUTE AUTO 1.4 K/mm3 (1.0-4.8); LYMPHOCYTES PERCENT AUTO 22.9 % (24.0-44.0); MEAN PLATELET VOLUME 9.3 fl (9.4-12.4); MONOCYTES ABSOLUTE AUTO 0.6 K/mm3 (0.0-0.8); MONOCYTES PERCENT AUTO 10.3 % (0.0-8.0); NEUTROPHILS ABSOLUTE AUTO 3.6 K/mm3 (1.8-7.7); NEUTROPHILS PERCENT AUTO 61.2 % (41.0-71.0); NRBC ABSOLUTE 0.00 (0.00-0.02); NRBC PERCENT 0.0 % (0.0-0.2); PLATELET COUNT,PLT 241 K/mm3 (150-400); RED BLOOD CELL COUNT 4.23 M/mm3 (4.52-5.90); WHITE BLOOD CELL COUNT,WBC 5.90 K/mm3 (3.9-11.3)
[2025-08-15 06:20] LABS: A/G RATIO 0.7 (1-2); ALANINE AMINOTRANSFERASE,ALT 25.0 U/L (16-63); ASPARTATE AMNIOTRANSFERASE,AST 14.0 U/L (15-37); BILIRUBIN TOTAL 0.3 mg/dL (0.2-1.0); BLOOD UREA NITROGEN,BUN 15.0 mg/dL (7-18); CARBON DIOXIDE,CO2 34.0 mEq/L (21-32); CHLORIDE,CL 101.0 mEq/L (98-107); CREATININE 0.8 mg/dL (0.7-1.3); EST CRCL DRUG DOSING (CG) 78.56 mL/min; ESTIMATED GFR 92.0 mL/min (>60); GLUCOSE RANDOM 116.0 mg/dL (70-99); POTASSIUM,K 4.3 mEq/L (3.5-5.1); PROTEIN TOTAL,TP 6.0 g/dl (6.4-8.2); SODIUM,NA 140.0 mEq/L (136-145)
== END 2025-08-15 12:50 | disposition home or self-care (01) | DRG 603 ==
LOC: JD.ED 19:44 → JD.MS 21:07
PROVIDERS: ADMIT Family Medicine; ATTEND Family Medicine
DX: L03.116 Cellulitis of left lower limb (principal); J44.9 Chronic obstructive pulmonary disease, unspecified; E78.00 Pure hypercholesterolemia, unspecified; K21.9 Gastro-esophageal reflux disease without esophagitis; M54.9 Dorsalgia, unspecified; G89.29 Other chronic pain; I50.9 Heart failure, unspecified; I87.2 Venous insufficiency (chronic) (peripheral); M19.90 Unspecified osteoarthritis, unspecified site; E55.9 Vitamin D deficiency, unspecified; Z96.659 Presence of unspecified artificial knee joint; Z96.619 Presence of unspecified artificial shoulder joint; Z86.16 Personal history of COVID-19; Z98.49 Cataract extraction status, unspecified eye; Z98.890 Other specified postprocedural states; Z79.899 Other long term (current) drug therapy; Z99.81 Dependence on supplemental oxygen
CPT/HCPCS: 36415; 73701-26-LT; 73701-LT; 80053; 80202; 81003; 83605; 83735; 83880; 85025; 85652; 86140; 87040; 94640; 94761; 99284; A9270-GY; J1650; J3375; Q9967

== ENCOUNTER 2025-08-17 13:10 | Emergency (ER) | payer MEDICARE, MEDICAID | END 2025-08-17 13:40 | disposition home or self-care (01) | LOC: JD.ED 13:10 | DX: Z48.00 Encounter for change or removal of nonsurgical wound dressing (principal) | CPT/HCPCS: 99281 ==

== ENCOUNTER 2025-08-21 22:27 | Emergency (ER) | payer MEDICARE, MEDICAID ==
[2025-08-21] MEDS ORDERED: Sodium Chloride 0.9% 10 ML Syringe FLUSH PRN (23:02)
[2025-08-21] MEDS: Ketorolac 30 MG/ML SDV IVPUSH ONE (23:20)
[2025-08-21 23:24] LABS: BASOPHILS ABSOLUTE AUTO 0.0 K/mm3 (0.0-0.2); BASOPHILS PERCENT AUTO 1.0 % (0.0-1.0); EOSINOPHILS ABSOLUTE AUTO 0.1 K/mm3 (0.0-0.4); EOSINOPHILS PERCENT AUTO 2.2 % (0.0-6.0); IMMATURE GRAN ABSOLUTE AUTO 0.05 K/mm3 (0.00-0.05); IMMATURE GRAN PERCENT AUTO 1.2 % (0.0-0.4); LYMPHOCYTES ABSOLUTE AUTO 1.6 K/mm3 (1.0-4.8); LYMPHOCYTES PERCENT AUTO 39.2 % (24.0-44.0); MEAN PLATELET VOLUME 9.3 fl (9.4-12.4); MONOCYTES ABSOLUTE AUTO 0.6 K/mm3 (0.0-0.8); MONOCYTES PERCENT AUTO 14.7 % (0.0-8.0); NEUTROPHILS ABSOLUTE AUTO 1.7 K/mm3 (1.8-7.7); NEUTROPHILS PERCENT AUTO 41.7 % (41.0-71.0); NRBC ABSOLUTE 0.00 (0.00-0.02); NRBC PERCENT 0.0 % (0.0-0.2); PLATELET COUNT,PLT 290 K/mm3 (150-400); RED BLOOD CELL COUNT 4.21 M/mm3 (4.52-5.90); WHITE BLOOD CELL COUNT,WBC 4.16 K/mm3 (3.9-11.3)
[2025-08-21 23:48] LABS: A/G RATIO 0.8 (1-2); ALANINE AMINOTRANSFERASE,ALT 25.0 U/L (16-63); ASPARTATE AMNIOTRANSFERASE,AST 26.0 U/L (15-37); BILIRUBIN TOTAL 0.3 mg/dL (0.2-1.0); BLOOD UREA NITROGEN,BUN 24.0 mg/dL (7-18); CARBON DIOXIDE,CO2 29.0 mEq/L (21-32); CHLORIDE,CL 104.0 mEq/L (98-107); CREATINE KINASE,CK 84.0 U/L (39-308); CREATININE 0.8 mg/dL (0.7-1.3); EST CRCL DRUG DOSING (CG) 78.56 mL/min; ESTIMATED GFR 92.0 mL/min (>60); GLUCOSE RANDOM 111.0 mg/dL (70-99); POTASSIUM,K 4.2 mEq/L (3.5-5.1); PROTEIN TOTAL,TP 7.0 g/dl (6.4-8.2); SODIUM,NA 141.0 mEq/L (136-145)
== END 2025-08-22 02:10 | disposition home or self-care (01) ==
LOC: JD.ED 22:27
DX: L03.115 Cellulitis of right lower limb (principal); M79.10 Myalgia, unspecified site; J44.9 Chronic obstructive pulmonary disease, unspecified; E78.00 Pure hypercholesterolemia, unspecified; K21.9 Gastro-esophageal reflux disease without esophagitis; Z86.16 Personal history of COVID-19; Z79.899 Other long term (current) drug therapy; Z91.018 Allergy to other foods
CPT/HCPCS: 36415; 80053; 80143; 82550; 85025; 86140; 96374; 99284; J1885

== ENCOUNTER 2025-09-02 19:26 | Emergency (ER) | payer MEDICARE, MEDICAID ==
[2025-09-02 20:23] LABS: BASOPHILS ABSOLUTE AUTO 0.0 K/mm3 (0.0-0.2); BASOPHILS PERCENT AUTO 0.6 % (0.0-1.0); EOSINOPHILS ABSOLUTE AUTO 0.1 K/mm3 (0.0-0.4); EOSINOPHILS PERCENT AUTO 2.5 % (0.0-6.0); IMMATURE GRAN ABSOLUTE AUTO 0.04 K/mm3 (0.00-0.05); IMMATURE GRAN PERCENT AUTO 0.8 % (0.0-0.4); LYMPHOCYTES ABSOLUTE AUTO 1.5 K/mm3 (1.0-4.8); LYMPHOCYTES PERCENT AUTO 28.0 % (24.0-44.0); MEAN PLATELET VOLUME 9.6 fl (9.4-12.4); MONOCYTES ABSOLUTE AUTO 0.9 K/mm3 (0.0-0.8); MONOCYTES PERCENT AUTO 17.3 % (0.0-8.0); NEUTROPHILS ABSOLUTE AUTO 2.7 K/mm3 (1.8-7.7); NEUTROPHILS PERCENT AUTO 50.8 % (41.0-71.0); NRBC ABSOLUTE 0.00 (0.00-0.02); NRBC PERCENT 0.0 % (0.0-0.2); PLATELET COUNT,PLT 278 K/mm3 (150-400); RED BLOOD CELL COUNT 4.20 M/mm3 (4.52-5.90); WHITE BLOOD CELL COUNT,WBC 5.25 K/mm3 (3.9-11.3)
[2025-09-02 20:44] LABS: A/G RATIO 0.8 (1-2); ALANINE AMINOTRANSFERASE,ALT 23.0 U/L (16-63); ASPARTATE AMNIOTRANSFERASE,AST 23.0 U/L (15-37); BILIRUBIN TOTAL 0.4 mg/dL (0.2-1.0); BLOOD UREA NITROGEN,BUN 18.0 mg/dL (7-18); CARBON DIOXIDE,CO2 31.0 mEq/L (21-32); CHLORIDE,CL 104.0 mEq/L (98-107); CREATININE 0.8 mg/dL (0.7-1.3); EST CRCL DRUG DOSING (CG) 78.56 mL/min; ESTIMATED GFR 92.0 mL/min (>60); GLUCOSE RANDOM 112.0 mg/dL (70-99); POTASSIUM,K 4.0 mEq/L (3.5-5.1); PROTEIN TOTAL,TP 6.8 g/dl (6.4-8.2); SODIUM,NA 140.0 mEq/L (136-145)
[2025-09-02] MEDS: Iopamidol 612 MG/ML 100 ML Bottle IVPUSH ONE (20:52)
[2025-09-02] MEDS: Sodium Chloride 0.9% 10 ML Syringe FLUSH ONE (22:02)
== END 2025-09-02 22:50 | disposition home or self-care (01) ==
LOC: JD.ED 19:26
DX: R07.89 Other chest pain (principal); J44.9 Chronic obstructive pulmonary disease, unspecified; M19.90 Unspecified osteoarthritis, unspecified site; Z91.018 Allergy to other foods; Z86.16 Personal history of COVID-19; W01.198A Fall on same level from slipping, tripping and stumbling with subsequent striking against other object, initial encounter
CPT/HCPCS: 36415; 71101; 74177; 80053; 83690; 85025; 94762; 96360; 96361; 99284; A9270; J7030; Q9967; 99283

== ENCOUNTER 2025-09-10 13:19 | Emergency (ER) | payer MEDICARE, MEDICAID ==
[2025-09-10] MEDS ORDERED: Sodium Chloride 0.9% 10 ML Syringe FLUSH PRN (14:04)
[2025-09-10 14:38] LABS: BASOPHILS ABSOLUTE AUTO 0.0 K/mm3 (0.0-0.2); BASOPHILS PERCENT AUTO 0.6 % (0.0-1.0); EOSINOPHILS ABSOLUTE AUTO 0.1 K/mm3 (0.0-0.4); EOSINOPHILS PERCENT AUTO 1.9 % (0.0-6.0); IMMATURE GRAN ABSOLUTE AUTO 0.03 K/mm3 (0.00-0.05); IMMATURE GRAN PERCENT AUTO 0.6 % (0.0-0.4); LYMPHOCYTES ABSOLUTE AUTO 1.3 K/mm3 (1.0-4.8); LYMPHOCYTES PERCENT AUTO 23.3 % (24.0-44.0); MEAN PLATELET VOLUME 9.6 fl (9.4-12.4); MONOCYTES ABSOLUTE AUTO 0.7 K/mm3 (0.0-0.8); MONOCYTES PERCENT AUTO 13.6 % (0.0-8.0); NEUTROPHILS ABSOLUTE AUTO 3.2 K/mm3 (1.8-7.7); NEUTROPHILS PERCENT AUTO 60.0 % (41.0-71.0); NRBC ABSOLUTE 0.00 (0.00-0.02); NRBC PERCENT 0.0 % (0.0-0.2); PLATELET COUNT,PLT 240 K/mm3 (150-400); RED BLOOD CELL COUNT 3.96 M/mm3 (4.52-5.90); WHITE BLOOD CELL COUNT,WBC 5.37 K/mm3 (3.9-11.3)
[2025-09-10] MEDS: Sodium Chloride 0.9% 10 ML Syringe FLUSH ONE (14:38)
[2025-09-10] MEDS: Iopamidol 612 MG/ML 100 ML Bottle IVPUSH ONE (14:38)
[2025-09-10 14:56] LABS: A/G RATIO 0.9 (1-2); ALANINE AMINOTRANSFERASE,ALT 24.0 U/L (16-63); ASPARTATE AMNIOTRANSFERASE,AST 18.0 U/L (15-37); BILIRUBIN TOTAL 0.5 mg/dL (0.2-1.0); BLOOD UREA NITROGEN,BUN 12.0 mg/dL (7-18); CARBON DIOXIDE,CO2 32.0 mEq/L (21-32); CHLORIDE,CL 102.0 mEq/L (98-107); CREATININE 0.7 mg/dL (0.7-1.3); EST CRCL DRUG DOSING (CG) 89.78 mL/min; ESTIMATED GFR 95.0 mL/min (>60); GLUCOSE RANDOM 102.0 mg/dL (70-99); POTASSIUM,K 3.9 mEq/L (3.5-5.1); PROTEIN TOTAL,TP 6.6 g/dl (6.4-8.2); SODIUM,NA 141.0 mEq/L (136-145)
== END 2025-09-10 16:25 | disposition home or self-care (01) ==
LOC: JD.ED 13:19
DX: S20.212A Contusion of left front wall of thorax, initial encounter (principal); S30.11XA Contusion of abdominal wall, initial encounter; S00.81XA Abrasion of other part of head, initial encounter; E78.00 Pure hypercholesterolemia, unspecified; J44.9 Chronic obstructive pulmonary disease, unspecified; K21.9 Gastro-esophageal reflux disease without esophagitis; Z91.018 Allergy to other foods; Z79.899 Other long term (current) drug therapy; Z86.16 Personal history of COVID-19; Z87.891 Personal history of nicotine dependence; W18.39XA Other fall on same level, initial encounter; Y93.89 Activity, other specified
CPT/HCPCS: 36415; 70450; 71260; 74177; 80053; 83690; 85025; 99284; Q9967

== ENCOUNTER 2025-09-16 17:04 | Emergency (ER) | payer MEDICARE, MEDICAID ==
[2025-09-16] MEDS ORDERED: Sodium Chloride 0.9% 10 ML Syringe FLUSH PRN (17:27)
[2025-09-16 17:41] LABS: BASOPHILS ABSOLUTE AUTO 0.0 K/mm3 (0.0-0.2); BASOPHILS PERCENT AUTO 0.6 % (0.0-1.0); EOSINOPHILS ABSOLUTE AUTO 0.1 K/mm3 (0.0-0.4); EOSINOPHILS PERCENT AUTO 1.1 % (0.0-6.0); IMMATURE GRAN ABSOLUTE AUTO 0.05 K/mm3 (0.00-0.05); IMMATURE GRAN PERCENT AUTO 0.8 % (0.0-0.4); LYMPHOCYTES ABSOLUTE AUTO 1.6 K/mm3 (1.0-4.8); LYMPHOCYTES PERCENT AUTO 24.5 % (24.0-44.0); MEAN PLATELET VOLUME 9.3 fl (9.4-12.4); MONOCYTES ABSOLUTE AUTO 0.7 K/mm3 (0.0-0.8); MONOCYTES PERCENT AUTO 10.1 % (0.0-8.0); NEUTROPHILS ABSOLUTE AUTO 4.1 K/mm3 (1.8-7.7); NEUTROPHILS PERCENT AUTO 62.9 % (41.0-71.0); NRBC ABSOLUTE 0.00 (0.00-0.02); NRBC PERCENT 0.0 % (0.0-0.2); PLATELET COUNT,PLT 282 K/mm3 (150-400); RED BLOOD CELL COUNT 4.82 M/mm3 (4.52-5.90); WHITE BLOOD CELL COUNT,WBC 6.54 K/mm3 (3.9-11.3)
[2025-09-16 17:46] LABS: APPEARANCE,URINE CLEAR (Clear); GLUCOSE,URINE NEGATIVE (Negative); OCCULT BLOOD,URINE NEGATIVE (Negative)
[2025-09-16] MEDS: Ondansetron 4 MG/2 ML SDV IVPUSH ONE (17:46)
[2025-09-16 17:54] LABS: EPITHELIAL CELLS,URINE 0-5 /hpf (0-5)
[2025-09-16 18:04] LABS: A/G RATIO 0.9 (1-2); ALANINE AMINOTRANSFERASE,ALT 23.0 U/L (16-63); ASPARTATE AMNIOTRANSFERASE,AST 24.0 U/L (15-37); BILIRUBIN TOTAL 1.0 mg/dL (0.2-1.0); BLOOD UREA NITROGEN,BUN 12.0 mg/dL (7-18); CARBON DIOXIDE,CO2 29.0 mEq/L (21-32); CHLORIDE,CL 105.0 mEq/L (98-107); CREATININE 0.8 mg/dL (0.7-1.3); EST CRCL DRUG DOSING (CG) 73.44 mL/min; ESTIMATED GFR 92.0 mL/min (>60); GLUCOSE RANDOM 99.0 mg/dL (70-99); POTASSIUM,K 4.0 mEq/L (3.5-5.1); PROTEIN TOTAL,TP 7.8 g/dl (6.4-8.2); SODIUM,NA 141.0 mEq/L (136-145)
[2025-09-16] MEDS: Iopamidol 612 MG/ML 100 ML Bottle IVPUSH ONE (19:10)
[2025-09-16] MEDS: Sodium Chloride 0.9% 10 ML Syringe FLUSH ONE (19:11)
[2025-09-16] MEDS: Ketorolac 30 MG/ML SDV IVPUSH ONE (20:18)
== END 2025-09-17 09:15 | disposition home or self-care (01) ==
LOC: JD.ED 17:04
DX: K52.9 Noninfective gastroenteritis and colitis, unspecified (principal); J44.9 Chronic obstructive pulmonary disease, unspecified; M19.90 Unspecified osteoarthritis, unspecified site; Z91.018 Allergy to other foods; Z86.16 Personal history of COVID-19
CPT/HCPCS: 36415; 74177; 80053; 81001; 83690; 85025; 86140; 96361; 96374; 96375; 99284; J2405; J7030; Q9967; 99283; J1885

== ENCOUNTER 2025-09-22 17:40 | Emergency (ER) | payer MEDICARE, MEDICAID ==
[2025-09-22] MEDS ORDERED: Sodium Chloride 0.9% 10 ML Syringe FLUSH PRN (18:21)
[2025-09-22 19:15] LABS: BASOPHILS ABSOLUTE AUTO 0.0 K/mm3 (0.0-0.2); BASOPHILS PERCENT AUTO 0.4 % (0.0-1.0); EOSINOPHILS ABSOLUTE AUTO 0.1 K/mm3 (0.0-0.4); EOSINOPHILS PERCENT AUTO 2.7 % (0.0-6.0); IMMATURE GRAN ABSOLUTE AUTO 0.02 K/mm3 (0.00-0.05); IMMATURE GRAN PERCENT AUTO 0.4 % (0.0-0.4); LYMPHOCYTES ABSOLUTE AUTO 1.1 K/mm3 (1.0-4.8); LYMPHOCYTES PERCENT AUTO 23.8 % (24.0-44.0); MEAN PLATELET VOLUME 9.7 fl (9.4-12.4); MONOCYTES ABSOLUTE AUTO 0.9 K/mm3 (0.0-0.8); MONOCYTES PERCENT AUTO 19.8 % (0.0-8.0); NEUTROPHILS ABSOLUTE AUTO 2.4 K/mm3 (1.8-7.7); NEUTROPHILS PERCENT AUTO 52.9 % (41.0-71.0); NRBC ABSOLUTE 0.00 (0.00-0.02); NRBC PERCENT 0.0 % (0.0-0.2); PLATELET COUNT,PLT 255 K/mm3 (150-400); RED BLOOD CELL COUNT 3.98 M/mm3 (4.52-5.90); WHITE BLOOD CELL COUNT,WBC 4.45 K/mm3 (3.9-11.3)
[2025-09-22] MEDS: Ketorolac 15 MG/ML SDV IVPUSH ONE (19:26)
[2025-09-22 19:35] LABS: A/G RATIO 0.8 (1-2); ALANINE AMINOTRANSFERASE,ALT 21.0 U/L (16-63); ASPARTATE AMNIOTRANSFERASE,AST 20.0 U/L (15-37); BILIRUBIN TOTAL 0.6 mg/dL (0.2-1.0); BLOOD UREA NITROGEN,BUN 16.0 mg/dL (7-18); CARBON DIOXIDE,CO2 32.0 mEq/L (21-32); CHLORIDE,CL 103.0 mEq/L (98-107); CREATININE 0.6 mg/dL (0.7-1.3); EST CRCL DRUG DOSING (CG) 104.74 mL/min; ESTIMATED GFR 100.0 mL/min (>60); GLUCOSE RANDOM 106.0 mg/dL (70-99); POTASSIUM,K 4.1 mEq/L (3.5-5.1); PROTEIN TOTAL,TP 6.6 g/dl (6.4-8.2); SODIUM,NA 140.0 mEq/L (136-145)
[2025-09-22 19:45] LABS: APPEARANCE,URINE CLEAR (Clear); GLUCOSE,URINE NEGATIVE (Negative); OCCULT BLOOD,URINE TRACE-INTACT (Negative)
[2025-09-22] MEDS: Iopamidol 612 MG/ML 100 ML Bottle IVPUSH ONE (20:02)
[2025-09-22] MEDS: Sodium Chloride 0.9% 10 ML Syringe FLUSH ONE (20:03)
[2025-09-22 20:16] LABS: EPITHELIAL CELLS,URINE 0-5 /hpf (0-5)
== END 2025-09-22 21:14 | disposition home or self-care (01) ==
LOC: JD.ED 17:40
DX: R10.9 Unspecified abdominal pain (principal); L03.116 Cellulitis of left lower limb; L03.115 Cellulitis of right lower limb; J44.9 Chronic obstructive pulmonary disease, unspecified; M19.90 Unspecified osteoarthritis, unspecified site; Z91.018 Allergy to other foods; Z79.899 Other long term (current) drug therapy; Z86.16 Personal history of COVID-19
CPT/HCPCS: 36415; 74177; 80053; 81001; 83690; 85025; 96365; 96375; 99284; J2543; J7030; Q9967; J1885

== ENCOUNTER 2025-10-01 03:53 | Emergency (ER) | payer MEDICARE, MEDICAID ==
[2025-10-01] MEDS: cefTRIAXone 1 GM, Lidocaine 1% 2.1 ML IM ONE (04:21)
[2025-10-01 04:34] LABS: BASOPHILS ABSOLUTE AUTO 0.1 K/mm3 (0.0-0.2); BASOPHILS PERCENT AUTO 1.0 % (0.0-1.0); EOSINOPHILS ABSOLUTE AUTO 0.2 K/mm3 (0.0-0.4); EOSINOPHILS PERCENT AUTO 3.9 % (0.0-6.0); IMMATURE GRAN ABSOLUTE AUTO 0.06 K/mm3 (0.00-0.05); IMMATURE GRAN PERCENT AUTO 1.0 % (0.0-0.4); LYMPHOCYTES ABSOLUTE AUTO 1.8 K/mm3 (1.0-4.8); LYMPHOCYTES PERCENT AUTO 30.7 % (24.0-44.0); MEAN PLATELET VOLUME 9.6 fl (9.4-12.4); MONOCYTES ABSOLUTE AUTO 0.8 K/mm3 (0.0-0.8); MONOCYTES PERCENT AUTO 13.0 % (0.0-8.0); NEUTROPHILS ABSOLUTE AUTO 2.9 K/mm3 (1.8-7.7); NEUTROPHILS PERCENT AUTO 50.4 % (41.0-71.0); NRBC ABSOLUTE 0.00 (0.00-0.02); NRBC PERCENT 0.0 % (0.0-0.2); PLATELET COUNT,PLT 269 K/mm3 (150-400); RED BLOOD CELL COUNT 4.09 M/mm3 (4.52-5.90); WHITE BLOOD CELL COUNT,WBC 5.84 K/mm3 (3.9-11.3)
[2025-10-01 05:03] LABS: A/G RATIO 0.8 (1-2); ALANINE AMINOTRANSFERASE,ALT 17.0 U/L (16-63); ASPARTATE AMNIOTRANSFERASE,AST 16.0 U/L (15-37); BILIRUBIN TOTAL 0.3 mg/dL (0.2-1.0); BLOOD UREA NITROGEN,BUN 24.0 mg/dL (7-18); CARBON DIOXIDE,CO2 30.0 mEq/L (21-32); CHLORIDE,CL 101.0 mEq/L (98-107); CREATININE 0.7 mg/dL (0.7-1.3); EST CRCL DRUG DOSING (CG) 81.02 mL/min; ESTIMATED GFR 95.0 mL/min (>60); GLUCOSE RANDOM 106.0 mg/dL (70-99); POTASSIUM,K 4.4 mEq/L (3.5-5.1); PROTEIN TOTAL,TP 6.9 g/dl (6.4-8.2); SODIUM,NA 139.0 mEq/L (136-145)
== END 2025-10-01 05:35 | disposition home or self-care (01) ==
LOC: JD.ED 03:53
DX: M25.511 Pain in right shoulder (principal); L03.116 Cellulitis of left lower limb; J44.9 Chronic obstructive pulmonary disease, unspecified; Z91.018 Allergy to other foods; Z79.899 Other long term (current) drug therapy; Z86.16 Personal history of COVID-19
CPT/HCPCS: 36415; 73030; 80053; 85025; 86140; 96372; 99283; J0696; J2003; 99284

== ENCOUNTER 2025-10-08 18:56 | Emergency (ER) | payer MEDICARE, MEDICAID ==
[2025-10-08] MEDS: Acetaminophen/oxyCODONE 325-5 MG Tab PO ONE (19:51)
== END 2025-10-08 19:59 | disposition home or self-care (01) ==
LOC: JD.ED 18:56
DX: J41.0 Simple chronic bronchitis (principal); G89.4 Chronic pain syndrome; E78.00 Pure hypercholesterolemia, unspecified; K21.9 Gastro-esophageal reflux disease without esophagitis; Z76.0 Encounter for issue of repeat prescription; Z91.148 Patient's other noncompliance with medication regimen for other reason; Z86.16 Personal history of COVID-19; Z79.899 Other long term (current) drug therapy; Z91.018 Allergy to other foods
CPT/HCPCS: 99284; A9270; J7512

== ENCOUNTER 2025-10-24 10:00 | Emergency (ER) | payer MEDICARE, MEDICAID ==
[2025-10-24] MEDS ORDERED: Sodium Chloride 0.9% 10 ML Syringe FLUSH PRN (10:28)
[2025-10-24 10:37] LABS: BASOPHILS ABSOLUTE AUTO 0.0 K/mm3 (0.0-0.2); BASOPHILS PERCENT AUTO 0.6 % (0.0-1.0); EOSINOPHILS ABSOLUTE AUTO 0.1 K/mm3 (0.0-0.4); EOSINOPHILS PERCENT AUTO 1.4 % (0.0-6.0); IMMATURE GRAN ABSOLUTE AUTO 0.02 K/mm3 (0.00-0.05); IMMATURE GRAN PERCENT AUTO 0.4 % (0.0-0.4); LYMPHOCYTES ABSOLUTE AUTO 1.3 K/mm3 (1.0-4.8); LYMPHOCYTES PERCENT AUTO 26.4 % (24.0-44.0); MEAN PLATELET VOLUME 9.8 fl (9.4-12.4); MONOCYTES ABSOLUTE AUTO 0.5 K/mm3 (0.0-0.8); MONOCYTES PERCENT AUTO 9.7 % (0.0-8.0); NEUTROPHILS ABSOLUTE AUTO 3.1 K/mm3 (1.8-7.7); NEUTROPHILS PERCENT AUTO 61.5 % (41.0-71.0); NRBC ABSOLUTE 0.00 (0.00-0.02); NRBC PERCENT 0.0 % (0.0-0.2); PLATELET COUNT,PLT 253 K/mm3 (150-400); RED BLOOD CELL COUNT 4.77 M/mm3 (4.52-5.90); WHITE BLOOD CELL COUNT,WBC 5.04 K/mm3 (3.9-11.3)
[2025-10-24] MEDS: Ondansetron 4 MG/2 ML SDV IVPUSH ONE ×2 (10:47→13:42)
[2025-10-24 10:52] LABS: LACTIC ACID 0.9 mmol/L (0.4-2.0)
[2025-10-24 10:54] LABS: A/G RATIO 0.8 (1-2); ALANINE AMINOTRANSFERASE,ALT 22.0 U/L (16-63); ASPARTATE AMNIOTRANSFERASE,AST 20.0 U/L (15-37); BILIRUBIN TOTAL 1.2 mg/dL (0.2-1.0); BLOOD UREA NITROGEN,BUN 9.0 mg/dL (7-18); CARBON DIOXIDE,CO2 32.0 mEq/L (21-32); CHLORIDE,CL 102.0 mEq/L (98-107); CREATININE 0.8 mg/dL (0.7-1.3); EST CRCL DRUG DOSING (CG) 78.56 mL/min; ESTIMATED GFR 92.0 mL/min (>60); GLUCOSE RANDOM 99.0 mg/dL (70-99); POTASSIUM,K 4.2 mEq/L (3.5-5.1); PROTEIN TOTAL,TP 8.2 g/dl (6.4-8.2); SODIUM,NA 142.0 mEq/L (136-145)
[2025-10-24 11:57] LABS: APPEARANCE,URINE CLEAR (Clear); GLUCOSE,URINE NEGATIVE (Negative); OCCULT BLOOD,URINE NEGATIVE (Negative)
== END 2025-10-24 14:08 | disposition home or self-care (01) ==
LOC: JD.ED 10:00
DX: R11.2 Nausea with vomiting, unspecified (principal); Z91.018 Allergy to other foods; Z79.899 Other long term (current) drug therapy; Z86.16 Personal history of COVID-19
CPT/HCPCS: 36415; 80053; 81003; 83605; 84484; 85025; 85652; 86140; 87428; 93005; 96361; 96374; 96376; 99284; J2405; J7030; 93010; 99283